=== PATIENT | female | born 1995 | race Caucasian/White ===

== ENCOUNTER 2023-03-22 22:15 | Inpatient (IN) | payer BC, SELFPAY ==
[2023-03-22 22:34] VITALS: BP 115/73; PULSE 104
[2023-03-22 22:35] VITALS: TEMP 35.8
[2023-03-23] VITALS (21 sets, daily range): BP systolic 105–125; BP diastolic 59–79; PULSE 82–107; RESP 16–18; TEMP 35.7–36.6
--- NOTE | 2023-03-23 07:15 | W.PC.ACHO ---
Registration Status: REG OUT Primary Language: Preferred Language:
--- NOTE | 2023-03-23 08:34 | PM.EN ---
Event Note Event Note: patient is and arrived last evening with c/o painful contractions. She was seen in my office last evening and SVE 2-/-3 posterior. She then texted me from home and stated her contractions were getting closer together and more painful and she was going to come to the hospital. I arrived last evening and assessed her and her exam was the same as it was in my office. This morning patient states that the contractions are spacing out some but when she has them they are more painful than what she has experienced since yesterday morning. SVE 3-/-3 . Patient has made cervical change and states the contractions are more painful. I will admit for labor if she continues to change her cervix. I want her to increase her activity and have her shower, ambulate, use the birthing ball. RN to assess at noon, if cervical change patient can be admitted for labor. If cervix has not changed may consider sending her home. PVU and agrees with the plan of care.
[2023-03-23] MEDS: LACTATED RINGER'S SOLUTION 1,000 ML 125 ML IV (12:47)
[2023-03-23 12:49] LABS: Hematocrit 32.5 % (36.0-48.0); Hemoglobin 10.6 g/dL (12.0-16.0); Mean Corpuscular HGB Conc 32.6 g/dL (29.9-35.2); Mean Corpuscular Hemoglobin 27.3 pg (26.7-34.0); Mean Corpuscular Volume 83.8 fL (81.0-99.0); Mean Platelet Volume 10.1 fL (9.5-13.5); Platelet Count 331 10^3/uL (150-450); Red Blood Count 3.88 10^6/uL (4.20-5.40); Red Cell Distribution Width 14.6 % (11.0-15.0); White Blood Count 8.2 10^3/uL (4.0-11.0)
[2023-03-23] MEDS: OXYTOCIN/0.9 % SODIUM CHLORIDE 10 UNITS/500 ML PLAST..BAG 6 UNIT IV (12:49)
--- NOTE | 2023-03-23 13:29 | PM.EN ---
Event Note Event Note: 1320 to room to assess pt SVE AROM with sterile amnihook performed this provider with return of large amount of clear, odorless fluid. heart tones stable before during and after rupture of membranes. SVE after rupture 7--
[2023-03-23 13:47] LABS: Bilirubin Urine NEGATIVE (NEGATIVE); Blood Urine LARGE (NEGATIVE); Clarity Urine CLEAR (CLEAR); Color Urine LT. YELLOW (YELLOW); Glucose Urine UA NEGATIVE (NEGATIVE); Ketones Urine 40 mg/dL (NEGATIVE); Leukocyte Esterase Urine LARGE (NEGATIVE); Nitrite Urine NEGATIVE (NEGATIVE); Protein Urine NEGATIVE (NEG/TRACE); Specific Gravity Urine 1.015 (1.005-1.025); Urobilinogen Urine 0.2 EU/dL (0.2-1.0)
[2023-03-23 14:04] LABS: Urine Microscopic Indicated YES
[2023-03-23 14:07] LABS: Bacteria Urine MODERATE #/HPF (NONE SEEN); Mucus Urine SMALL (NONE SEEN); Squamous Epithelial Cell Urine MANY #/LPF (NONE/RARE); Urine Culture Indicated YES
[2023-03-23 14:10] LABS: Amphetamine Screen Urine NEGATIVE (NEGATIVE); Barbiturates Screen Urine NEGATIVE (NEGATIVE); Benzodiazepines Screen Urine NEGATIVE (NEGATIVE); Buprenorphine Screen Urine NEGATIVE (NEGATIVE); Cannabinoid Screen Urine NEGATIVE (NEGATIVE); Cocaine Screen Urine NEGATIVE (NEGATIVE); Methadone Screen Urine NEGATIVE (NEGATIVE); Methamphetamines Screen Urine NEGATIVE (NEGATIVE); Opiate Screen Urine NEGATIVE (NEGATIVE); Oxycodone Screen Urine NEGATIVE (NEGATIVE); Phencyclidine Screen Urine NEGATIVE (NEGATIVE); Tricyclic Antidepressant Urine NEGATIVE (NEGATIVE)
--- NOTE | 2023-03-23 15:08 | PM.OBPRCVD ---
Procedure Procedure: of viable baby boy over intact perineum events: Labor Augmentation Delivery augmentation: rupture of membranes and pitocin Delivery monitor: external FHT and external uterine Route of delivery: Episiotomy Description: none Laceration description: none Estimated blood loss (mL): 250 Anesthesia type: None Infant Gender: male presentation: vertex Placental delivery description: Spontaneous cord description: 3 Vessels heart rate - 1 minute: 100 bpm or Greater respiratory effort - 1 minute: Spontaneous/Strong Cry muscle tone - 1 minute: Active Movement reflex response - 1 minute: Prompt Response color - 1 minute: Bluish Hands or Feet total score - 1 minute: 9 heart rate - 5 minute: 100 bpm or Greater respiratory effort - 5 minute: Spontaneous/Strong Cry muscle tone - 5 minute: Active Movement reflex response - 5 minute: Prompt Response color - 5 minute: Bluish Hands or Feet total score - 5 minute: 9
[2023-03-23] MEDS: OXYTOCIN/0.9 % SODIUM CHLORIDE 20 UNITS/1,000 ML PLAST..BAG 125 UNIT IV (15:10)
[2023-03-23] MEDS: IBUPROFEN 400 MG TABLET 800 MG PO (16:52)
[2023-03-23] MEDS: BENZOCAINE/MENTHOL 85 GRAM SPRAY BOTTLE 1 APPLIC TOPICAL (19:15)
--- NOTE | 2023-03-23 19:18 | W.PC.ACHO ---
Registration Status: ADM LAURIE Primary Language: Ivorian Preferred Language: Ivorian Active Medications Generic Name Dose Route Start Last Admin Trade Name Freq PRN Reason Stop Dose Admin Acetaminophen 650 mg 03/23/23 15:14 Acetaminophen 325 Mg Tablet PO Q6H PRN Mild Pain Al Hydroxide/Mg Hydroxide 2,400 mg 03/23/23 15:19 Magnesium Hydroxide 2,400 Mg/10 Ml Oral.Susp PO Q6H PRN Dyspepsia Benzocaine/Menthol 1 applic 03/23/23 15:14 03/23/23 19:15 Benzocaine/Menthol 85 Gram [place] Bottle TOPICAL 1 applic Q2H PRN Administration Pain Carboprost Tromethamine 250 mcg 03/23/23 11:57 Carboprost Tromethamine 250 Mcg/Ml 1 Ml Vial IM 03/25/23 11:57 Q15M PRN Bleeding Diphtheria/Pertussis/Tetanus Vacc 0.5 ml 03/25/23 09:00 Adacel Diph,Pertuss(Acell),Tet Vac/Pf 0.5 Ml Adult Syringe IM 03/25/23 09:01 .ONCE ONE Docusate Sodium 100 mg 03/24/23 09:00 Docusate Sodium 100 Mg Capsule PO BID CUATE Ferrous Sulfate 325 mg 03/23/23 21:00 Ferrous Sulfate 325 Mg Tablet PO BID CUATE Oxytocin/Sodium Chloride 10 units in 500 mls @ 6 mls/hr 03/23/23 12:00 03/23/23 15:10 Pitocin 10 Unit/500 Ml-Ns IV Infused CONT CUATE Infusion Protocol 2 MILLIUNIT/MIN Lactated Ringer's 1,000 mls @ 125 mls/hr 03/23/23 12:15 03/23/23 15:11 Lactated Ringers IV Infused .Q8H CUATE Infusion Oxytocin 20 unit/ Sodium 1,002 mls @ 125 mls/hr 03/23/23 15:30 Chloride IV 03/23/23 23:29 Q8H CUATE Ibuprofen 800 mg 03/23/23 15:15 03/23/23 16:52 Ibuprofen 400 Mg Tablet PO 800 mg Q8H CUATE Administration Lidocaine 5 ml 03/23/23 11:57 Lidocaine Viscous 2% 15 Ml Solution TOPICAL ONCE PRN Pain Lidocaine 1 ml 03/23/23 11:57 Lidocaine Hcl 1% 200 Mg/20 Ml Mdv INJ ONCE PRN Pain Measles/Mumps/Rubella Vaccine Live 0.5 ml 03/25/23 09:00 Measles,Mumps,Rubella Vacc/Pf 0.5 Ml Vial SQ 03/25/23 09:01 .ONCE ONE Methylergonovine Maleate 0.2 mg 03/23/23 11:57 Methylergonovine Maleate 0.2 Mg/Ml Ampule IM 03/25/23 11:57 ONCE PRN Uterine Contractility/Contract Methylergonovine Maleate 0.2 mg 03/23/23 11:57 Methylergonovine Maleate 0.2 Mg Tablet PO 03/25/23 11:57 Q4H PRN Uterine Contractility/Contract Misoprostol 600 mcg 03/23/23 11:57 Misoprostol 100 Mcg Tablet PO 03/25/23 11:57 ONCE PRN Uterine Bleeding Misoprostol 800 mcg 03/23/23 11:57 Misoprostol 100 Mcg Tablet SL 03/25/23 11:57 ONCE PRN Uterine Bleeding Misoprostol 1,000 mcg 03/23/23 11:57 Misoprostol 100 Mcg Tablet IL 03/25/23 11:57 ONCE PRN Uterine Bleeding Oxytocin 10 unit 03/23/23 11:57 Oxytocin 10 Unit/Ml Vial IM 03/25/23 11:57 ONCE PRN Bleeding Simethicone 80 mg 03/23/23 15:19 Simethicone 80 Mg Tab.Chew PO QID PRN Abdominal Distention Temazepam 15 mg 03/23/23 20:00 Temazepam 15 Mg Capsule PO QHS PRN Sleep Witch Ling/Glycerin 1 pad 03/23/23 15:14 Glycerin/Witch Ling Pads TOPICAL Q2H PRN Pain Diet Category Date Time Status Regular Consistency Diet Diet 03/23/23 15:14 Active IV Insertion/Site Date of IV Line Insertion [20g 03/23/23 left Forearm] IV Insertion Time [20g left 12:25 Forearm] Neurology Patient orientation (short person,place,time,situation list)
[2023-03-23] MEDS: FERROUS SULFATE 325 MG TABLET PO (23:03)
[2023-03-24] MEDS: IBUPROFEN 400 MG TABLET 800 MG PO ×3 (01:29→21:37)
[2023-03-24 06:11] LABS: Basophils Percent Auto 0.4 % (0.2-2.0); Eosinophils Absolute Auto 0.1 10^3/uL (0.0-0.7); Eosinophils Percent Auto 1.2 % (0.9-7.0); Hematocrit 30.4 % (36.0-48.0); Hemoglobin 9.6 g/dL (12.0-16.0); Immature Granulocytes Abs Auto 0.02 10^3/uL (0.00-0.03); Immature Granulocytes Pct Auto 0.2 % (0.0-0.5); Lymphocytes Absolute Auto 2.2 10^3/uL (1.2-3.8); Lymphocytes Percent Auto 23.2 % (20.5-60.0); Mean Corpuscular HGB Conc 31.6 g/dL (29.9-35.2); Mean Corpuscular Hemoglobin 26.7 pg (26.7-34.0); Mean Corpuscular Volume 84.7 fL (81.0-99.0); Mean Platelet Volume 10.3 fL (9.5-13.5); Monocytes Absolute Auto 0.9 10^3/uL (0.3-0.8); Monocytes Percent Auto 9.9 % (1.7-12.0); Neutrophils Absolute Auto 6.1 10^3/uL (1.4-6.5); Neutrophils Percent Auto 65.1 % (43.0-75.0); Platelet Count 297 10^3/uL (150-450); Red Blood Count 3.59 10^6/uL (4.20-5.40); Red Cell Distribution Width 14.3 % (11.0-15.0); White Blood Count 9.4 10^3/uL (4.0-11.0)
[2023-03-24 08:42] VITALS: BP 106/64; PULSE 71
[2023-03-24] MEDS: DOCUSATE SODIUM 100 MG CAPSULE PO ×2 (08:49→21:37)
[2023-03-24] MEDS: FERROUS SULFATE 325 MG TABLET PO ×2 (08:49→21:37)
--- NOTE | 2023-03-24 13:34 | PM.OBPN ---
OB - PN: Subj Subjective Patient comments: no complaints and pain well controlled status: doing well Exam Constitutional Vital Signs, click to edit/add: Last Vital Signs Temp 96.3 F L 03/23/23 23:05 Pulse 71 03/24/23 08:42 Resp 16 03/23/23 08:54 BP 106/64 03/24/23 08:42 O2 Del Method Room Air 03/23/23 08:52 Documenting provider has reviewed patient's vital signs: yes Common normals: no apparent distress Respiratory Common normals: normal respiratory effort and clear to auscultation bilaterally Cardio Common normals: regular rate and regular rhythm GI Common normals: Normal to inspection, nondistended, normoactive bowel sounds present Extremity Common normals: no clubbing, cyanosis or edema and no calf tenderness Results Labs Labs: Short CBC 03/24/23 Range/Units 05:59 WBC 9.4 (4.0-11.0) 10^3/uL Hgb 9.6 L (12.0-16.0) g/dL Hct 30.4 L (36.0-48.0) % Plt Count 297 (150-450) 10^3/uL Urine 03/23/23 Range/Units 13:12 Urine Color Lt. yellow (YELLOW) Urine Clarity Clear (CLEAR) Urine pH 7.0 (5.0-9.0) Ur Specific Serafina 1.015 (1.005-1.025) Urine Protein Negative (NEG/TRACE) mg/dL Urine Glucose (UA) Negative (NEGATIVE) mg/dL OB - PN: A/P Plan - Vaginal Delivery day: 1 Plan: routine care, discharge home and follow up 6 weeks Time Spent with Patient Time: Total time spent is greater than 50% in coordination of care (as documented) at patient's floor/unit and/or counseling patient: Total time spent with greater than 50% in coordination of care (as documented) at patient's floor/unit and/or counseling patient: less than 15 minutes
[2023-03-25] VITALS (7 sets, daily range): BP systolic 103–118; BP diastolic 59–79; PULSE 72–90; RESP 16; TEMP 35.6–36.3
--- NOTE | 2023-04-03 13:01 | PM.OBDS ---
DS: Providers Provider Date of admission: 03/23/23 11:57 Primary care physician: Non-Staff Physician, Attending physician on admission: Anish Driver Discharging clinician: Anish Driver Anticipated date of discharge: 03/25/23 DS: Diagnosis Discharge Diagnosis (1) Normal vaginal delivery: Assessment and plan: CONDITION GOOD, AFEBRILE, VSS, REQUESTING DISCHARGE, CLINICAL EXAM NON FOCAL Plan DISCHARGE HOME OB - DS: Summary Hospital Course Hospital Course: UNCOMPLICATED Time spent discussing smoking cessation with patient: 3 to 10 minutes Infant Gender: male Discharge plan: home Time Spent with Patient Time attestation: Total time spent providing and/or coordinating discharge services: Time spent: less than 30 minutes Exam Constitutional Vital Signs, click to edit/add: Last Vital Signs Temp 97.1 F L 03/25/23 14:00 Pulse 90 03/25/23 13:38 Resp 16 03/25/23 14:00 BP 103/64 03/25/23 13:38 O2 Del Method Room Air 03/25/23 14:00 Discharge Plan Discharge Disposition: Home, Self-Care Condition: Good Assessment: CLINICAL EXAM NONFOCAL Plan of Treatment: DISCHARGE HOME Discharge Medications: Continued PNV [id number] fumarate-FA [] 28 mg iron- 800 mcg tablet 1 tab PO DAILY famotidine [Acid Controller] 20 mg tablet 20 mg PO DAILY Activity: resume usual activities as tolerated Diet: regular diet Patient Instructions: Vaginal Delivery (DC) Activity Restrictions/Additional Instructions: FBC vaginal delivery d/c instructions given. Forms: Portal Instructions Follow Up Appointments: f/u with Doctor Driver in 6 weeks Discharge Date/Time: 03/25/23 14:28 Discharge location: HOME
--- NOTE | 2023-04-03 13:04 | PM.OBDS ---
DS: Providers Provider Date of admission: 03/23/23 11:57 Primary care physician: Non-Staff Physician, Attending physician on admission: Anish Driver Discharging clinician: Anish Driver Anticipated date of discharge: 03/25/23 DS: Diagnosis Discharge Diagnosis (1) Normal vaginal delivery: Assessment and plan: PPD 2, REQUESTING DISCHARGE, AFEBRILE, VSS, BREAST FEEDING, NO NEED FOR PAIN MEDICATION Plan DISCHARGE HOME, FOLLOW UP IN 6 WEEKS WITH OB PROVIDER, CALL IN INTERIM FOR PROBLEM OR CONCERN OB - DS: Summary Hospital Course Hospital Course: UNCOMPLICATED Time spent discussing smoking cessation with patient: 3 to 10 minutes Peripartum Data - Vaginal Delivery Laceration description: none Complications complications: none Gender: male Discharge plan: home Status at Discharge Cognitive/behavioral status at discharge: NORMAL Time Spent with Patient Time attestation: Total time spent providing and/or coordinating discharge services: Time spent: less than 30 minutes Exam Constitutional Vital Signs, click to edit/add: Last Vital Signs Temp 97.1 F L 03/25/23 14:00 Pulse 90 03/25/23 13:38 Resp 16 03/25/23 14:00 BP 103/64 03/25/23 13:38 O2 Del Method Room Air 03/25/23 14:00 Documenting provider has reviewed patient's vital signs: yes Common normals: no apparent distress, average body habitus, oriented x3 and no limitations HENMT Common normals: normocephalic and head/scalp atraumatic Eye Common normals: PERRL Pupil: accommodation reflex normal Neck & C-Spine Common normals: full ROM and supple Respiratory Common normals: normal respiratory effort and no retractions Cardio Common normals: regular rate and regular rhythm GI Common normals: Normal to inspection, nondistended, normoactive bowel sounds present, soft to palpation and non-tender Common normals: no CVA tenderness Back & Pelvis Common normals: thoracic and lumbar spine normal to inspection and no thoracic nor lumbar tenderness Extremity Common normals: normal to inspection, full ROM and no calf tenderness Neuro Common normals: CN's II-XII intact bilaterally, moves all extremities, no focal motor deficits and no sensory deficits noted Psych Common normals: mental status grossly normal, thought process normal, cooperative, affect normal and speech normal Discharge Plan Discharge Disposition: Home, Self-Care Condition: Good Discharge Medications: Continued PNV cmb#95-ferrous fumarate-FA [] 28 mg iron- 800 mcg tablet 1 tab PO DAILY famotidine [Acid Controller] 20 mg tablet 20 mg PO DAILY Activity Restrictions/Additional Instructions: FBC vaginal delivery d/c instructions given. Forms: Portal Instructions Follow Up Appointments: f/u with Doctor Driver in 6 weeks Discharge Date/Time: 03/25/23 14:28
--- NOTE | 2023-04-10 09:29 | PM.OBDS ---
DS: Providers Provider Date of admission: 03/23/23 11:57 Primary care physician: Non-Staff Physician, DS: Diagnosis Discharge Diagnosis (1) Normal vaginal delivery: OB - DS: Summary Hospital Course Hospital Course: UNCOMPLICATED Time spent discussing smoking cessation with patient: 3 to 10 minutes Complications complications: none Delivery method: spontaneous vaginal delivery Gender: male Discharge plan: home Status at Discharge Cognitive/behavioral status at discharge: WNL Functional status at discharge: independent ambulation Time Spent with Patient Time attestation: Total time spent providing and/or coordinating discharge services: Time spent: less than 30 minutes Exam Constitutional Vital Signs, click to edit/add: Last Vital Signs Temp 97.1 F L 03/25/23 14:00 Pulse 90 03/25/23 13:38 Resp 16 03/25/23 14:00 BP 103/64 03/25/23 13:38 O2 Del Method Room Air 03/25/23 14:00 Common normals: no apparent distress HENMT Common normals: normocephalic and head/scalp atraumatic Eye Pupil: PERRL and accommodation reflex normal Neck & C-Spine Common normals: full ROM and supple Respiratory Common normals: normal respiratory effort Cardio Common normals: regular rate and regular rhythm GI Common normals: Normal to inspection, nondistended, normoactive bowel sounds present Common normals: no CVA tenderness Back & Pelvis Common normals: thoracic and lumbar spine normal to inspection and no thoracic nor lumbar tenderness Extremity Common normals: normal to inspection, full ROM and no calf tenderness Neuro Common normals: CN's II-XII intact bilaterally, moves all extremities, no focal motor deficits and no sensory deficits noted Psych Common normals: mental status grossly normal, thought process normal, cooperative, affect normal and speech normal Discharge Plan Discharge Disposition: Home, Self-Care Condition: Good Assessment: CLINICAL EXAM NONFOCAL Plan of Treatment: DISCHARGE HOME Discharge Medications: Continued PNV cmb#95-ferrous fumarate-FA [] 28 mg iron- 800 mcg tablet 1 tab PO DAILY famotidine [Acid Controller] 20 mg tablet 20 mg PO DAILY Activity: resume usual activities as tolerated Diet: regular diet Patient Instructions: Vaginal Delivery (DC) Activity Restrictions/Additional Instructions: FBC vaginal delivery d/c instructions given. Forms: Portal Instructions Follow Up Appointments: f/u with Doctor Neisha in 6 weeks Discharge Date/Time: 03/25/23 14:28 Discharge location: HOME
== END 2023-03-25 14:28 | disposition home or self-care (01) | DRG 807 ==
LOC: FBC 22:15 → FBCO 03-23 16:20 → FBC 03-23 16:20
PROVIDERS: Admitting Provider Midwife; Visit Provider Midwife
DX: O80 Encounter for full-term uncomplicated delivery (principal); Z37.0 Single live birth; Z3A.38 38 weeks gestation of pregnancy; Z86.16 Personal history of COVID-19
CPT/HCPCS: 36415; 59025; 59410; 80307; 81001; 85025; 85027; 86850; 86900; 86901; 87086; 96365; 96366; G0378

== ENCOUNTER 2023-03-30 08:14 | Outpatient (OUT) | payer BC, SELFPAY ==
--- OUTSIDE RECORDS SUMMARY | 2023-03-30 08:18 | XMS_ITS | CCD ---
Author Name Unknown Address [address] [place] [address] Organization [facility] Care Team Providers Care Social Services Coordinator Name Role Phone JUDY CORNELL Referring Unavailable MARBELLA, DR RINCON Admitting Unavailable MARBELLA, DR RINCON Attending Unavailable MARBELLA, DR RINCON Consulting Unavailable MARBELLA, DR RINCON Primary Care Unavailable FLORO, GAUTAM L Attending Unavailable FLORO, GAUTAM L Attending Unavailable FLORO, GAUTAM L Attending Unavailable FLORO, GAUTAM L Attending Unavailable FLORO, GAUTAM L Attending Unavailable FLORO, GAUTAM L Referring Unavailable FLORO, GAUTAM L Attending Unavailable FLORO, GAUTAM L Attending Unavailable Problems Active Problems Problem Classification Problem Date Documented Da te Episodic/Chronic Administrative/social admission (2 sources) Encounter for pre-employment examination; Translations: [Encounter for pre-employment examination] Onset: 12-26-2021 Episodic Past or Other Problems Problem Classification Problem Date Documented Da te Episodic/Chronic Immunizations and screening for infectious disease (4 sources) Contact with and (suspected) exposure to other viral communicable diseases; Translations: [CONTCT EXPS OTH VIRL COMMUNICABL DZ] Onset: 02-28-2020 Episodic Results Test Name Value Interpretation Reference Range Facility US OB FOLLOW UP TRANSABDOMIN AL APPROACHon 01-18-2023 US OB FOLLOW UP TRANSABDOMINAL APPROACH EXAM: US OB FOLLOW UP TRANSABDOMINAL APPROACH DATE: 01/18/2023 9:29 AM COMPARISON: 11/26/2022 Transabdominal ultrasound of the gravid uterus was performed. FINDINGS: A single live intrauterine is noted in breech position. cardiac activity is measured at 156 bpm. The cervix appears closed measuring approximately 4.6 cm in longitudinal length. A grade 0-appearing placenta is posterior/fundal without evidence of placenta previa. The amniotic fluid index measures approximately 14.2 cm measured in 4 quadrants, which is within normal limits for gestation. 46th percentile MEASUREMENTS: BPD 7.3 cm, HC 26.9 cm, FL 5.6 cm, AC 25.1 cm, which corresponds to 29 weeks 2 days, +/-2.5 weeks. ESTIMATED WEIGHT: 1369 g (3 lbs. 0 oz.), which is 28th percentile for gestation by LMP. No gross anatomic abnormalities are identified, within limits of the advanced gestational age. IMPRESSION: SINGLE LIVE INTRAUTERINE CORRESPONDING TO APPROXIMATELY 29 weeks 2 days, +/-2.5 weeks. NO GROSS ABNORMALITY IDENTIFIED, WITHIN THE LIMITS OF THE STUDY. ELECTRONICALLY SIGNED BY: Anish Fisher MD Normal Not Available US OB Growthon 02-12-2022 US OB Growth FINDINGS: Comparison made with prior examination of December 22, 2021 delivery was February 19, 2022, October 13, 2021 delivery at that time was February 25, 2022. Prior percentile weight was 68.8%. A single, live intrauterine is present with normal cardiac rate of 132 beats per minute. Normal activity and amniotic fluid volume. Amniotic fluid index is 10.0 cm. Morphology is grossly normal. The cervix is long and closed, 4.4 cm. The placenta is anterior, Grade 2 not associated with the cervical os. The current sonographic age is 37 weeks and 2 days, based on the following measurements: BPD 9.2 cm (37 weeks, 2 days) Head Circumference 33.7 cm ( 38 weeks, 5 days) Abdominal Circumference 32.7 cm (36 weeks, 4 days) Femur Length 7.1 cm (36 weeks, 3 days) Presentation Cephalic Placenta Anterior, Grade 2 Weight by Percentile 33.0% These measurements result in an estimated date of delivery of March 03, 2022. The current estimated weight is 3048 grams +/- grams (6 pound, 11ounces). IMPRESSION: 1.Single, live intrauterine , current sonographic age of 37 weeks and 2 days, with an estimated date of delivery of March 03, 2022. 2 Prior weight by percentile was 68.8% and now is 33.0% Report reported and signed by Marvin Hamilton on 02/12/2022 0957 Normal [facility] T-Spoton 12-29-2021 T-Spot. TB Test Normal [facility] Comment on above: Result Comment: [employer] [address] [place] [phone] (NOTE) T-SPOT TB Negative Normal Value: Negative A negative test result does not exclude the possibility of exposure to or infection with Mycobacterium tuberculosis (M tuberculosis). Patients with recent exposure to TB infected individuals exhibiting a negative T-SPOT.TB result should be considered for retesting within 6 weeks or if other relevant clinical symptoms indicate. Results from T-SPOT.TB testing must be used in conjunction with each individual's epidemiological history, current medical status, and results of other diagnostic evaluations. The T-SPOT.TB test is qualitative and results are reported as positive, borderline or negative, given that the test controls perform as expected. In line with the Centers for Disease Control and Prevention's 2010 recommendation to report quantitative measurements alongside the qualitative result, the laboratory provides spot counts for information purposes only. The T-SPOT.TB test should be interpreted as a quantitative test. Panel A Spot Count (Corrected for Negative Control) 0 Panel B Spot Count (Corrected for Negative Control) 1 Negative Control Passed Positive Control Passed Performed By: #### T SPOT #### [facility] [address] [place] [address] Vice President Quality Improvement: Sameer May MD US OB Growthon 12-22-2021 US OB Growth FINDINGS: Comparison made with prior examination of October 13, 2021 delivery at that time was February 25, 2022. weight at that time was 55.2% A single, live intrauterine is present with normal cardiac rate of 136 beats per minute. Normal activity and amniotic fluid volume. Amniotic fluid index is 18.0 cm. Morphology is grossly normal. The cervix is long and closed, 4.7 cm. The placenta is anterior, not associated with the cervical os. The current sonographic age is 31 weeks and 4 days, based on the following measurements: BPD 7.9 cm (31 weeks, 4 days) Head Circumference 29.2 cm (32 weeks, 2 days) Abdominal Circumference 27.5 cm (31 weeks, 4 days) Femur Length 6.0 cm ( 31 weeks, 0 days) Presentation Cephalic Placenta Anterior Grade 1 Weight by percentile 68.8% These measurements result in an estimated date of delivery of February 19, 2022. The current estimated weight is 1778 grams +/- grams ( 3 pound, 15 ounces). IMPRESSION: 1. Single, live intrauterine , current sonographic age of 31 weeks and 4 days, with an estimated date of delivery of February 19, 2022. (October 13, 2021 examination delivery date was February 25, 2022). 3. 68.8% weight by percentile (October 13, 2021 examination weight was 55.2%) Report reported and signed by Marvin Hamilton on 12/23/2021 0940 Normal [facility] US OB 2nd/3rd Trimesteron US OB 2nd/3rd Trimester FINDINGS: A single, live intrauterine is present with normal cardiac rate of 139 beats per minute. Normal activity and amniotic fluid volume. Amniotic fluid index is 11.0 cm. Morphology is grossly normal. The cervix is long and closed, 4.8 cm. The placenta is anterior, Grade 1 not associated with the cervical os. The current sonographic age is 20 weeks and 5 days, based on the following measurements: BPD 4.9 cm ( 20 weeks, 5 days) Head Circumference 18.4 cm (20 weeks, 5 days) Abdominal Circumference 15.6 cm ( 20 weeks, 5 days) Femur Length 3.4 cm ( 20 weeks, 6 days) Presentation Cephalic Placenta Anterior Grade 1 Weight by percentile 55.2% These measurements result in an estimated date of delivery of February 25, 2022. The current estimated weight is 376 grams +/- grams ( pound, 13 ounces). IMPRESSION: Single, live intrauterine , current sonographic age of 20 weeks and 5 days, with an estimated date of delivery of February 25, 2022. Report reported and signed by Marvin Hamilton on 10/14/2021 0931 Normal [facility] Encounters Encounter Date Encounter Type Care Provider Facility Start: 03-22-2023 End: 03-23-2023 ambulatory GAUTAM L FLORO Not Available Start: 03-15-2023 End: 03-16-2023 ambulatory GAUTAM L FLORO Not Available Start: 03-08-2023 End: 03-09-2023 ambulatory GAUTAM L FLORO Not Available Start: 03-02-2023 End: 03-03-2023 ambulatory GAUTAM L FLORO Not Available Start: 02-15-2023 End: 02-16-2023 ambulatory GAUTAM PATEL Not Available Start: 02-03-2023 End: 02-04-2023 ambulatory GAUTAM PATEL Not Available Start: 01-18-2023 End: 01-19-2023 ambulatory GAUTAM PATEL Not Available Start: 12-26-2021 End: 12-27-2021 [facility] Start: 02-28-2020 End: 02-28-[address] SERGEY TYSON Facility: Payers Date Payer Category Payer Unknown [id number] [id number] 1993 Unknown [id number] [id number] [id number] 1993 Unknown [id number] 2.16.84 [id number] 1993 Unknown [id number] 2.16.84 [id number] 1993 Unknown [id number] 1993 Unknown [id number] 1993 Unknown [id number] 1993 Unknown [id number] 1993 Unknown [id number] 1959 Unknown [id number] Clinical Note 02-24-2022 Note Date & Type Note Facility 02-24-2022 Note FINDINGS: Comparison made with prior two ultrasound evaluations February 12, 2022, December 22, 2021. A single, live intrauterine is present with normal cardiac rate of 128 beats per minute. Normal activity and amniotic fluid volume. Amniotic fluid index is 15 cm. Morphology is grossly normal. The cervix is long and closed, 3.6 cm. The placenta is anterior, not associated with the cervical os. The current sonographic age is 37 weeks and 4 days, based on the following measurements: BPD 9.3 cm (37 weeks,4 days) Head Circumference 33.4 cm (38 weeks, 2 days) Abdominal Circumference 32.7 cm (36 weeks,4 days) Femur Length 7.4 cm (37 weeks, 5 days) Presentation Cephalic Placenta Anterior Grade II Weight (g) by [id number] % * These measurements result in an estimated date of delivery of March 13, 2022. The current estimated weight is 3140 grams (6 pounds, 15 ounces). IMPRESSION: 1. Single, live intrauterine , current sonographic age of 37 weeks and 4 days, with an estimated date of delivery of March 13, 2022 (prior CHITO March 03, 2022) 2. Prior weight percentile was 68.8% (December 22, 2021), 33.0% (February 12, 2022), and currently 18.4% 3. Anterior placenta, Grade II, closed cervix * Estimated Weight (g) by Percentile is based upon an accurate estimated age based on last menstrual period. Report reported and signed by Marvin Hamilton on 02/24/2022 0956 [facility] Summary Purpose Family History No Family History Records FoundNo Family History Records FoundNo Family History Records FoundNo Family History Records Found Advance Directives No Advanced Directives Records FoundNo Advanced Directives Records FoundNo Advanced Directives Records FoundNo Advanced Directives Records Found Additional Source Comments INFORMATION SOURCE (unrecogn ized section and content) DATE CREATED AUTHOR 12/29/2021 [facility] DATE CREATED AUTHOR AUTHOR'S ORGANIZ ATION 02/24/2022 [facility] DATE CREATED AUTHOR AUTHOR'S ORGANIZ ATION 03/03/2022 [facility] DATE CREATED AUTHOR AUTHOR'S ORGANIZ ATION 03/27/2023 [facility] FOR RECORDS PERTAINING TO PATIENTS WHO ARE OR HAVE BEEN ENROLLED IN A CHEMICAL DEPENDENCY/SUBSTANCEABUSE PROGRAM, SOME INFORMATION MAY BE OMITTED. This clinical summary was aggregated from multiple sources. Caution should be exercised in using it in the provision of clinical care. This summary normalizes information from multiple sources, and as a consequence, information in this document may materially change the coding, format and clinical context of patient data. In addition, data may be omitted in some cases. CLINICAL DECISIONS SHOULD BE BASED ON THE PRIMARY CLINICAL RECORDS. [facility] [employer] [facility]. provides no warranty or guarantee of the accuracy or completeness of information in this document.
--- NOTE | 2023-03-30 13:31 | PC.NURSE ---
BrionnaDudleyon, and 7 day old son Aurelio arrive for follow up visit. Parents states are doing well and family adjusting well to new baby. Mom states I feel great, just tired sometimes Milk in, nipples intact, no redness, or open area on nipples. Brionna's VVS and assessment WNL. Denies concerns or questions about care for herself. Walker alert and tracks voices. VVS and assessment WNL. Feeds every 2 hours and has 1 longer stretch during the late evening . Usually nurses 1 breast. Encouraged to have baby nurse from both breasts each feed. Verbalized understanding. Baby to breast, quick reminder to bring baby to breast, not breast to baby. Deep latch noted and mom reports increased comfort, states doesn't feel like he is clamping down Reviewed benefits of deep asymmetrical latching and positioning close to mom's body. Verbalized understanding. Given information on plugged ducts, and mastitis. Has with second baby and does not want to experience again. Leaves ambulatory with all questions answered. Aware to call for concerns and of MOMS group.
[2023-03-30 13:35] VITALS: BP 110/73; PULSE 89; RESP 16; TEMP 36.6; O2SAT 97
== END 2023-03-30 11:25 | disposition home or self-care (01) ==
LOC: FBCO 08:15
PROVIDERS: Visit Provider Midwife
DX: Z39.2 Encounter for routine postpartum follow-up (principal)

== ENCOUNTER 2024-02-11 14:57 | Emergency (ER) | payer SELFPAY ==
[2024-02-11 15:04] VITALS: BP 138/90; PULSE 123; TEMP 36.7; O2SAT 98; BMI 23.4
--- NOTE | 2024-02-11 15:15 | US_ITS ---
[address] [address] Patient Name: KRISTEN PRIEST MRN: [id number] date: 1995 Sex: F Assigned Patient Location: ER Current Patient Location: ER Accession/Order Number: [id number] Exam Date: 02/11/2024 15:58 Report Date: 02/11/2024 17:08 At the request of: ESTHER AYALA Procedure: US OB transvaginal Obstetrical ultrasound, 1st trimester CLINICAL: Vaginal bleeding TECHNIQUE: Transabdominal and transvaginal obstetrical ultrasound was performed. FINDINGS: Comparison: None. UTERUS: Uterus is retroverted. A single intrauterine gestation sac is visualized. Mean sac diameter is 4.60 cm. Yolk sac and pole identified. [place] rump length is 48.4 mm. heart rate of 164 beats per minute. The cervix is closed. Cervical length of 3.6 cm. OVARIES/ADNEXA: Neither ovary is visualized. OTHER FINDINGS: There is a small hypoechoic area adjacent to the gestational sac measuring 1.9 x 0.6 x 0.6 cm compatible with a small subchorionic hemorrhage. ULTRASOUND GESTATIONAL AGE AND ESTIMATED DATE OF CONFINEMENT: The estimated gestational age by ultrasound is 11 weeks 4 days with an estimated date of confinement by the ultrasound of 08/28/2024. US/US OB transvaginal IMPRESSION: 1. Single viable intrauterine gestation with yolk sac and pole identified. heart rate of 164 beats per minute. Estimated gestational age by ultrasound is 11 weeks 4 days with an estimated date of confinement by ultrasound of 08/28/2024. Follow-up ultrasound at 18-22 weeks' gestation for anatomy evaluation. 2. 1.9 x 0.6 x 0.6 cm subchorionic hemorrhage. Attention on follow-up studies. 3. Closed cervix with cervical length of 3.6 cm. Electronically authenticated by: SNEHA FREITAS Date: 02/11/2024 17:08
--- NOTE | 2024-02-11 15:16 | ED_ITS ---
HPI - General Chief complaint: Vaginal Bleeding Stated complaint: vaginal bleed - 11 weeks preg Time Seen by Provider: 02/11/24 15:09 Source: patient Mode of arrival: walk-in History of Present Illness HPI Narrative: Patient is a 28-year-old female who presents to the emergency department for vaginal bleeding that began about 30 minutes ago. This is a surrogacy for another alliance party, she states she has had 5 previous pregnancies with no issues. She was sick about a month ago with pneumonia and upper respiratory symptoms, she completed medications and antibiotics and followed up with her specialist [employer]ESS [employer] in [place], she had an ultrasound this week that showed the cervix was long and closed. She was found to have a subchorionic hemorrhage about 1 month ago, she states that she was told that it was gone on this most recent ultrasound. Previous documentation shows she has a positive blood type. She denies any significant abdominal pain, vomiting or diarrhea. No urinary symptoms. Related Data Home Medications ?Medication ?Instructions ?Recorded ?Confirmed vit no.95-ferrous 1 tab PO DAILY 03/23/23 02/11/24 fumarate 28 mg-folic acid 800 mcg tablet () Allergies Allergy/AdvReac Type Severity Reaction Status Date / Time No Known Drug Allergies Allergy Verified 03/22/23 22:59 Review of Systems ROS Constitutional Denies: fever or chills Cardiovascular Denies: chest pain Respiratory Denies: shortness of breath or cough Gastrointestinal Denies: abdominal pain, nausea, vomiting or diarrhea Musculoskeletal Denies: back pain Integumentary/Breast Denies: rash Neurological Denies: numbness in extremities or weakness in extremities Hematologic/Lymphatic Denies: easy bruising or easy bleeding [facility] Medical History (Updated 02/11/24 @ 17:23 by ADELSO Garcia) Normal vaginal delivery ?O80 - Encounter for full-term uncomplicated delivery (ICD-10) Social History Little interest or pleasure in doing things: not at all Feeling down, depressed, or hopeless: not at all Exam Narrative Exam Narrative: Gen.: Awake, alert, in no distress Head: Normocephalic, atraumatic ENT: Moist mucous membranes Respiratory: No respiratory distress Gastrointestinal: Abdomen is soft, nondistended and nontender to palpation Extremities: Moves extremities equally Psych: Normal mood and affect Neuro: No focal neuro deficit Skin: Warm, dry, intact Constitutional Vital Signs, click to edit/add: Last Vital Signs Temp 98.0 F 02/11/24 15:04 Pulse 123 H 02/11/24 15:04 Resp 18 02/11/24 15:04 BP 138/90 02/11/24 15:04 Pulse Ox 98 02/11/24 15:04 Course Vital Signs Vital signs: Vital Signs Temperature 98.0 F 02/11/24 15:04 Pulse Rate 123 H 02/11/24 15:04 Respiratory Rate 18 02/11/24 15:04 Blood Pressure 138/90 02/11/24 15:04 Pulse Oximetry 98 02/11/24 15:04 Temperature 98.0 F 02/11/24 15:04 Pulse Rate 123 H 02/11/24 15:04 Respiratory Rate 18 02/11/24 15:04 Blood Pressure 138/90 02/11/24 15:04 Pulse Oximetry 98 02/11/24 15:04 MDM - OB/Uterine Contractions MDM Narrative Medical decision making narrative: Patient was noted to have elevated white blood cell count, Neupogen is listed in her pharmacy records and she and her state that she used the Neupogen yesterday. She has no other fevers, significant upper respiratory symptoms, vomiting or urinary symptoms. Abdomen is soft and benign. Hemoglobin is stable. Patient with A+ blood type. Ultrasound shows the patient has a viable intrauterine gestation at 11 weeks and 4 days with a heart rate 164, cervix is closed and there is a 2 cm subchorionic hemorrhage. Patient was encouraged to follow pelvic rest, take it easy over the weekend and she has an appointment for recheck on Wednesday with the fertility clinic in [place] that is managing her surrogacy. Patient was given education and reassurance, she is very relieved on reevaluation, ultrasound results were given at bedside. Return to the ER if symptoms change or worsen SUPERVISED APC VISIT, PHYSICIAN ATTESTATION: Based on the medical record the care appears appropriate. ? Medical Records Attestation: I reviewed the patient's medical records. Lab Data Attestation: I reviewed the patient's lab results. Labs: Lab Results 02/11/24 02/11/24 Range/Units 15:23 16:30 WBC 22.6 H (4.0-11.0) 10^3/uL RBC 4.34 (4.20-5.40) 10^6/uL Hgb 13.2 (12.0-16.0) g/dL Hct 38.8 (36.0-48.0) % MCV 89.4 (81.0-99.0) fL MCH 30.4 (26.7-34.0) pg MCHC 34.0 (29.9-35.2) g/dL RDW 13.0 (11.0-15.0) % Plt Count 423 (150-450) 10^3/uL MPV 9.0 L (9.5-13.5) fL Neut % (Auto) 85.6 H (43.0-75.0) % Lymph % (Auto) 10.2 L (20.5-60.0) % Norton % (Auto) 2.9 (1.7-12.0) % Eos % (Auto) 0.4 L (0.9-7.0) % Baso % (Auto) 0.4 (0.2-2.0) % Neut # (Auto) 19.4 H (1.4-6.5) 10^3/uL Lymph # (Auto) 2.3 (1.2-3.8) 10^3/uL Norton # (Auto) 0.7 (0.3-0.8) 10^3/uL Eos # (Auto) 0.1 (0.0-0.7) 10^3/uL Baso # (Auto) 0.1 (0.0-0.1) 10^3/uL Abs Immat Gran (auto) 0.11 H (0.00-0.03) 10^3/uL Imm/Tot Granulo (auto) 0.5 (0.0-0.5) % HCG, Quant 73126 mIU/mL Urine Color Red A (YELLOW) Urine Clarity Sl cloudy (CLEAR) Urine pH 6.0 (5.0-9.0) Ur Specific [place] 1.025 (1.005-1.025) Urine Protein >=300 A (NEG/TRACE) mg/dL Urine Glucose (UA) Negative (NEGATIVE) mg/dL Urine Ketones Negative (NEGATIVE) mg/dL Urine Occult Blood Large A (NEGATIVE) Urine Nitrite Negative (NEGATIVE) Urine Bilirubin Negative (NEGATIVE) Urine Urobilinogen 0.2 (0.2-1.0) EU/dL Ur Leukocyte Esterase Negative (NEGATIVE) Imaging Data US - abdomen: Attestation: I have reviewed the pertinent imaging results. Radiologist's impression: ITS Impressions Transvaginal US 02/11/24 15:15 IMPRESSION: 1. Single viable intrauterine gestation with yolk sac and pole identified. heart rate of 164 beats per minute. Estimated gestational age by ultrasound is 11 weeks 4 days with an estimated date of confinement by ultrasound of 08/28/2024. Follow-up ultrasound at 18-22 weeks' gestation for anatomy evaluation. 2. 1.9 x 0.6 x 0.6 cm subchorionic hemorrhage. Attention on follow-up studies. 3. Closed cervix with cervical length of 3.6 cm. Electronically authenticated by: SNEHA FREITAS Date: 02/11/2024 17:08 Discharge Plan Discharge Chief Complaint: Vaginal Bleeding Clinical Impression: Vaginal bleeding during , Subchorionic hemorrhage in first trimester Patient Disposition: Home, Self-Care Time of Disposition Decision: 17:23 Condition: Good Prescriptions / Home Meds: No Action PNV cmb#95-ferrous fumarate-FA [] 28 mg iron- 800 mcg tablet 1 tab PO DAILY Print Language: Greenlandic Instructions: Subchorionic Hemorrhage (ED) Additional Instructions: Follow up with your OB as scheduled Referrals: Physician,Non-Staff, [Physician] - 1 week
--- OUTSIDE RECORDS SUMMARY | 2024-02-11 15:16 | XMS_ITS | CCD ---
Author Organization [facility] Care Team Providers Care Host/Hostess Restaurant Name Role Phone MARBELLA, DR RINCON Admitting Unavailable MARBELLA, DR RINCON Attending Unavailable MARBELLA, DR RINCON Consulting Unavailable MARBELLA, DR RINCON Primary Care Unavailable Laverne Aguilera MD Primary Care Provider LAVERNE NOONAN Primary Care Un available SHAMMA, KEMAR DE SANTIAGO Referring Unavailab le SHAMPAVITHRA, KEMAR DE SANTIAGO Referring Unavailab le LAVERNE NOONAN Primary Care Un available FLOROGAUTAM Attending Unavailable FLOROGAUTAM Attending Unavailable FLORO, GAUTAM Harrison Attending Unavailable FLORO, GAUTAM Hunter Attending Unavailable FLORO, GAUTAM Hunter Attending Unavailable FLORO, GAUTAM Hunter Attending Unavailable FLORO, GAUTAM Harrison Attending Unavailable HEIDI BRUCE Attending Unavailable HEIDI BRUCE Attending Unavailable Medications Current Medications Medication Drug Class(es) Dates Sig (Normalized) Sig (Original) 84 hr estradiol 0.86177 mg/hr transdermal system (4 sources) Estrogen Start: 02-02-2024 estradiol (Vivelle-DOT) 0.1 MG/24HR APPLY 1 PATCH TOPICALLY TO THE SKIN EVERY 3 DAYS 02/02/2024 Active Start: 01-10-2024 estradiol (Est race) 2 MG tablet Take 2 mg by mouth in the morning and 2 mg at noon and 2 mg in the evening and 2 mg before bedtime. 01/10/2024 Active 0.5 ml filgrastim 0.6 mg/ml prefilled syringe (2 sources) Leukocyte Growth Factor Start: 01-26-2024 Neupogen 300 MCG/0.5ML ADMINISTER ONE SYRINGE UNDER THE SKIN A SINGLE DOSE DIRECTED. 01/26/2024 Active MV-Min-Fe Fum-FA-DHA ( 1 PO) (2 sources) MV-Min- Fe Fum-FA-DHA ( 1 PO) Take by mouth Active progesterone 50 mg/ml injectable solution (2 sources) Progesterone Start: 12-27-2023 progesterone 5 0 MG/ML injection ADMINISTER 2 ML IN THE MUSCLE DAILY 12/27/2023 Active Completed/Discontinued Medications Medication Drug Class(es) Dates Sig (Normalized) Sig (Original) azithromycin 250 mg oral tablet (4 sources) Macrolide Antimicrobial Start: 01-18-2024 End: 02-07-2024 take 1 tablet by mouth once, then take 1 tablet by mouth every twenty-four hours azithromycin (Zithromax) 250 MG tablet Indications: Rhonchi 500 mg po x1 on day 1 and then 250 mg PO q 24 hours x4 days 6 tablet 01/18/2024 02/07/2024 Discontinued desogestrel 0.15 mg / ethinyl estradiol 0.03 mg oral tablet (5 sources) Progestin, Estrogen Start: 08-23-2023 End: 02-07-2024 Isibloom 0.15-30 MG-MCG tablet 08/23/2023 02/07/2024 Discontinued nitrofurantoin, macrocrystals 25 mg / nitrofurantoin, monohydrate 75 mg oral capsule (5 sources) Nitrofuran Antibacterial Start: 08-29-2023 End: 02-07-2024 nitrofurantoin, macrocrystal-monoh ydrate, (Macrobid) 100 MG capsule 08/29/2023 02/07/2024 Discontinued Problems Active Problems Problem Classification Problem Date Documented Da te Episodic/Chronic Anxiety disorders (15 sources) Anxiety; Translations: [Anxiety disorder, unspecified] Onset: 12-23-2022 12-23-2022 Chronic Asthma (5 sources) Exercise-induced asthma; Translations: [Exercise induced bronchospasm] Onset: 12-23-2022 12-23-2022 Chronic Headache; including migraine (5 sources) Chronic post-traumatic headache; Translations: [Chronic post-traumatic headache, not intractable] Onset: 12-23-2022 12-23-2022 Chronic Joint disorders and dislocations; trauma-related (5 sources) Derangement of left knee; Translations: [Unspecified internal derangement of left knee] Onset: 12-23-2022 12-23-2022 Chronic Other circulatory disease (1 source) Wheeze - rhonchi; Translations: [Other specified symptoms and signs involving the circulatory and respiratory systems] 01-18-2024 Episodic Other endocrine disorders (2 sources) Endocrine disorder, unspecified; Translations: [Endocrine disorder, unspecified] Onset: 12-16-2023 Episodic Other upper respiratory infections (2 sources) Viral upper respiratory tract infection; Translations: [Acute upper respiratory infection, unspecified] 02-07-2024 Episodic Past or Other Problems Problem Classification Problem Date Documented Da te Episodic/Chronic Conditions associated with dizziness or vertigo (5 sources) Dizziness; Translations: [Dizziness and giddiness] Onset: 12-23-2022 12-23-2022 Episodic Fracture of lower limb (5 sources) Stress fracture of tibia; Translations: [Stress fracture, left tibia, subsequent encounter for fracture with routine healing] Onset: 12-23-2022 12-23-2022 Episodic Headache; including migraine (5 sources) Chronic daily headache; Translations: [Chronic daily headache] Onset: 12-23-2022 12-23-2022 Episodic Immunizations and screening for infectious disease (4 sources) Contact with and (suspected) exposure to other viral communicable diseases; Translations: [CONTCT EXPS OTH VIRL COMMUNICABL DZ] Onset: 02-28-2020 Episodic Intracranial injury (5 sources) Concussion injury of body structure; Translations: [Concussion] Onset: 12-23-2022 12-23-2022 Episodic Other complications of ; puerperium affecting management of mother (5 sources) hemorrhage; Translations: [Other immediate hemorrhage] Onset: 03-06-2022 12-23-2022 Episodic Other complications of (5 sources) Placenta circumvallata; Translations: [Circumvallate placenta, unspecified trimester] Onset: 05-28-2019 12-23-2022 Episodic Other ear and sense organ disorders (5 sources) Tinnitus of right ear; Translations: [Tinnitus, right ear] Onset: 12-23-2022 12-23-2022 Episodic Other non-traumatic joint disorders (5 sources) Pain in left knee; Translations: [Pain in joint, lower leg] Onset: 12-23-2022 12-23-2022 Episodic Other and delivery including normal (10 sources) Patient encounter status; Translations: [Encounter for supervision of normal , unspecified, unspecified trimester] Onset: 04-03-2019 12-23-2022 Episodic Urinary tract infections (5 sources) Lower urinary tract infectious disease; Translations: [Urinary tract infection, site not specified] Onset: 12-23-2022 12-23-2022 Episodic Results Test Name Value Interpretation Reference Range Facil ity ALL PROGESTERONEon MHPT PROGESTERONE 47.9 ng/mL [facility] Comment on above: Female: Follicular phase <0.19 ng/mL Ovulation phase 0.06-4.14 ng/mL Luteal phase 4.11-14.5 ng/mL Postmenopausal <0.13 ng/mL Estradiolon 12-16-2023 Estradiol 459.0 pg/mL Normal [facility] Comment on above: Result Comment: FEMALES: Normally menstruating Luteal phase 60-232 Follicular phase 31-90 Midcycle phase 60-533 Postmenopausal (untreated) <138 Fulvestrant treatment will show an increased estradiol concentration with this methodology. Alternate methodologies are available upon request. Performed By: #### E 2, PROG #### [employer] [address] [place] [address] Transformation Analyst: Sameer May MD MHPT ESTRADIOLon 12-16-2023 MHPT ESTRADIOL 459 pg/mL [facility] Comment on above: FEMALES: Normally menstruating Luteal phase 60-232 Follicular phase 31-90 Midcycle phase 60-533 Postmenopausal (untreated) <138 Fulvestrant treatment will show an increased estradiol concentration with this methodology. Alternate methodologies are available upon request. No Panel Informationon 12-15 Original Ordering Provider: KEMAR DE SANTIAGO MD [facility] e Progesteroneon 12-16-2023 Progesterone 47.90 ng/mL Normal [facility] Comment on above: Result Comment: Female: Follicular phase <0.19 ng/mL Ovulation phase 0.06-4.14 ng/mL Luteal phase 4.11-14.5 ng/mL Postmenopausal <0.13 ng/mL Performed By: #### E 2, PROG #### [employer] [address] [place], [place] [id number] Transformation Analyst: Sameer May MD HCG, Quanton 11-02-2023 HCG, Quant <0.2 Normal 0-7 [facility] Comment on above: Result Comment: Non-preg premeno <=5 Postmeno <=8 Male <=3 If HCG results do not concur with clinical observations, additional testing to confirm results is recommended. Performed By: #### B HCG #### [employer] [address] [place] [address] Transformation Analyst: Sameer May MD US OB Growthon 02-12-2022 US OB Growth [...] by Marvin Hamilton on 02/12/2022 0957 Normal [facility] US OB Growthon 12-22-2021 US OB Growth [...] by Marvin Hamilton on 12/23/2021 0940 Normal [facility] Oven Operator Automatic US OB 2nd/3rd Trimesteron US OB 2nd/3rd [...] by Marvin Hamilton on 10/14/2021 0931 Normal [facility] Oven Operator Automatic Vital Signs Date Time Vital Sign Value Performing Clinician Garrick watters 02-07-2024 13:31-0500 Body height 170.2 cm Heidi Bruce DINING SERVICE INSPECTOR Work Phone: [facility] 02-07-2024 13:31-0500 Body mass index (BMI) [Ratio] 22.71 kg/m2 Heidi Bruce DINING SERVICE INSPECTOR Work Phone: [facility] 02-07-2024 13:31-0500 Body temperature 97.81 [degF] Heidi Bruce DINING SERVICE INSPECTOR Work Phone: [facility] 02-07-2024 13:31-0500 Body weight 65.77 kg Heidi Bruce DINING SERVICE INSPECTOR Work Phone: [facility] 02-07-2024 13:31-0500 Diastolic blood pressure 60 mm[Hg] Heidi Bruce DINING SERVICE INSPECTOR Work Phone: [facility] 02-07-2024 13:31-0500 Heart rate 110 /min Heidi Bruce DINING SERVICE INSPECTOR Work Phone: [facility] 02-07-2024 13:31-0500 SaO2% (BldA) [Mass fraction] 99 % Heidi Bruce DINING SERVICE INSPECTOR Work Phone: [facility] 02-07-2024 13:31-0500 Systolic blood pressure 118 mm[Hg] Heidi Bruce DINING SERVICE INSPECTOR Work Phone: [facility] Healthcare Encounters Encounter Date Encounter Type Care Provider Facility Start: 02-07-2024 End: 02-07-2024 Bamboo flowsheet Heidi Bruce DINING SERVICE INSPECTOR Work Phone: [facility] Start: 02-07-2024 End: 02-07-2024 Bamboo flowsheet Heidi Bruce DINING SERVICE INSPECTOR Work Phone: [facility] Start: 02-07-2024 End: 02-07-2024 Office outpatient visit 15 minutes Heidi Bruce DINING SERVICE INSPECTOR Work Phone: [facility] Comment on above: Viral URI with cough (Primary Dx) Start: 02-07-2024 End: 02-07-2024 ambulatory HEIDI BRUCE Not Available Start: 01-18-2024 End: 01-18-2024 Orders Only Gautam L Floro CNM Work Phone: [facility] Comment on above: Rhonchi (Primary Dx) Start: 12-16-2023 End: 12-16-2023 [facility] Result Encounter Generic External Data Provider [facility] External Department Unsolicited Start: 12-16-2023 End: 12-16-2023 [facility] Result Encounter Generic External Data Provider [facility] External [facility] Unsolicited Start: 12-16-2023 End: 12-16-2023 [facility] Start: 11-02-2023 End: 11-02-2023 ambulatory [facility] Start: 11-02-2023 End: 11-02-2023 Encounter for preprocedural laboratory examination [facility] Start: 08-30-2023 End: 08-30-2023 ambulatory HEIDI BRUCE Not Available Start: 06-23-2023 End: 06-23-2023 ambulatory GAUTAM L FLORO Not Available Start: 05-12-2023 End: 05-12-2023 ambulatory GAUTAM L FLORO Not Available Start: 03-22-2023 End: 03-22-2023 ambulatory GAUTAM L FLORO Not Available Start: 03-15-2023 End: 03-15-2023 ambulatory GAUTAM L FLORO Not Available Start: 03-08-2023 End: 03-08-2023 ambulatory GAUTAM L FLORO Not Available Start: 03-02-2023 End: 03-02-2023 ambulatory GAUTAM L FLORO Not Available Start: 02-15-2023 End: 02-15-2023 ambulatory GAUTAM NOLASCO Not Available Start: 02-28-2020 End: 02-28-[address] SERGEY TYSON Facility:[facility]1 Procedures Date Procedure Procedure Detail Performing Clinician Start: 12-16-2023 ALL PROGESTERONE Generi c External Data Provider Start: 12-16-2023 MHPT ESTRADIOL Generic External Data Provider Plan of Treatment Date Care Activity Detail Author Start: 07-09-2027 Screening for malign ant neoplasm of cervix [facility] Start: 06-19-2024 End: 06-19-2024 Patient encounter procedure 06/19/2024 6:00 PM EDT Office Visit [facility] [address] [place] [id number] Gautam Nolasco, CNM [address] [place] [address] [facility] Start: 02-07-2024 End: 02-07-2024 Patient encounter procedure 02/07/2024 1:30 PM EST Office Visit [facility] [address] [place] [id number] Heidi Bruce NP [address] [place] [address] Arrived [facility] Comment on above: Arrived Start: 10-31-2023 Influenza vaccination Influenza Vacc ine (#1) [facility] Start: 2014 Screening for malign ant neoplasm of cervix Pap Smear [facility] Immunizations Immunization Date Immunization Notes Care Provider Fa cility 11-19-2022 influenza, seasonal, injectable Generic Provider [facility] 11-19-2022 influenza virus vacc ine, unspecified formulation Generic Provider [facility] 04-06-2022 hepatitis B vaccine, adult dosage Generic Provider [facility] 04-06-2022 measles, mumps and r ubella virus vaccine Generic Provider [facility] 03-06-2022 measles, mumps and r ubella virus vaccine Generic Provider [facility] 12-05-2021 hepatitis B vaccine, adult dosage Generic Provider [facility] 12-05-2021 influenza, injectabl e, quadrivalent, preservative free Generic Provider [facility] 10-03-2021 hepatitis B vaccine, adult dosage Generic [facility] 10-03-2021 hepatitis B vaccine, pediatric or pediatric/adolescent dosage Generic Provider [facility] 09-24-2021 tuberculin skin test ; purified protein derivative solution, intradermal Generic Provider [facility] 09-17-2021 tuberculin skin test ; purified protein derivative solution, intradermal Generic [facility] 11-14-2020 influenza, injectabl e, quadrivalent, contains preservative Generic [facility] 08-06-2020 tuberculin skin test ; purified protein derivative solution, intradermal Generic Provider [facility] 07-30-2020 tuberculin skin test ; purified protein derivative solution, intradermal Generic [facility] 11-23-2019 influenza, injectabl e, quadrivalent, contains preservative Generic [facility] 06-15-2019 tetanus toxoid, redu don diphtheria toxoid, and acellular pertussis vaccine, adsorbed Generic [facility] 11-24-2018 seasonal influenza, intradermal, preservative free Generic [facility] 12-18-2017 seasonal influenza, intradermal, preservative free Generic [facility] 12-08-2017 Influenza, injectabl e, Madin Eunice Canine Kidney, preservative free, quadrivalent Generic [facility] 06-30-2016 influenza, injectabl e, quadrivalent, contains preservative [facility] 05-25-2016 hepatitis A vaccine, pediatric/adolescent dosage, 2 dose schedule [facility] 03-04-2015 influenza, injectabl e, quadrivalent, preservative free Generic [facility] 02-15-2015 influenza, injectabl e, quadrivalent, preservative free Generic [facility] 11-25-2012 hepatitis A vaccine, pediatric/adolescent dosage, 2 dose schedule [facility] 05-25-2012 hepatitis A vaccine, pediatric/adolescent dosage, 2 dose schedule [facility] 05-25-2012 meningococcal polysa ccharide (groups A, C, Y and W-135) diphtheria toxoid conjugate vaccine (MCV4P) Generic [facility] 05-25-2012 tetanus toxoid, redu don diphtheria toxoid, and acellular pertussis vaccine, adsorbed Generic [facility] 05-25-2012 varicella virus vaccine Generic [facility] 04-04-2012 HPV, unspecified formulation Generic Provider [facility] 02-02-2012 human papilloma viru s vaccine, quadrivalent Generic Provider [facility] 03-01-2010 human papilloma viru s vaccine, quadrivalent Generic Provider [facility] 09-05-2001 varicella virus vaccine Generic Prov ider [facility] 07-14-1999 Diphtheria, tetanus toxoids and acellular pertussis vaccine, and poliovirus vaccine, inactivated Generic Provider [facility] 07-14-1999 diphtheria, tetanus toxoids and acellular pertussis vaccine, unspecified formulation Generic Provider [facility] 07-14-1999 measles, mumps and r ubella virus vaccine Generic Provider [facility] 07-14-1999 trivalent poliovirus vaccine, live, oral Generic Provider [facility] 04-05-1995 DTaP-Haemophilus inf luenzae type b conjugate vaccine Generic Provider [facility] 04-05-1995 measles, mumps and r ubella virus vaccine Generic Provider [facility] 06-22-1994 diphtheria, tetanus toxoids and acellular pertussis vaccine, Haemophilus influenzae type b conjugate, and poliovirus vaccine, inactivated ([id number]) Generic Provider [facility] 06-22-1994 hepatitis B vaccine, adult dosage Generic Provider [facility] 04-06-1994 diphtheria, tetanus toxoids and acellular pertussis vaccine, Haemophilus influenzae type b conjugate, and poliovirus vaccine, inactivated ([id number]) Generic Provider [facility] 04-06-1994 hepatitis B vaccine, adult dosage Generic Provider [facility] 02-02-1994 diphtheria, tetanus toxoids and acellular pertussis vaccine, Haemophilus influenzae type b conjugate, and poliovirus vaccine, inactivated ([id number]) Generic Provider [facility] 02-02-1994 hepatitis B vaccine, adult dosage Generic Provider [facility] Payers Date Payer Category Payer Private Health Insurance [facility] [id number] 2023 Unknown [id number] 1993 Unknown [id number]. 2.593 1993 Unknown [id number] [id number]. 2.175 1993 Unknown [id number] [id number]. 2.175 1993 Unknown [id number] [id number]. 2.1259 1993 Unknown [id number] [id number]. 2.1259 1993 Unknown [id number] [id number]. 2.1259 1993 Unknown [id number] 2.16.840.1.345736.3.579. 2.1259 1993 Unknown [id number] 2.16.840.1.083004.3.579. 2.1259 1993 Unknown [id number] 2.16.840.1.110033.3.579. 2.1259 1993 Unknown [id number] 2.16.840.1.381209.3.579. 2.1259 1993 Unknown [id number] [id number]. 2.1259 1993 Unknown [id number] [id number]. 2.1259 1959 Unknown [id number] Unknown [id number] Social History Date Type Detail Facility Start: 08-24-2022 Tobacco smoking stat [facility] Never smoked tobacco [facility] Start: 08-24-2022 Tobacco use and exposure Smokeless t obacco non-user [facility] Start: 08-30-2023 End: 02-07-2024 Alcoholic beverage intake Ex-drinker (finding) [facility] Start: 05-12-2023 End: 08-30-2023 History of Social function [facility] Start: 05-12-2023 End: 08-30-2023 Tobacco use panel [facility] The thought of janet head myself has occurred to me Never [facility] Start: 08-27-2022 Alcohol Comment caffeine: 1-2 cups/d ay [facility] Start: 1995 Sex assigned at Female [facility] Start: 08-17-2022 Gender identity Identifies as female gender (finding) [facility] Start: 08-17-2022 Sexual orientation Heterosexual (fin ding) [facility] History of Present illness Narrative 02-07-2024 Heidi Bruce NP - 02/07/2024 1:30 PM EST Note Date & Type Note Facility 02-07-2024 History of Presen t illness Narrative Images from the original note were not included. Brionna Garcia is a 28 y.o. female presents with chief complaint of URI HPI: HPI Presents to the office with complaints of URI which started about 5 weeks. She had a nurse practitioner listen to her, thought she had walking pneumonia, called [facility] who sent her azithromycin which helped some. Continues to have linger coughing. Using robitussin OTC. SUBJECTIVE: MEDICATIONS: Current Outpatient Medications Medication Instructions estradiol (ESTRACE) 2 mg, 4 times daily estradiol (Vivelle-DOT) 0.1 MG/24HR APPLY 1 PATCH TOPICALLY TO THE SKIN EVERY 3 DAYS Neupogen 300 MCG/0.5ML ADMINISTER ONE SYRINGE UNDER THE SKIN A SINGLE DOSE DIRECTED. MV-Min-Fe Fum-FA-DHA ( 1 PO) Take by mouth progesterone 50 MG/ML injection ADMINISTER 2 ML IN THE MUSCLE DAILY REVIEW OF SYMPTOMS: Review of Systems OBJECTIVE: Visit Vitals BP 118/60 (BP Location: Left arm, Patient Position: Sitting, BP Cuff Size: Adult) Pulse 110 Temp 97.8 F (Tympanic) Ht 5' 7 Wt 145 lb SpO2 99% BMI 22.71 kg/m OB Status Unknown Smoking Status Never BSA 1.76 m Physical Exam Vitals reviewed. Constitutional: Appearance: Normal appearance. HENT: Head: Normocephalic and atraumatic. Right Ear: Tympanic membrane normal. Left Ear: Tympanic membrane normal. Nose: Mucosal edema, congestion and rhinorrhea present. Rhinorrhea is clear. Mouth/Throat: Mouth: Mucous membranes are moist. Pharynx: Postnasal drip present. Eyes: Pupils: Pupils are equal, round, and reactive to light. Cardiovascular: Rate and Rhythm: Normal rate and regular rhythm. Pulses: Normal pulses. Heart sounds: Normal heart sounds. Pulmonary: Effort: Pulmonary effort is normal. Breath sounds: Normal breath sounds. Musculoskeletal: Cervical back: Normal range of motion and neck supple. Skin: General: Skin is warm and dry. Capillary Refill: Capillary refill takes less than 2 seconds. Findings: No rash. Neurological: General: No focal deficit present. Mental Status: She is alert and oriented to person, place, and time. ASSESSMENT AND PLAN: Assessment/Plan Diagnoses and all orders for this visit: Viral URI with cough -Seems to be at the tail end of a viral illness, exam pretty benign, has some PND which could be contributing to cough. Can continue robitussin OTC prn. Discussed cough can linger for a few weeks after a viral illness. documented in this encounter [facility] History of Present illness Narrative 01-18-2024 Gautam Nolasco CNM - 01/18/2024 12:33 PM EST Note Date & Type Note Facility 01-18-2024 History of Presen t illness Narrative Patient surrogate, positive and not released from clinic yet. She is not feeling well and [employer] where she works heard crackles on left side. She wanted me to prescribe the med as she is and recommended zpak RX sent to pharmacy. documented in this encounter [facility] Clinical Note 02-24-2022 Note Date & Type [...] Placenta Anterior Grade II Weight (g) by Zbekklnanj60.4 % * These measurements result in an [...] signed by Marvin Hamilton on 02/24/2022 0956 [facility] Oven Operator Automatic Evaluation note Note Date & Type Note Facility Evaluation note Diagnosis Rhonchi- Primary Abnormal chest sounds documented in this encounter [facility] Evaluation note Note Date & Type Note Facility Evaluation note Diagnosis Viral URI with cough- Primary documented in this encounter [facility] Summary Purpose Family History No Family History Records FoundNo Family History Records FoundNo Family History Records FoundNo Family History Records Found Advance Directives No Advanced Directives Records FoundNo Advanced Directives Records FoundNo Advanced Directives Records FoundNo Advanced Directives Records Found Additional Source Comments INFORMATION SOURCE (unrecogn ized section and content) DATE CREATED AUTHOR 02/24/2022 [facility] dical Specialist DATE CREATED AUTHOR AUTHOR'S ORGANIZ ATION 03/03/2022 [facility] DATE CREATED AUTHOR AUTHOR'S ORGANIZ ATION 12/18/2023 [facility] DATE CREATED AUTHOR AUTHOR'S ORGANIZ ATION 02/10/2024 [facility] d[facility] Specialists [facility] Care Teams (unrecognized sec tion and content) Host/Hostess Restaurant Relationship Specialty Start Date End Date Laverne Aguilera MD [address] [place] [address] PCP - General Family Medicine 08/30/23 Host/Hostess Restaurant Relationship Specialty Start Date End Date Laverne Aguilera MD [address] [place] [address] PCP - General [facility] Medicine 08/30/23 [employer] Relationship Specialty Start Date End Date Laverne Aguilera MD [address] [place] [address] PCP - General [facility] 08/30/23 [employer] Relationship Specialty Start Date End Date Laverne Aguilera MD [address] [place] [address] PCP - General Family Medicine 08/30/23 Reason for Visit (unrecogniz ed section and content) Reason Comments URI FOR RECORDS PERTAINING TO PATIENTS WHO ARE [...] BE BASED ON THE PRIMARY CLINICAL RECORDS. [facility]. provides no warranty or guarantee of the accuracy or completeness of information in this document.
[2024-02-11 15:31] LABS: Basophils Absolute Auto 0.1 10^3/uL (0.0-0.1); Basophils Percent Auto 0.4 % (0.2-2.0); Eosinophils Absolute Auto 0.1 10^3/uL (0.0-0.7); Eosinophils Percent Auto 0.4 % (0.9-7.0); Hematocrit 38.8 % (36.0-48.0); Hemoglobin 13.2 g/dL (12.0-16.0); Immature Granulocytes Abs Auto 0.11 10^3/uL (0.00-0.03); Immature Granulocytes Pct Auto 0.5 % (0.0-0.5); Lymphocytes Absolute Auto 2.3 10^3/uL (1.2-3.8); Lymphocytes Percent Auto 10.2 % (20.5-60.0); Mean Corpuscular Hemoglobin 30.4 pg (26.7-34.0); Mean Corpuscular Volume 89.4 fL (81.0-99.0); Monocytes Absolute Auto 0.7 10^3/uL (0.3-0.8); Monocytes Percent Auto 2.9 % (1.7-12.0); Neutrophils Absolute Auto 19.4 10^3/uL (1.4-6.5); Neutrophils Percent Auto 85.6 % (43.0-75.0); Platelet Count 423 10^3/uL (150-450); Red Blood Count 4.34 10^6/uL (4.20-5.40); White Blood Count 22.6 10^3/uL (4.0-11.0)
[2024-02-11 16:08] LABS: HCG Quantitative 94664 mIU/mL
[2024-02-11 17:15] LABS: Bilirubin Urine NEGATIVE (NEGATIVE); Blood Urine LARGE (NEGATIVE); Clarity Urine SL CLOUDY (CLEAR); Glucose Urine UA NEGATIVE (NEGATIVE); Ketones Urine NEGATIVE (NEGATIVE); Leukocyte Esterase Urine NEGATIVE (NEGATIVE); Nitrite Urine NEGATIVE (NEGATIVE); Protein Urine >=300 mg/dL (NEG/TRACE); Specific Gravity Urine 1.025 (1.005-1.025); Urobilinogen Urine 0.2 EU/dL (0.2-1.0)
[2024-02-11 17:18] LABS: Color Urine RED (YELLOW); Urine Microscopic Indicated YES
[2024-02-11 17:27] LABS: Bacteria Urine SMALL #/HPF (NONE SEEN); Cast Seen? NONE SEEN #/LPF (NONE SEEN); Crystals Seen? None Seen #/HPF (None Seen); Mucus Urine TRACE (NONE SEEN); RBC Urine >100 #/HPF (0-2); Squamous Epithelial Cell Urine FEW #/LPF (NONE/RARE); Urine Culture Indicated YES
== END 2024-02-11 17:46 | disposition home or self-care (01) ==
PROVIDERS: Physician Assistant; Emergency Provider Emergency Medicine; PCP Family Medicine
DX: O20.8 Other hemorrhage in early pregnancy (principal); Z3A.11 11 weeks gestation of pregnancy; Z87.01 Personal history of pneumonia (recurrent); Z33.3 Pregnant state, gestational carrier
CPT/HCPCS: 36415; 76817; 81001; 84702; 85025; 87086; 99284

== ENCOUNTER 2024-03-02 07:58 | Outpatient (OUT) | payer OTHER, SELFPAY ==
--- NOTE | 2024-03-02 08:01 | US_ITS ---
[address] [address] Patient Name: KRISTEN GARCIA MRN: [id number] date: 1995 Sex: F Assigned Patient Location: US Current Patient Location: Accession/Order Number: [id number] Exam Date: 03/02/2024 08:02 Report Date: 03/02/2024 08:34 At the request of: GAUTAM PATEL Procedure: US OB placenta EXAM: US OB placenta HISTORY: Subchronic Hematoma In Second Trimester COMPARISON: All. TECHNIQUE: Transabdominal FINDINGS: A large complex area of hypoechogenicity identified adjacent to the placenta measuring 7.6 x 6.5 x 1.9 cm. Viable monroy intrauterine gestation position: Variable Placenta: Posterior, grade 0 Heart rate: 150 beats minute Clinical age: 40 weeks 0 days Clinical CHITO: 08/31/2024 Findings were discussed with the ordering provider, Kristen Garcia by the technologistOlivia at the time of exam US/US OB placenta IMPRESSION: Large subchorionic versus retroplacental hemorrhage measuring 7.6 cm Electronically authenticated by: ESPERANZA MORALES Date: 03/02/2024 08:34
--- OUTSIDE RECORDS SUMMARY | 2024-03-02 08:15 | XMS_ITS | CCD ---
Author Organization [facility] Care Team Providers Care Senior Scheduler Name Role Phone MARBELLA, DR RINCON Admitting [...] Unavailable FLORO, GAUTAM Harrison Attending Unavailable HEIDI SMITH Attending Unavailable HEIDI SMITH Attending Unavailable Medications Current Medications Medication Drug Class(es) Dates Sig (Normalized) Sig (Original) 84 hr estradiol 0.17126 mg/hr transdermal system (4 sources) Estrogen Start: [...] / ethinyl estradiol 0.03 mg oral tablet (6 sources) Progestin, Estrogen Start: 08-23-2023 End: 02-07-2024 Isibloom 0.15-30 MG-MCG tablet 08/23/2023 02/07/2024 Discontinued nitrofurantoin, macrocrystals 25 mg / nitrofurantoin, monohydrate 75 mg oral capsule (6 sources) Nitrofuran Antibacterial Start: 08-29-2023 End: 02-07-2024 nitrofurantoin, macrocrystal-monoh ydrate, (Macrobid) 100 MG capsule 08/29/2023 02/07/2024 Discontinued Problems Active Problems Problem Classification Problem Date Documented Da te Episodic/Chronic Anxiety disorders (18 sources) Anxiety; Translations: [Anxiety disorder, unspecified] Onset: 12-23-2022 12-23-2022 Chronic Asthma (6 sources) Exercise-induced asthma; Translations: [Exercise induced bronchospasm] Onset: 12-23-2022 12-23-2022 Chronic Headache; including migraine (6 sources) Chronic post-traumatic headache; Translations: [Chronic post-traumatic headache, not intractable] Onset: 12-23-2022 12-23-2022 Chronic Joint disorders and dislocations; trauma-related (6 sources) Derangement of left knee; Translations: [Unspecified [...] Episodic/Chronic Conditions associated with dizziness or vertigo (6 sources) Dizziness; Translations: [Dizziness and giddiness] Onset: 12-23-2022 12-23-2022 Episodic Fracture of lower limb (6 sources) Stress fracture of tibia; Translations: [Stress fracture, left tibia, subsequent encounter for fracture with routine healing] Onset: 12-23-2022 12-23-2022 Episodic Headache; including migraine (6 sources) Chronic daily headache; Translations: [Chronic daily headache] Onset: 12-23-2022 12-23-2022 Episodic Immunizations and screening for infectious disease (4 sources) Contact with and (suspected) exposure to other viral communicable diseases; Translations: [CONTCT EXPS OTH VIRL COMMUNICABL DZ] Onset: 02-28-2020 Episodic Intracranial injury (6 sources) Concussion injury of body structure; Translations: [Concussion] Onset: 12-23-2022 12-23-2022 Episodic Other complications of ; puerperium affecting management of mother (6 sources) hemorrhage; Translations: [Other immediate hemorrhage] Onset: 03-06-2022 12-23-2022 Episodic Other complications of (6 sources) Placenta circumvallata; Translations: [Circumvallate placenta, unspecified trimester] Onset: 05-28-2019 12-23-2022 Episodic Other ear and sense organ disorders (6 sources) Tinnitus of right ear; Translations: [Tinnitus, right ear] Onset: 12-23-2022 12-23-2022 Episodic Other non-traumatic joint disorders (6 sources) Pain in left knee; Translations: [Pain in joint, lower leg] Onset: 12-23-2022 12-23-2022 Episodic Other and delivery including normal (12 sources) Patient encounter status; Translations: [Encounter for supervision of normal , unspecified, unspecified trimester] Onset: 04-03-2019 12-23-2022 Episodic Urinary tract infections (6 sources) Lower urinary tract infectious disease; Translations: [Urinary tract infection, site not specified] Onset: 12-23-2022 12-23-2022 Episodic Results Test Name Value Interpretation Reference Range Facil ity ALL PROGESTERONEon MHPT PROGESTERONE 47.9 ng/mL [facility] Comment on above: Female: Follicular phase <0.19 ng/mL Ovulation phase 0.06-4.14 ng/mL Luteal phase 4.11-14.5 ng/mL Postmenopausal <0.13 ng/mL Estradiolon 12-16-2023 Estradiol 459.0 pg/mL Normal [facility] Comment on above: Result Comment: FEMALES: Normally menstruating Luteal phase 60-232 Follicular phase 31-90 Midcycle phase 60-533 Postmenopausal (untreated) <138 Fulvestrant treatment will show an increased estradiol concentration with this methodology. Alternate methodologies are available upon request. Performed By: #### E 2, PROG #### [employer] [address] [place] [address] Sales Agent Financial Report Service: Sameer May MD MHPT ESTRADIOLon 12-16-2023 MHPT ESTRADIOL 459 pg/mL [facility] Comment on above: FEMALES: Normally menstruating Luteal phase 60-232 Follicular phase 31-90 Midcycle phase 60-533 Postmenopausal (untreated) <138 Fulvestrant treatment will show an increased estradiol concentration with this methodology. Alternate methodologies are available upon request. No Panel Informationon 12-15 Original Ordering Provider: KEMAR DE SANTIAGO MD [facility] Progesteroneon 12-16-2023 Progesterone 47.90 ng/mL Normal [facility] Comment on above: Result Comment: Female: Follicular phase <0.19 ng/mL Ovulation phase 0.06-4.14 ng/mL Luteal phase 4.11-14.5 ng/mL Postmenopausal <0.13 ng/mL Performed By: #### E 2, PROG #### [employer] [address] [place] [address] Sales Agent Financial Report Service: Sameer May MD ALL HCG, QUANTITATIVEon MHPT HCG, QUANT <0.2 [facility] Comment on above: Non-preg premeno <=5 Postmeno <=8 Male <=3 If HCG results do not concur with clinical observations, additional testing to confirm results is recommended. Original Ordering Provider: KEMAR DE SANTIAGO MD [facility] HCG, Quanton 11-02-2023 HCG, Quant <0.2 Normal 0-7 [facility] Comment on above: Result Comment: Non-preg premeno <=5 Postmeno <=8 Male <=3 If HCG results do not concur with clinical observations, additional testing to confirm results is recommended. Performed By: #### B HCG #### [employer] [address] [place] [address] Sales Agent Financial Report Service: Sameer May MD US OB Growthon 02-12-2022 [...] by Marvin Hamilton on 02/12/[address] [facility] OB Growthon 12-22-2021 US OB Growth FINDINGS: [...] by Marvin Hamilton on 12/23/[address] [facility] OB 2nd/3rd Trimesteron OB 2nd/3rd Trimester FINDINGS: A single, live [...] by Marvin Hamilton on 10/14/2021 0931 Normal [facility] Table Tender Sludge Vital Signs Date Time Vital Sign Value Performing Clinician Garrick watters 02-07-2024 13:31-0500 Body height 170.2 cm Heidi Smith [employer] Work Phone: [facility] 02-07-2024 13:31-0500 Body mass index (BMI) [Ratio] 22.71 kg/m2 Heidi Smith [employer] Work Phone: [facility] 02-07-2024 13:31-0500 Body temperature 97.81 [degF] Heidi Smith [employer] Work Phone: [facility] 02-07-2024 13:31-0500 Body weight 65.77 kg Heidi Smith [employer] Work Phone: [facility] 02-07-2024 13:31-0500 Diastolic blood pressure 60 mm[Hg] Heidi Smith [employer] Work Phone: [facility] 02-07-2024 13:31-0500 Heart rate 110 /min Heidi Smith [employer] Work Phone: [facility] 02-07-2024 13:31-0500 SaO2% (BldA) [Mass fraction] 99 % Heidi Smith [employer] Work Phone: [facility] 02-07-2024 13:31-0500 Systolic blood pressure 118 mm[Hg] Heidi Smith [employer] Work Phone: [facility] Encounters Encounter Date Encounter Type Care Provider Facility Start: 02-07-2024 End: 02-07-2024 Bamboo flowsheet Heidi Smith [employer] Work Phone: [facility] Start: 02-07-2024 End: 02-07-2024 Bamboo flowsheet Heidi Smith [employer] Work Phone: [facility] Start: 02-07-2024 End: 02-07-2024 Office outpatient visit 15 minutes Heidi Smith [employer] Work Phone: [facility] Comment on above: Viral URI with cough (Primary Dx) Start: 02-07-2024 End: 02-07-2024 ambulatory HEIDI SMITH Not Available Start: 01-18-2024 End: 01-18-2024 Orders Only Gautam Harrison Sandeerodney CNM Work Phone: [facility] Comment on above: Rhonchi (Primary Dx) Start: 12-16-2023 End: 12-16-2023 [facility] Result Encounter Generic External Data Provider [facility] Unsolicited Start: 12-16-2023 End: 12-16-2023 [facility] Result Encounter Generic External Data Provider [facility] Unsolicited Start: 12-16-2023 End: 12-16-2023 [facility] Start: 11-02-2023 End: 11-02-2023 [facility] Start: 11-02-2023 End: 11-02-2023 Encounter for preprocedural laboratory examination KEMAR DE SANTIAGO [facility] Start: 11-02-2023 End: 11-02-2023 [facility] Result Encounter Generic External Data Provider [facility] Unsolicited Start: 11-02-2023 End: 11-02-2023 [facility] Result Encounter Generic External Data Provider [facility] Unsolicited Start: 08-30-2023 End: 08-30-2023 ambulatory HEIDI DUTTONVaibhavJOSUE Not Available Start: 06-23-2023 End: 06-23-2023 ambulatory [...] Available Start: 02-15-2023 End: 02-15-2023 ambulatory GAUTAM L FLORO Not Available Start: 02-28-2020 End: 02-28-[address] SERGEY TYSON Facility: Procedures Date Procedure Procedure Detail Performing Clinician Start: 12-16-2023 ALL PROGESTERONE Generi c External Data Provider Start: 12-16-2023 MHPT ESTRADIOL Generic External Data Provider Start: 11-02-2023 ALL HCG, QUANTITATIVE G eneric External Data Provider Plan of Treatment Date Care Activity Detail Author Start: 07-09-2027 Screening for malign ant neoplasm of cervix [facility] Start: 06-19-2024 End: 06-19-2024 Patient encounter procedure 06/19/2024 6:00 PM EDT Office Visit [facility] [address] [place] [id number] Gaurav Gautam L, CNM [address] [place] [address] [facility] Start: 02-07-2024 End: 02-07-2024 Patient encounter procedure 02/07/2024 1:30 PM EST Office Visit [facility] [address] [place] [id number] Heidi Smith NP [address] [place] [address] Arrived [facility] Comment on above: Arrived Start: 10-31-2023 Influenza vaccination Influenza Vacc ine (#1) [facility] Start: 2014 Screening for malign ant neoplasm of cervix Pap Smear [facility] Immunizations Immunization Date Immunization Notes Care Provider Katlin mercedes 11-19-2022 influenza, seasonal, injectable Generic Provider [facility] 11-19-2022 influenza virus vacc ine, unspecified formulation Generic Provider [facility] 04-06-2022 hepatitis B vaccine, adult dosage Generic Provider [facility] 04-06-2022 measles, mumps and r ubella virus vaccine Generic Provider [facility] 03-06-2022 measles, mumps and r ubella virus vaccine Generic Provider [facility] 12-05-2021 hepatitis B vaccine, adult dosage Generic Provider [facility] 12-05-2021 influenza, injectabl e, quadrivalent, preservative free Generic Provider [facility] 10-03-2021 hepatitis B vaccine, adult dosage Generic Provider [facility] 10-03-2021 hepatitis B vaccine, pediatric or pediatric/adolescent dosage Generic Provider [facility] 09-24-2021 tuberculin skin test ; purified protein derivative solution, intradermal Generic Provider [facility] 09-17-2021 tuberculin skin test ; purified protein derivative solution, intradermal Generic Provider [facility] 11-14-2020 influenza, injectabl e, quadrivalent, contains preservative Generic Provider [facility] 08-06-2020 tuberculin skin test ; purified protein derivative solution, intradermal Generic Provider [facility] 07-30-2020 tuberculin skin test ; purified protein derivative solution, intradermal Generic Provider [facility] 11-23-2019 influenza, injectabl e, quadrivalent, contains preservative Generic [facility] 06-15-2019 tetanus toxoid, redu don diphtheria toxoid, and acellular pertussis vaccine, adsorbed Generic Provider [facility] 11-24-2018 seasonal influenza, intradermal, preservative free Generic Provider [facility] 12-18-2017 seasonal influenza, intradermal, preservative free Generic Provider [facility] 12-08-2017 Influenza, injectabl e, Madin Eunice Canine Kidney, preservative free, quadrivalent Generic Provider [facility] 06-30-2016 influenza, injectabl e, quadrivalent, contains preservative Generic [facility] 05-25-2016 hepatitis A vaccine, pediatric/adolescent dosage, 2 dose schedule Generic Provider [facility] 03-04-2015 influenza, injectabl e, quadrivalent, preservative free Generic Provider [facility] 02-15-2015 influenza, injectabl e, quadrivalent, preservative free Generic Provider [facility] 11-25-2012 hepatitis A vaccine, pediatric/adolescent dosage, 2 dose schedule Generic Provider [facility] 05-25-2012 hepatitis A vaccine, pediatric/adolescent dosage, 2 dose schedule Generic Provider [facility] 05-25-2012 meningococcal polysa ccharide (groups A, C, Y and W-135) diphtheria toxoid conjugate vaccine (MCV4P) Generic Provider [facility] 05-25-2012 tetanus toxoid, redu don diphtheria toxoid, and acellular pertussis vaccine, adsorbed Generic Provider [facility] 05-25-2012 varicella virus vaccine Generic Prov ider [facility] 04-04-2012 HPV, unspecified formulation Generic Provider [facility] 02-02-2012 human papilloma viru s vaccine, quadrivalent Generic Provider [facility] 03-01-2010 human papilloma viru s vaccine, quadrivalent Generic Provider [facility] 09-05-2001 varicella virus vaccine Generic [facility] ider [facility] 07-14-1999 Diphtheria, tetanus toxoids and acellular pertussis vaccine, and poliovirus vaccine, inactivated Generic Provider [facility] 07-14-1999 diphtheria, tetanus toxoids and acellular pertussis vaccine, unspecified formulation Generic Provider [facility] 07-14-1999 measles, mumps and r ubella virus vaccine Generic Provider [facility] 07-14-1999 trivalent poliovirus vaccine, live, oral Generic Provider [facility] 04-05-1995 DTaP-Haemophilus inf luenzae type b conjugate vaccine Generic Provider [facility] 04-05-1995 measles, mumps and r ubella virus vaccine Generic Provider [facility] 06-22-1994 diphtheria, tetanus toxoids and acellular pertussis vaccine, Haemophilus influenzae type b conjugate, and poliovirus vaccine, inactivated ([id number]) Generic Provider [facility] 06-22-1994 hepatitis B vaccine, adult dosage Generic Provider [facility] 04-06-1994 diphtheria, tetanus toxoids and acellular pertussis vaccine, Haemophilus influenzae type b conjugate, and poliovirus vaccine, inactivated ([id number]) [facility] 04-06-1994 hepatitis B vaccine, adult dosage Generic Provider [facility] 02-02-1994 diphtheria, tetanus toxoids and acellular pertussis vaccine, Haemophilus influenzae type b conjugate, and poliovirus vaccine, inactivated ([id number]) Generic Provider [facility] 02-02-1994 hepatitis B vaccine, adult dosage Generic Provider [facility] Payers Date Payer Category Payer Private Health Insurance [id number] 2023 Unknown [id number] 1993 Unknown [id number] 2.16.84 [id number] 1993 Unknown [id number] 2.16. [id number] 1993 Unknown [id number] 2.16. [id number] 1993 Unknown [id number] 2.16.84 [id number] 1993 Unknown [id number] 2.16.84 [id number] 1993 Unknown [id number] 2.16.84 [id number] 1993 Unknown [id number] 2.16.84 [id number] 1993 Unknown [id number] 2.16.84 [id number] 1993 Unknown [id number] 2.16.84 [id number] 1993 Unknown [id number] 2.16.84 0.1.334240.3.579.2.1259 1993 Unknown [id number] 2.16.840 .[id number] 1993 Unknown [id number] 2.16.840 .[id number] 1959 Unknown [id number] Unknown [id number] Social History Date Type Detail Facility Start: 08-24-2022 Tobacco smoking stat NHIS Never smoked tobacco [facility] Start: 08-24-2022 Tobacco use and exposure Smokeless t obacco non-user [facility] Start: 08-30-2023 End: 02-07-2024 Alcoholic beverage intake Ex-drinker (finding) [facility] Start: 05-12-2023 End: 08-30-2023 History of Social function [facility] Start: 05-12-2023 End: 08-30-2023 Tobacco use panel [facility] The thought of harmi ng myself has occurred to me Never [facility] Start: 08-27-2022 Alcohol Comment caffeine: 1-2 cups/d ay [facility] Start: 1995 Sex assigned at Female [facility] Start: 08-17-2022 Gender identity Identifies as female gender (finding) [facility] Start: 08-17-2022 Sexual orientation Heterosexual (fin ding) [facility] History of Present illness Narrative 02-07-2024 Heidi Smith NP - 02/07/2024 1:30 PM EST Note [...] a viral illness. documented in this encounter [facility] History of Present illness Narrative 01-18-2024 Gautam Nolasco CNM - 01/18/2024 12:33 PM EST Note Date & Type Note Facility 01-18-2024 History of Presen t illness Narrative Patient surrogate, positive and not released from clinic yet. She is not feeling well and [employer] where she works heard crackles on left side. She wanted me to prescribe the med as she is and recommended zpak RX sent to pharmacy. documented in this encounter [facility] Clinical Note 02-24-2022 Note Date & Type [...] Placenta Anterior Grade II Weight (g) by Gdazbgsscu42.4 % * These measurements result in an [...] signed by Marvin Hamilton on 02/24/2022 0956 [facility] Table Tender Sludge Evaluation note Note Date & Type Note [...] section and content) DATE CREATED AUTHOR 02/24/2022 [facility] dical Specialist DATE CREATED AUTHOR AUTHOR'S ORGANIZ ATION 03/03/2022 [facility] DATE CREATED AUTHOR AUTHOR'S ORGANIZ ATION 12/18/2023 [facility] DATE CREATED AUTHOR AUTHOR'S ORGANIZ ATION 02/10/2024 [facility] dical Specialists [facility] Care Teams (unrecognized sec tion and content) Senior Scheduler Relationship Specialty Start Date End Date Laverne Aguilera MD [address] [place] [address] PCP - General Family Medicine 08/30/23 Senior Scheduler Relationship Specialty Start Date End Date Laverne Aguilera MD [address] [facility] [place] [address] PCP - General Family Medicine 08/30/23 Senior Scheduler Relationship Specialty Start Date End Date Laverne Aguilera MD [address] [facility] [place] [address] PCP - General Family Medicine 08/30/23 Senior Scheduler Relationship Specialty Start Date End Date Laverne Aguilera MD [address] [facility] [place] [address] PCP - General Family Medicine 08/30/23 Senior Scheduler Relationship Specialty Start Date End Date Laverne Aguilera MD [address] [facility] [place] [address] PCP - General Family Medicine 08/30/23 Reason [...] BE BASED ON THE PRIMARY CLINICAL RECORDS. [facility] [employer] [facility]. provides no warranty or guarantee of the accuracy or completeness of information in this document.
== END 2024-03-02 07:59 | disposition home or self-care (01) ==
LOC: US 07:58
PROVIDERS: PCP Family Medicine; Visit Provider Midwife
DX: O41.8X31 Other specified disorders of amniotic fluid and membranes, third trimester, fetus 1 (principal); O46.8X3 Other antepartum hemorrhage, third trimester; Z3A.40 40 weeks gestation of pregnancy
CPT/HCPCS: 76815

== ENCOUNTER 2024-03-14 15:40 | Outpatient (OUT) | payer OTHER, SELFPAY ==
--- NOTE | 2024-03-14 15:43 | US_ITS ---
[place] [id number] Patient Name: KRISTEN PRIEST MRN: [id number] date: 1995 Sex: F Assigned Patient Location: US Current Patient Location: US Accession/Order Number: [id number] Exam Date: 03/14/2024 16:06 Report Date: 03/14/2024 17:13 At the request of: GAUTAM PATEL Procedure: US OB placenta EXAMINATION: US OB cervical length, US OB placenta HISTORY: SUBCHORIONIC HEMATOM O41.8X21 COMPARISON: Ultrasound OB placenta 03/02/2024 FINDINGS: PLACENTA: Grade 1, fundal in location, with lower margin 3.8 cm from os. Hypoechoic 3.3 x 1.7 x 1.2 cm area within the placenta; possible venous castillo. Heterogeneous hypoechoic fluid collection within posterior uterus adjacent the placenta, 8.1 x 3.6 x 6.2 cm; no internal blood flow. CERVIX LENGTH: 4.4 cm in length; closed. HEART RATE: 154 bpm OTHER: None. US/US OB placenta IMPRESSION: 1. Single live intrauterine . 2. Grossly stable large heterogeneous fluid collections suspected represent a subchorionic hematoma. No evidence of active bleeding or significant change. Electronically authenticated by: GWENDOLYN LUNA Date: 03/14/2024 17:13
--- OUTSIDE RECORDS SUMMARY | 2024-03-14 15:43 | XMS_ITS | CCD ---
Author Organization [facility] Care Team Providers Care 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 Name Role Phone MARBELLA, DR RINCON Admitting Unavailable MARBELLA, DR RINCON Attending Unavailable MARBELLA, DR RINCON Consulting Unavailable MARBELLA, DR RINCON Primary Care Unavailable Laverne Aguilera MD Primary Care Provider LAVERNE NOONAN Primary Care Un available KEMAR CONTRERAS Referring Unavailab KEMAR Lockwood Referring Unavailab LAVERNE Love Primary Care Un available Leslie Bahena DO Primary Care Provider GAUTAM NOLASCO Attending Unavailable GAUTAM NOLASCO Attending Unavailable GAUTAM NOLASCO Attending Unavailable GAUTAM NOLASCO Attending Unavailable HEIDI SMITH Attending Unavailable HEIDI SMITH Attending Unavailable GAUTAM NOLASCO Attending Unavailable Medications Current Medications Medication Drug Class(es) Dates Sig (Normalized) Sig (Original) 84 hr estradiol 0.77477 mg/hr transdermal system (4 sources) Estrogen Start: 02-02-2024 estradiol (Vivelle-DOT) 0.1 MG/24HR APPLY 1 PATCH TOPICALLY TO THE SKIN EVERY 3 DAYS 02/02/2024 Active Start: 01-10-2024 estradiol (Est race) 2 MG tablet Take 2 mg by mouth in the morning and 2 mg at noon and 2 mg in the evening and 2 mg before bedtime. 01/10/2024 Active ferrous sulfate 325 mg oral tablet (3 sources) Start: 02-26-2022 take 1 tablet by mouth in the morning, then take 1 tablet by mouth at mealtime ferrous sulfate 325 (65 FE) mg tablet Take 1 tablet (325 mg total) by mouth in the morning and 1 tablet (325 mg total) in the evening. Take with meals. 60 tablet 4 02/26/2022 Active 0.5 ml filgrastim 0.6 mg/ml prefilled syringe (2 sources) Leukocyte Growth Factor Start: 01-26-2024 Neupogen 300 MCG/0.5ML ADMINISTER ONE SYRINGE UNDER THE SKIN A SINGLE DOSE DIRECTED. 01/26/2024 Active ibuprofen 800 mg oral tablet (3 sources) Nonsteroidal Anti-inflammatory Drug Start: 09-05-2019 take 1 tablet by mouth every eight hours as needed ibuprofen (ADVIL,MOTRIN) 800 mg tablet Indications: pain Take 1 tablet (800 mg total) by mouth every 8 (eight) hours as needed (cramping). 30 tablet 09/05/2019 Active prenat.vits,reema,min -iron-folic ( VITAMIN) tablet (3 sources) take 1 tablet by mouth once daily prenat.vits,reema,mi t-thwh-cptzx ( VITAMIN) tablet Take 1 tablet by mouth daily. Active MV-Min-Fe Fum-FA-DHA ( 1 PO) (3 sources) MV-Min- Fe Fum-FA-DHA ( 1 PO) Take by mouth Active progesterone 50 mg/ml injectable solution (2 sources) Progesterone Start: 12-27-2023 progesterone 50 MG/ML injection ADMINISTER 2 ML [...] Date Documented Da te Episodic/Chronic Anxiety disorders (20 sources) Anxiety; Translations: [Anxiety disorder, unspecified] Onset: 12-23-2022 12-23-2022 Chronic Asthma (7 sources) Exercise-induced asthma; Translations: [Exercise induced bronchospasm] Onset: 12-23-2022 12-23-2022 Chronic Headache; including migraine (7 sources) Chronic post-traumatic headache; Translations: [Chronic post-traumatic headache, not intractable] Onset: 12-23-2022 12-23-2022 Chronic Joint disorders and dislocations; trauma-related (7 sources) Derangement of left knee; Translations: [Unspecified [...] Episodic/Chronic Conditions associated with dizziness or vertigo (7 sources) Dizziness; Translations: [Dizziness and giddiness] Onset: 12-23-2022 12-23-2022 Episodic Fracture of lower limb (7 sources) Stress fracture of tibia; Translations: [Stress fracture, left tibia, subsequent encounter for fracture with routine healing] Onset: 12-23-2022 12-23-2022 Episodic Headache; including migraine (7 sources) Chronic daily headache; Translations: [Chronic daily headache] Onset: 12-23-2022 12-23-2022 Episodic Immunizations and screening for infectious disease (4 sources) Contact with and (suspected) exposure to other viral communicable diseases; Translations: [CONTCT EXPS OTH VIRL COMMUNICABL DZ] Onset: 02-28-2020 Episodic Intracranial injury (7 sources) Concussion injury of body structure; Translations: [Concussion] Onset: 12-23-2022 12-23-2022 Episodic Other complications of ; puerperium affecting management of mother (10 sources) hemorrhage; Translations: [Other immediate hemorrhage] Onset: 03-06-2022 12-23-2022 Episodic Other complications of (10 sources) Placenta circumvallata; Translations: [Circumvallate placenta, unspecified trimester] Onset: 05-28-2019 12-23-2022 Episodic Other complications of (3 sources) Missed miscarriage; Translations: [Missed ] Onset: 10-07-2018 Resolved: 04-03-2019 04-03-2019 Episodic Other ear and sense organ disorders (7 sources) Tinnitus of right ear; Translations: [Tinnitus, right ear] Onset: 12-23-2022 12-23-2022 Episodic Other non-traumatic joint disorders (7 sources) Pain in left knee; Translations: [Pain in joint, lower leg] Onset: 12-23-2022 12-23-2022 Episodic Other and delivery including normal (20 sources) Patient encounter status; Translations: [Encounter for supervision of normal , unspecified, unspecified trimester] Onset: 04-03-2019 12-23-2022 Episodic Residual codes; unclassified (3 sources) Gestation period, 39 weeks; Translations: [39 weeks gestation of ] Onset: 09-04-2019 09-04-2019 Episodic Urinary tract infections (7 sources) Lower urinary tract infectious disease; Translations: [Urinary tract infection, site not specified] Onset: 12-23-2022 12-23-2022 Episodic Results Test Name Value Interpretation Reference Range Facil ity ALL PROGESTERONEon MHPT PROGESTERONE 47.9 ng/mL [facility] Comment on above: Female: Follicular phase <0.19 ng/mL Ovulation phase 0.06-4.14 ng/mL Luteal phase 4.11-14.5 ng/mL Postmenopausal <0.13 ng/mL Estradiolon 12-16-2023 Estradiol 459.0 pg/mL Normal [facility] Comment on above: Result Comment: FEMALES: Normally menstruating Luteal phase 60-232 Follicular phase 31-90 Midcycle phase 60-533 Postmenopausal (untreated) <138 Fulvestrant treatment will show an increased estradiol concentration with this methodology. Alternate methodologies are available upon request. Performed By: #### E 2, PROG #### [facility] [address] [place] [address] [id number] Internet Technology Manager: Sameer May MD MHPT ESTRADIOLon 12-16-2023 MHPT ESTRADIOL 459 pg/mL [facility] Comment on above: FEMALES: Normally menstruating Luteal phase 60-232 Follicular phase 31-90 Midcycle phase 60-533 Postmenopausal (untreated) <138 Fulvestrant treatment will show an increased estradiol concentration with this methodology. Alternate methodologies are available upon request. No Panel Informationon 12-15 Original Ordering Provider: KEMAR CONTRERAS [facility] Progesteroneon 12-16-2023 Progesterone 47.90 ng/mL Normal [facility] Comment on above: Result Comment: Female: Follicular phase <0.19 ng/mL Ovulation phase 0.06-4.14 ng/mL Luteal phase 4.11-14.5 ng/mL Postmenopausal <0.13 ng/mL Performed By: #### E 2, PROG #### [facility] [address] [place] [address] [id number] Internet Technology Manager: Sameer May MD ALL HCG, QUANTITATIVEon MHPT HCG, QUANT <0.2 [facility] Comment on above: Non-preg premeno <=5 Postmeno <=8 Male <=3 If HCG results do not concur with clinical observations, additional testing to confirm results is recommended. Original Ordering Provider: KEMAR CONTRERAS CLINISYNC [facility] HCG, Quanton 11-02-2023 HCG, Quant <0.2 Normal 0-7 [facility] Comment on above: Result Comment: Non-preg premeno <=5 Postmeno <=8 Male <=3 If HCG results do not concur with clinical observations, additional testing to confirm results is recommended. Performed By: #### B HCG #### [facility] [address] [place] [address] Internet Technology Manager: Sameer May MD Type and screenOrdered By: Andrews Eduardo on 09-03-2022 Abo/Rh(D) Positive [facility] US OB [facility] 02-12-2022 US OB Growth [...] by Marvin Hamilton on 02/12/2022 0957 Normal [facility] OB [facility] 12-22-2021 US OB Growth FINDINGS: [...] by Marvin Hamilton on 12/23/2021 0940 Normal [facility] US OB 2nd/3rd Trimesteron OB 2nd/3rd Trimester FINDINGS: [...] by Marvin Hamilton on 10/14/2021 0931 Normal [facility] [employer] [employer] [facility] [employer] Supervisor Vital Signs Date Time Vital Sign Value Performing Clinician Garrick watters 02-07-2024 13:31-0500 Body height 170.2 cm Heidi Smith LENDING MANAGER Work Phone: [facility] 02-07-2024 13:31-0500 Body mass index (BMI) [Ratio] 22.71 kg/m2 Heidi Smith LENDING MANAGER Work Phone: [facility] 02-07-2024 13:31-0500 Body temperature 97.81 [degF] Heidi Smith LENDING MANAGER Work Phone: [facility] 02-07-2024 13:31-0500 Body weight 65.77 kg Heidi Smith LENDING MANAGER Work Phone: [facility] 02-07-2024 13:31-0500 Diastolic blood pressure 60 mm[Hg] Heidi Smith LENDING MANAGER Work Phone: [facility] 02-07-2024 13:31-0500 Heart rate 110 /min Heidi Smith LENDING MANAGER Work Phone: [facility] 02-07-2024 13:31-0500 SaO2% (BldA) [Mass fraction] 99 % Heidi Smith LENDING MANAGER Work Phone: [facility] 02-07-2024 13:31-0500 Systolic blood pressure 118 mm[Hg] Heidi Smith LENDING MANAGER Work Phone: [facility] Encounters Encounter Date Encounter Type Care Provider Facility Start: 03-07-2024 End: 03-07-2024 ambulatory GAUTAM L FLORO Not Available Start: 03-07-2024 End: 03-07-2024 Bamboo flowsheet Gatuam L Floro CNM Work Phone: [facility] Start: 03-07-2024 End: 03-07-2024 Bamboo flowsheet Gautam L Floro CNM Work Phone: [facility] Start: 03-06-2024 End: 03-06-2024 Chart abstracting Lara Hinojosa MD Work Phone: [facility] Start: 03-06-2024 End: 03-06-2024 Telephone encounter Alondra Eduadro RN [facility] Start: 03-03-2024 End: 03-03-2024 Telephone encounter Yun Hathaway RN [facility] at [facility] Start: 02-07-2024 End: 02-07-2024 Bamboo flowsheet Heidi Smith LENDING MANAGER Work Phone: [facility] Start: 02-07-2024 End: 02-07-2024 Bamboo flowsheet Heidi Smith LENDING MANAGER Work Phone: [facility] Start: 02-07-2024 End: 02-07-2024 Office outpatient visit 15 minutes Heidi Smith LENDING MANAGER Work Phone: [facility] Comment on above: Viral URI with cough (Primary Dx) Start: 02-07-2024 End: 02-07-2024 ambulatory HEIDI TEO Not Available Start: 01-18-2024 End: 01-18-2024 Orders Only Gautam Hunter Nolasco CNM Work Phone: [facility] Comment on above: Rhonchi (Primary Dx) Start: 12-16-2023 End: 12-16-2023 [facility] Result Encounter Generic External Data Provider [facility] Unsolicited Start: 12-16-2023 End: 12-16-2023 [facility] Result Encounter Generic External Data Provider [facility] External [facility] Unsolicited Start: 12-16-2023 End: 12-16-2023 ambulatory LAVERNE ONONAN [facility] Start: 11-02-2023 End: 11-02-2023 ambulatory [facility] Start: 11-02-2023 End: 11-02-2023 Encounter for preprocedural laboratory examination [facility] Start: 11-02-2023 End: 11-02-2023 [facility] Result Encounter Generic External Data Provider [facility] External [facility] Unsolicited Start: 11-02-2023 End: 11-02-2023 [facility] Result Encounter Generic External Data Provider [facility] External [facility] Unsolicited Start: 08-30-2023 End: 08-30-2023 ambulatory HEIDI SMITH Not Available Start: 06-23-2023 End: 06-23-2023 ambulatory GAUTAM Harrison FLORO Not Available Start: 05-12-2023 End: 05-12-2023 [...] HCG, QUANTITATIVE G eneric External Data Provider Start: 09-03-2022 TYPE AND SCREEN Not In System Ref Prov Plan of Treatment Date Care Activity Detail Author Start: 06-14-2029 DTaP,Tdap and Td Vaccines (8 - Td or Tdap) DTaP,Tdap and Td Vaccines (8 - Td or Tdap) [facility] Start: 07-09-2027 Screening for malign ant neoplasm of cervix [facility] Start: 06-19-2024 End: 06-19-2024 Patient encounter procedure 06/19/2024 6:00 PM EDT Office Visit [facility] [address] [place] [address] Gautam Nolasco, CNM [address] [place] [address] [facility] Start: 04-14-2024 End: 04-14-2024 Patient encounter procedure [facility] Start: 03-07-2024 End: 03-07-2024 ambulatory 03/07/2024 4:15 PM EST Initial [facility] [address] [place] [phone] Gautam Nolasco, KIMANIM [address] [place] [address] Arrived [facility] Comment on above: Arrived Start: 02-07-2024 End: 02-07-2024 Patient encounter procedure 02/07/2024 1:30 PM EST Office Visit [facility] [address] [place] [phone] Heidi Smith NP [address] [place], [place] [id number] Arrived [facility] Comment on above: Arrived Start: 10-31-2023 COVID-19 Vaccine ( season) COVID-19 Vaccine ( season) [facility] Start: 10-31-2023 Influenza vaccination [facility] Start: 02-24-2023 Adult BMI Screening Adult BMI Screen ing [facility] Start: 2014 Screening for malign ant neoplasm of cervix Pap Smear [facility] Start: 2005 Depression Screening Depression Scre ening [facility] Start: 2005 Tobacco Screening Tobacco Screening [facility] Immunizations Immunization Date Immunization Notes Care Provider Fa [facility] 11-19-2022 influenza, seasonal, injectable Generic Provider [facility] 11-19-2022 influenza virus vacc ine, unspecified formulation Generic Provider [facility] 04-06-2022 hepatitis B vaccine, adult dosage Generic Provider [facility] 04-06-2022 measles, mumps and r ubella virus vaccine Generic Provider [facility] 03-06-2022 measles, mumps and r ubella virus vaccine Generic Provider [facility] 12-05-2021 hepatitis B vaccine, adult dosage Generic Provider [facility] 12-05-2021 influenza, injectabl e, quadrivalent, preservative free Generic Provider [facility] 10-03-2021 hepatitis B vaccine, adult dosage Generic Provider [facility] 10-03-2021 hepatitis B vaccine, pediatric or pediatric/adolescent dosage Generic Provider [facility] 09-24-2021 tuberculin skin test ; purified protein derivative solution, intradermal Generic [facility] 09-17-2021 tuberculin skin test ; purified protein derivative solution, intradermal Generic [facility] 11-14-2020 influenza, injectabl e, quadrivalent, contains preservative Generic [facility] 08-06-2020 tuberculin skin test ; purified protein derivative solution, intradermal Generic [facility] 07-30-2020 tuberculin skin test ; purified protein derivative solution, intradermal Generic [facility] 11-23-2019 influenza, injectabl e, quadrivalent, contains preservative Generic [facility] 06-15-2019 tetanus toxoid, redu don diphtheria toxoid, and acellular pertussis vaccine, adsorbed Generic [facility] 11-24-2018 seasonal influenza, intradermal, preservative free Generic [facility] 12-18-2017 seasonal influenza, intradermal, preservative free Generic [facility] 12-08-2017 Influenza, injectabl e, [facility]in [facility] Canine Kidney, preservative free, quadrivalent Generic [facility] 06-30-2016 influenza, injectabl e, quadrivalent, contains preservative [facility] 05-25-2016 hepatitis A vaccine, pediatric/adolescent dosage, 2 dose schedule [facility] 03-04-2015 influenza, injectabl e, quadrivalent, preservative free Generic [facility] 02-15-2015 influenza, injectabl e, quadrivalent, preservative free Generic [facility] 11-25-2012 hepatitis A vaccine, pediatric/adolescent dosage, 2 dose schedule [facility] 05-25-2012 hepatitis A vaccine, pediatric/adolescent dosage, 2 dose schedule [facility] 05-25-2012 meningococcal polysa ccharide (groups A, C, Y and W-135) diphtheria toxoid conjugate vaccine (MCV4P) Generic [facility] 05-25-2012 tetanus toxoid, redu don diphtheria toxoid, and acellular pertussis vaccine, adsorbed Generic [facility] 05-25-2012 varicella virus vaccine Generic [facility] 04-04-2012 HPV, unspecified formulation Generic [facility] 02-02-2012 human papilloma viru s vaccine, quadrivalent Generic [facility] 03-01-2010 human papilloma viru s vaccine, quadrivalent Generic Provider [facility] 09-05-2001 varicella virus vaccine Generic Prov ider [facility] 07-14-1999 Diphtheria, tetanus toxoids and acellular pertussis vaccine, and poliovirus vaccine, inactivated Generic Provider [facility] 07-14-1999 diphtheria, tetanus toxoids and acellular pertussis vaccine, unspecified formulation Generic Provider [facility] 07-14-1999 measles, mumps and r ubella virus vaccine Generic Provider [facility] 07-14-1999 trivalent poliovirus vaccine, live, oral Generic Provider [facility] 04-05-1995 DTaP-Haemophilus inf luenzae type b conjugate vaccine Generic Provider [facility] 04-05-1995 measles, mumps and r ubella virus vaccine Generic Provider [facility] 06-22-1994 diphtheria, tetanus toxoids and acellular pertussis vaccine, Haemophilus influenzae type b conjugate, and poliovirus vaccine, inactivated ([id number]) Generic Provider [facility] 06-22-1994 hepatitis B vaccine, adult dosage Generic Provider [facility] 04-06-1994 diphtheria, tetanus toxoids and acellular pertussis vaccine, Haemophilus influenzae type b conjugate, and poliovirus vaccine, inactivated ([id number]) Generic Provider [facility] 04-06-1994 hepatitis B vaccine, adult dosage Generic Provider [facility] 02-02-1994 diphtheria, tetanus toxoids and acellular pertussis vaccine, Haemophilus influenzae type b conjugate, and poliovirus vaccine, inactivated ([id number]) Generic Provider [facility] 02-02-1994 hepatitis B vaccine, adult dosage Generic [facility] Payers Date Payer Category Payer Unknown [id number] 2024 Medicare [employer] [id number] 2023 Private Health Insurance [id number] 2023 Unknown [id number] 1993 Unknown [id number] 1993 Unknown [id number] 1993 Unknown [id number] 1993 Unknown [id number] .[id number] 1993 Unknown [id number] .[id number] 1993 Unknown [id number] .1259 1993 Unknown [id number] .[id number] 1993 Unknown [id number] .[id number] 1993 Unknown [id number] .[id number] 1993 Unknown [id number] .[id number] 1959 Unknown [id number] Unknown [id number] Social History Date Type Detail Facility Start: 10-07-2018 End: 08-24-2022 Tobacco smoking status PRIS Never smoked tobacco [facility] Start: 10-07-2018 End: 08-24-2022 Tobacco use and exposure Smokeless tobacco non-user [facility] Start: 08-30-2023 End: 03-02-2024 Alcoholic beverage intake Ex-drinker (finding) [facility] Start: 05-12-2023 End: 08-30-2023 History of Social function [facility] Start: 05-12-2023 End: 08-30-2023 Tobacco use panel [facility] The thought of janet head myself has occurred to me Never [facility] Start: 08-27-2022 Alcohol Comment caffeine: 1-2 cups/day [facility] Start: 1995 Sex assigned at Female [facility] Start: 08-17-2022 Gender identity Identifies as female gender (finding) [facility] Start: 02-24-2022 Sexual orientation Heterosexual (finding) [facility] Childcare Unknown [facility] Start: 10-07-2018 Alcohol Comment Occassional [facility] Start: 1995 Sex assigned at Not on file [facility] Start: 10-02-2014 Sex Female (finding) [facility] Start: 12-09-2023 [facility] Clinical Notes 02-24-2022 to 03-06-2024 Telephone Encounter - Alondra Eduardo RN - 03/06/2024 3:07 PM ESTTelephone Encounter - Alondra Eduardo RN - 03/06/2024 3:07 PM ESTTelephone Encounter - Yun Hathaway RN - 03/03/2024 3:38 PM EST Note Date & Type Note Facility 03-06-2024 Miscellaneous Notes Formattin g of this note might be different from the original. Phone call to OB office to inquire if any genetic testing done yet or not. OB office has no results as of now. A note will be placed in records to fax genetic results to [facility] as available. documented in this encounter [facility] 03-06-2024 Telephone encount er Note Phone call to OB office to inquire if any genetic testing done yet or not. OB office has no results as of now. A note will be placed in records to fax genetic results to [facility] as available. [facility] 03-03-2024 Miscellaneous Notes Formattin g of this note might be different from the original. Received patient call transferred from scheduling department. Patient has not yet been seen by MFM. Patient with questions/concerns regarding time of scheduled appointment. Patient scheduled for survey/echo on 04/14/24 but is concerned appointment should be scheduled sooner. Patient also requesting clarification on bed rest restrictions mentioned by OB. Reviewed information with Dr. Lutz. Per Dr. Lutz based on information received from OB, appointment date is appropriate. Attempted to contact [facility]. Office currently closed. Returned call to patient and explained Dr. Lutz's recommendations. Encouraged patient to follow up with referring OB regarding questions for plan of care and restrictions. Patient agreeable and verbalizes understanding. [email or web address] Telephone encount er Note Received patient call transferred from scheduling department. Patient has not yet been seen by MFM. Patient with questions/concerns regarding time of scheduled appointment. Patient scheduled for survey/echo on 04/14/24 but is concerned appointment should be scheduled sooner. Patient also requesting clarification on bed rest restrictions mentioned by OB. Reviewed information with Dr. Lutz. Per Dr. Lutz based on information received from OB, appointment date is appropriate. Attempted to contact [facility]. Office currently closed. Returned call to patient and explained Dr. Lutz's recommendations. Encouraged patient to follow up with referring OB regarding questions for plan of care and restrictions. Patient agreeable and verbalizes understanding. [facility] 02-07-2024 History of Presen t illness Narrative Images from the original note were not included. Kristen Garcia is a 28 y.o. female presents [...] a viral illness. documented in this encounter [facility] 01-18-2024 History of Presen t illness Narrative Patient surrogate, positive and not released from clinic yet. 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 She wanted me to prescribe the med as she is and recommended zpak RX sent to pharmacy. documented in this encounter [facility] 02-24-2022 Note FINDINGS: Comparison made with prior [...] Placenta Anterior Grade II Weight (g) by Afowmebrkt51.4 % * These measurements result in an [...] signed by Marvin Hamilton on 02/24/2022 [id number] [facility] [employer] Supervisor Evaluation note Diagnosis Rhonchi- Primary Abnormal chest sounds documented in this encounter [facility] HealthcareEvaluation note* Diagnosis Viral URI with cough- Primary documented in this encounter [facility] HealthcareInstructionsNot on filedocumented in this encounterProMemorial [facility] SystemInstructionsNot on filedocumented in this encounterProMedica Health System Summary Purpose Family History No Family History Records FoundNo Family History Records FoundNo Family History Records FoundNo Family History Records Found Advance Directives No Advanced Directives Records Found Date Activated Date Inactivated Comments 02/24/2022 1:25 PM 02/26/2022 2:51 PM Date Activated Date Inactivated Comments 09/04/2019 6:17 AM 09/05/2019 11:44 PM Additional Source Comments INFORMATION SOURCE (unrecogn ized section and content) DATE CREATED AUTHOR 02/24/2022 [facility] dical Specialist DATE CREATED AUTHOR AUTHOR'S ORGANIZ ATION 03/03/2022 [facility] DATE CREATED AUTHOR AUTHOR'S ORGANIZ ATION 12/18/2023 [facility] DATE CREATED AUTHOR AUTHOR'S ORGANIZ ATION 03/13/2024 [facility] dical Specialists [employer] Care Teams (unrecognized sec tion and content) 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 Relationship Specialty Start Date End Date Laverne Aguilera MD [address] [place] [address] PCP - General Family Medicine 08/30/23 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 Relationship Specialty Start Date End Date Laverne Aguilera MD [address] [place] [address] PCP - General Family Medicine 08/30/23 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 Relationship Specialty Start Date End Date Laverne Aguilera MD [address] [place] [address] PCP - General Family Medicine 08/30/23 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 Relationship Specialty Start Date End Date Laverne Aguilera MD [address] [place] [address] PCP - General Family Medicine 08/30/23 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 Relationship Specialty Start Date End Date Laverne Aguilera MD [address] [facility] [place] [address] PCP - General Family Medicine 08/30/23 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 Relationship Specialty Start Date End Date Leslie Bahena DO [address] [place] [address] PCP - General Family Medicine 01/28/21 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 Relationship Specialty Start Date End Date Leslie Bahena DO [address] [place], [place] [id number] PCP - General Family Medicine 01/28/21 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 Relationship Specialty Start Date End Date Laverne Aguilera MD [address] [place] [place], [place] [id number] PCP - General Family Medicine 08/30/23 Reason [...] BE BASED ON THE PRIMARY CLINICAL RECORDS. [facility] [employer] provides no warranty or guarantee of the accuracy or completeness of information in this document.
--- NOTE | 2024-03-14 16:51 | US_ITS ---
[place] [id number] Patient Name: KRISTEN PRIEST MRN: [id number] date: 1995 Sex: F Assigned Patient Location: US Current Patient Location: US Accession/Order Number: [id number] Exam Date: 03/14/2024 16:51 Report Date: 03/14/2024 17:13 At the request of: GAUTAM PATEL Procedure: US OB cervical length EXAMINATION: US OB cervical length, US OB placenta HISTORY: SUBCHORIONIC HEMATOM O41.8X21 COMPARISON: Ultrasound OB placenta 03/02/2024 FINDINGS: PLACENTA: Grade 1, fundal in location, with lower margin 3.8 cm from os. Hypoechoic 3.3 x 1.7 x 1.2 cm area within the placenta; possible venous castillo. Heterogeneous hypoechoic fluid collection within posterior uterus adjacent the placenta, 8.1 x 3.6 x 6.2 cm; no internal blood flow. CERVIX LENGTH: 4.4 cm in length; closed. HEART RATE: 154 bpm OTHER: None. US/US OB cervical length IMPRESSION: 1. Single live intrauterine . 2. Grossly stable large heterogeneous fluid collections suspected represent a subchorionic hematoma. No evidence of active bleeding or significant change. Electronically authenticated by: GWENDOLYN LUNA Date: 03/14/2024 17:13
== END 2024-03-14 15:41 | disposition home or self-care (01) ==
LOC: US 15:40
PROVIDERS: PCP Family Medicine; Visit Provider Midwife
DX: O41.8X2 Other specified disorders of amniotic fluid and membranes, second trimester (principal); O46.8X2 Other antepartum hemorrhage, second trimester
CPT/HCPCS: 76815; 76817

== ENCOUNTER 2024-03-30 09:20 | Outpatient (OUT) | payer OTHER, SELFPAY ==
--- NOTE | 2024-03-30 09:26 | US_ITS ---
[place] [id number] Patient Name: KRISTEN PRIEST MRN: [id number] date: 1995 Sex: F Assigned Patient Location: US Current Patient Location: US Accession/Order Number: [id number] Exam Date: 03/30/2024 09:30 Report Date: 03/30/2024 10:56 At the request of: GAUTAM PATEL Procedure: US OB follow up EXAMINATION: US OB follow up HISTORY: Subchronic Hematoma in Second Trimester COMPARISON: Ultrasound OB placenta 03/14/2024 FINDINGS: PLACENTA: Persistent subchorionic hematoma, 5.8 x 5.6 x 1.9 cm. CERVIX LENGTH: (Not evaluated) HEART RATE: 150 bpm OTHER: None. US/US OB follow up IMPRESSION: 1. Persistence prominent subchorionic hematoma. No other significant change. 2. Single live intrauterine . Electronically authenticated by: GWENDOLYN LUNA Date: 03/30/2024 10:56
== END 2024-03-30 09:21 | disposition home or self-care (01) ==
LOC: US 09:20
PROVIDERS: PCP Family Medicine; Visit Provider Midwife
DX: O41.8X20 Other specified disorders of amniotic fluid and membranes, second trimester, not applicable or unspecified (principal); O46.8X2 Other antepartum hemorrhage, second trimester
CPT/HCPCS: 76816

== ENCOUNTER 2024-06-10 05:38 | Observation (INO) | payer OTHER, SELFPAY ==
--- OUTSIDE RECORDS SUMMARY | 2024-06-10 05:42 | XMS_ITS | CCD ---
Author Organization [facility] Informat ion Partnership [facility] Care Team Providers Care Luncheonette Manager Name Role Phone MARBELLA, DR RINCON Admitting Unavailable MARBELLA, DR RINCON Attending Unavailable MARBELLA, DR RINCON Consulting Unavailable MARBELLA, DR RINCON Primary Care Unavailable Laverne Dubon MD Primary Care Provider LAVERNE NOONAN Primary Care Un available SHAMKEMAR ARSHAD Referring Unavailab KEMAR Lockwood Referring Unavailab LAVERNE Love Primary Care Un available Josef DOLeslie Primary Care Provider GAUTAM NOLASCO Referring Unavailable JOSEF, LESLIE G Primary Care Unavailable BETO ALBERT Attending Unavailable MERON NOLASCOERIE Referring Unavailable JOSEF, LESLIE G Primary Care Unavailable MERON NOLASCOERIE Referring Unavailable JOSEF, LESLIE G Primary Care Unavailable GAUTAM NOLASCO Attending Unavailable HEIDI SMITH Attending Unavailable HEIDI SMITH Attending Unavailable LISAOCOOPERE Hunter Attending Unavailable FLORO, GAUTAM L Attending Unavailable FLORO, GAUTAM L Attending Unavailable LISAOEMRONGAUTAM L Attending Unavailable LISAO, GAUTAM L Attending Unavailable Medications Current Medications Medication Drug Class(es) Dates Sig (Normalized) Sig (Original) 84 hr estradiol 0.21405 mg/hr transdermal system (4 sources) Estrogen Start: [...] Active ferrous sulfate 325 mg oral tablet (7 sources) Start: 02-26-2022 take 1 tablet by [...] 01/26/2024 Active ibuprofen 800 mg oral tablet (7 sources) Nonsteroidal Anti-inflammatory Drug Start: 09-05-2019 take 1 tablet by mouth every eight hours as needed ibuprofen (ADVIL,MOTRIN) 800 mg tablet Indications: pain Take 1 tablet (800 mg total) by mouth every 8 (eight) hours as needed (cramping). 30 tablet 09/05/2019 Active prenat.vits,reema,min -iron-folic ( VITAMIN) tablet (7 sources) take 1 tablet by mouth once daily prenat.vits,reema,mi i-ikya-ikkcy ( VITAMIN) tablet Take 1 tablet by mouth daily. Active MV-Min-Fe Fum-FA-DHA ( 1 PO) (16 sources) MV-Min- Fe Fum-FA-DHA ( 1 PO) [...] disorder, unspecified] Onset: 12-23-2022 12-23-2022 Chronic Asthma (20 sources) Exercise-induced asthma; Translations: [Exercise induced bronchospasm] Onset: 12-23-2022 12-23-2022 Chronic Headache; including migraine (20 sources) Chronic post-traumatic headache; Translations: [Chronic post-traumatic headache, not intractable] Onset: 12-23-2022 12-23-2022 Chronic Hemorrhage during ; abruptio placenta; placenta previa (1 source) Other antepartum hemorrhage, second trimester; Translations: [Other antepartum hemorrhage, second trimester] Onset: 04-14-2024 Episodic Joint disorders and dislocations; trauma-related (20 sources) Derangement of left knee; Translations: [Unspecified internal derangement of left knee] Onset: 12-23-2022 12-23-2022 Chronic Other circulatory disease (1 source) Wheeze - rhonchi; Translations: [Other specified symptoms and signs involving the circulatory and respiratory systems] 01-18-2024 Episodic Other complications of (5 sources) Central nervous system malformation in fetus affecting obstetrical care; Translations: [Choroid plexus cyst of fetus affecting care of mother, antepartum, single or unspecified fetus] Onset: 04-14-2024 04-14-2024 Episodic Other endocrine disorders (2 sources) Endocrine disorder, unspecified; Translations: [Endocrine disorder, unspecified] Onset: 12-16-2023 Episodic Other screening for suspected conditions (not mental disorders or infectious disease) (1 source) Encounter for other specified screening; Translations: [Encounter for other specified screening] Onset: 04-14-2024 Episodic Other upper respiratory infections (2 sources) Viral upper respiratory tract infection; Translations: [Acute upper respiratory infection, unspecified] 02-07-2024 Episodic Polyhydramnios and other problems of amniotic cavity (10 sources) Subchorionic hematoma; Translations: [Other specified disorders of amniotic fluid and membranes, second trimester, not applicable or unspecified] Onset: 04-14-2024 03-21-2024 Episodic Unclassified (1 source) Maternal care for (suspected) central nervous system malformation or damage in fetus, choroid plexus cysts, fetus 1; Translations: [Maternal care for (suspected) central nervous system malformation or damage in fetus, choroid plexus cysts, fetus 1] Onset: 04-14-2024 Unclassified (1 source) Surrogate Onset: 04-14-2024 Unclassified (1 source) Maternal care for (suspected) central nervous system malformation or damage in fetus, choroid plexus cysts, not applicable or unspecified; Translations: [Maternal care for (suspected) central nervous system malformation or damage in fetus, choroid plexus cysts, not applicable or unspecified] Onset: 05-12-2024 Past or Other Problems Problem Classification Problem Date Documented Da te Episodic/Chronic Conditions associated with dizziness or vertigo (20 sources) Dizziness; Translations: [Dizziness and giddiness] Onset: 12-23-2022 12-23-2022 Episodic Fracture of lower limb (20 sources) Stress fracture of tibia; Translations: [Stress fracture, left tibia, subsequent encounter for fracture with routine healing] Onset: 12-23-2022 12-23-2022 Episodic Headache; including migraine (20 sources) Chronic daily headache; Translations: [Chronic daily headache] Onset: 12-23-2022 12-23-2022 Episodic Immunizations and screening for infectious disease (4 sources) Contact with and (suspected) exposure to other viral communicable diseases; Translations: [CONTCT EXPS OTH VIRL COMMUNICABL DZ] Onset: 02-28-2020 Episodic Intracranial injury (20 sources) Concussion injury of body structure; Translations: [Concussion] Onset: 12-23-2022 12-23-2022 Episodic Other complications of ; puerperium affecting management of mother (20 sources) hemorrhage; Translations: [Other immediate hemorrhage] Onset: 03-06-2022 12-23-2022 Episodic Other complications of (20 sources) Placenta circumvallata; Translations: [Circumvallate placenta, unspecified trimester] Onset: 05-28-2019 12-23-2022 Episodic Other complications of (7 sources) Missed miscarriage; Translations: [Missed ] Onset: 10-07-2018 Resolved: 04-03-2019 04-03-2019 Episodic Other ear and sense organ disorders (20 sources) Tinnitus of right ear; Translations: [Tinnitus, right ear] Onset: 12-23-2022 12-23-2022 Episodic Other non-traumatic joint disorders (20 sources) Pain in left knee; Translations: [Pain in joint, lower leg] Onset: 12-23-2022 12-23-2022 Episodic Other and delivery including normal (20 sources) Patient encounter status; Translations: [Encounter for supervision of normal , unspecified, unspecified trimester] Onset: 04-03-2019 12-23-2022 Episodic Residual codes; unclassified (7 sources) Gestation period, 39 weeks; Translations: [39 weeks gestation of ] Onset: 09-04-2019 09-04-2019 Episodic Urinary tract infections (20 sources) Lower urinary tract infectious disease; Translations: [Urinary tract infection, site not specified] Onset: 12-23-2022 12-23-2022 Episodic Results Test Name Value Interpretation Reference Range Facility US for multiple gestation pr egnancy limitedon 03-30-2024 [place] [address] Ultrasound Report Signed Patient: KRISTEN GARCIA MR#: [id number] : 1995 Acct:[id number] Age/Sex: 28 / F ADM Date: 03/30/24 Loc: US Attending Dr: GAUTAM NOLASCO APRN, CNM Ordering Physician: GAUTAM NOLASCO APRN, CNM Date of Service: 03/30/24 Procedure(s): US OB follow up Accession Number(s): [id number] cc: GAUTAM NOLASCO APRN, CNM; LAVERNE DUBON [address] [address] Patient Name: KRISTEN GARCIA MRN: [facility]:[id number] date: 1995 Sex: F Assigned Patient Location: US Current Patient Location: US Accession/Order Number: [id number] Exam Date: 03/30/2024 09:30 Report Date: 03/30/2024 10:56 At the request of: GAUTAM NOLASCO Procedure: US OB follow up EXAMINATION: US OB follow up HISTORY: Subchronic Hematoma in Second Trimester COMPARISON: Ultrasound OB placenta 03/14/2024 FINDINGS: PLACENTA: Persistent subchorionic hematoma, 5.8 x 5.6 x 1.9 cm. CERVIX LENGTH: (Not evaluated) HEART RATE: 150 bpm OTHER: None. US/US OB follow up IMPRESSION: 1. Persistence prominent subchorionic hematoma. No other significant change. 2. Single live intrauterine . Electronically authenticated by: ANISH JO Date: 03/30/2024 10:56 Dictated By: Anish Jo M.D. Signed By: 03/30/24 1058 DD/ 1056 TD/TT: Visual Specialist: [facility] Radiology, Radiologist, MD - 03/30/2024 [place] [address] Ultrasound Report Signed Patient: KRISTEN GARCIA MR#: [id number] : 1995 Acct:[id number] Age/Sex: 28 / F ADM Date: 03/30/24 Loc: US Attending Dr: GAUTAM NOLASCO APRN, CNM Ordering Physician: GAUTAM NOLASCO APRN, CNM Date of Service: 03/30/24 Procedure(s): US OB follow up Accession Number(s): [id number] cc: GAUTAM NOLASCO APRN, CNM; LAVERNE DUBON The [address] [address] Patient Name: KRISTEN GARCIA MRN: [facility]:[id number] date: 1995 Sex: F Assigned Patient Location: US Current Patient Location: US Accession/Order Number: [id number] Exam Date: 03/30/2024 09:30 Report Date: 03/30/2024 10:56 At the request of: GAUTAM ONLASCO Procedure: US OB follow up EXAMINATION: US OB follow up HISTORY: Subchronic Hematoma in Second Trimester COMPARISON: Ultrasound OB placenta 03/14/2024 FINDINGS: PLACENTA: Persistent subchorionic hematoma, 5.8 x 5.6 x 1.9 cm. CERVIX LENGTH: (Not evaluated) HEART RATE: 150 bpm OTHER: None. US/US OB follow up IMPRESSION: 1. Persistence prominent subchorionic hematoma. No other significant change. 2. Single live intrauterine . Electronically authenticated by: ANISH JO Date: 03/30/2024 10:56 Dictated By: Anish Jo M.D. Signed By: 03/30/24 1058 DD/ 1056 TD/TT: Visual Specialist: [facility] Radiology Study observation (narrative) [facility] US for multiple gestation pr egnancy limitedOrdered By: Radiologist Radiology on 03-30-2024 [facility] Work Phone: Bacteria identified Cx Nom ( U)on 03-10-2024 Appearance (U) Adequate [facility] Internal identifier for Provider [id number] [facility] Specimen source Nom (Unsp spec) URINE [facility] STATUS FINAL [facility] Laboratory - Drug toxicology on 03-10-2024 9-Ggelhvgafk-0,5-Dimethy l-3,3-Diphenylpyrrolidin e (EDDP) Ql (U) Negative NINF - 100 ng/mL [facility] Amphetamines Ql (U) Negative NINF - 5 00 ng/mL [facility] Barbiturates Ql (U) Negative NINF - 3 00 ng/mL [facility] Benzodiazepines Ql (U) Negative NINF - 100 ng/mL [facility] Benzoylecgonine Ql (U) Negative NINF - 150 ng/mL [facility] Opiates Ql (U) Negative NINF - 100 ng/mL [facility] oxyCODONE Ql (U) Negative NINF - 100 ng/mL [facility] Phencyclidine Ql (U) Negative NINF - 25 ng/mL [facility] Tetrahydrocannabinol Screen method >20 ng/mL Ql (U) Negative NINF - 20 ng/mL [facility] Laboratory - Microbiology an d Antimicrobial susceptibilityon 03-10-2024 Bacteria identified Cx Nom (U) SEE NOTE [facility] Comment on above: No Growth Laboratory - Miscellaneous t estson 03-10-2024 Service comment (Unsp spec) [Interp] [facility] Comment on above: This urine was bon zed for the presence of WBC, RBC, bacteria, casts, and other formed elements. Only those elements seen were reported. Laboratory - Urinalysison Bacteria LM.HPF (Urine sed) [#/Area] FEW Abnormal NONE SEEN /HPF [facility] Calcium oxalate crystals LM.HPF (Urine sed) [#/Area] FEW NONE OR FEW /HPF [facility] Epithelial cells.squamous LM.HPF (Urine sed) [#/Area] 6-10 Abnormal < OR = 5 /HPF [facility] WBC LM.HPF (Urine sed) [#/Area] 0-5 < OR = 5 /HPF [facility] N. gonorrhoeae DNA WAN+probe Ql (Cervical mucus)on 03-10-2024 C. trachomatis rRNA WAN+probe Ql (Unsp spec) Not detected NOT DETECTED [facility] N. gonorrhoeae rRNA WAN+probe Ql (Unsp spec) Not detected NOT DETECTED [facility] No Panel Informationon 03-10 (ALWAYS MESSAGE) [facility] Comment on above: See Note 1 Note 1 This drug testing is for medical treatment only. Analysis was performed as non-forensic testing and these results should be used only by healthcare providers to render diagnosis or treatment, or to monitor progress of medical conditions. For assistance with interpreting these drug results, please contact a [facility] Toxicology Specialist: [phone] ( ), M-F, 8am-6pm EST. The analytical perfo rmance characteristics of this assay, when used to test SurePath(TM) specimens have been determined by [facility]. The modifications have not been cleared or approved by the FDA. This assay has been validated pursuant to the CLIA regulations and is used for clinical purposes. For additional information, please refer to https://education.[employer]/faq/SNQ303 (This link is being provided for information/ educational purposes only.) Interpretation and review of laboratory results Abnormal [facility] Information Site ID: QPT Name: [facility] Address: [address] [place] [phone] Director: Ramírez Zacarias MD [facility] Organization Information Site ID: QTW Name: [facility] Address: [address] [place] [phone] Director: Aurelia Gloria [facility] CBC panel Auto (Bld)on 03-08 Erythrocyte distribution width (RBC) [Ratio] 12.9 % 11.0 - 15.0 % [facility] Hematocrit (Bld) [Volume fraction] 39.6 % 35.0 - 45.0 % [facility] Hemoglobin (Bld) [Mass/Vol] 13 g/dL 11.7 - 15.5 g/dL [facility] Interpretation and review of laboratory results Abnormal [facility] MCH (RBC) [Entitic mass] 29.5 pg 27. 0 - 33.0 pg [facility] MCHC (RBC) [Mass/Vol] 32.8 g/dL 32.0 - 36.0 g/dL [facility] Comment on above: For adults, a slight decrease in the calculated MCHC value (in the range of 30 to 32 g/dL) is most likely not clinically significant; however, it should be interpreted with caution in correlation with other red cell parameters and the patient's clinical condition. MCV (RBC) [Entitic vol] 90 fL 80.0 - 100.0 fL [facility] Platelet mean volume (Bld) [Entitic vol] 9.7 fL 7.5 - 12.5 fL [facility] Platelets (Bld) [#/Vol] 429 10*3/uL High [facility] RBC (Bld) [#/Vol] 4.4 10*6/uL [facility] WBC (Bld) [#/Vol] 8.1 10*3/uL [facility] Laboratory - Blood bankon ABO group Nom (Bld) A [facility] Blood group antibody screen Ql Detected [facility] Comment on above: Reference range No antibodies detected This assay is a screening test for the detection of red blood cell antibodies. The test is not to be used for pretransfusion screening or for the medical management of an alloimmunized . Rh Nom (Bld) Positive [facility] Comment on above: For additional information, please refer to http://[employer]/faq/INX363 (This link is being provided for informational/ educational purposes only.) Laboratory - Chemistry and C hemistry - challengeon 03-08-2024 TSH Qn 0.64 m[IU]/L mIU/L [facility] Comment on above: Reference Range > or = 20 Years 0.40-4.50 Ranges First trimester 0.26-2.66 Second trimester 0.55-2.73 Third trimester 0.43-2.91 Laboratory - Hematology and Cell countson 03-08-2024 HbA1c (Bld) [Mass fraction] 4.8 % NINF [facility] Comment on above: For the purpose of s creening for the presence of diabetes: <5.7% Consistent with the absence of diabetes 5.7-6.4% Consistent with increased risk for diabetes (prediabetes) > or =6.5% Consistent with diabetes This assay result is consistent with a decreased risk of diabetes. Currently, no consensus exists regarding use of hemoglobin A1c for diagnosis of diabetes in children. According to [place] [employer] Association (ADA) guidelines, hemoglobin A1c <7.0% represents optimal control in non- diabetic patients. Different metrics may apply to specific patient populations. Standards of Medical Care in Diabetes(ADA). Laboratory - Microbiology an d Antimicrobial susceptibilityon 03-08-2024 HBV surface Ag IA Ql Non-Reactive NON-REACTIVE [facility] Comment on above: For additional information, please refer to http://[employer]/faq/INH278 (This link is being provided for informational/ educational purposes only.) HCV Ab IA Ql Non-Reactive NON-REACTIVE [facility] Comment on above: HCV antibody was non-reactive. There is no laboratory evidence of HCV infection. In most cases, no further action is required. However, if recent HCV exposure is suspected, a test for HCV RNA (test code 32510) is suggested. For additional information please refer to http://[employer]/faq/FEA67j0 (This link is being provided for informational/ educational purposes only.) HIV 1+2 Ab+HIV1 p24 Ag IA Ql Non-Reactive NON-REACTIVE [facility] Comment on above: HIV-1 antigen and HI V-1/HIV-2 antibodies were not detected. There is no laboratory evidence of HIV infection. PLEASE NOTE: This information has been disclosed to you from records whose confidentiality may be protected by state law. If your state requires such protection, then the state law prohibits you from making any further disclosure of the information without the specific written consent of the person to whom it pertains, or as otherwise permitted by law. A general authorization for the release of medical or other information is NOT sufficient for this purpose. For additional information please refer to http://education.[employer]/faq/KGC941 (This link is being provided for informational/ educational purposes only.) The performance of this assay has not been clinically validated in patients less than 2 years old. Reagin Ab RPR Ql (S) Non-Reactive NON-REACTIVE [facility] Rubella virus IgG Qn (S) 1.89 [IU]/mL Index [facility] Comment on above: Index Interpretation ----- <0.90 Not consistent with immunity 0.90-0.99 Equivocal > or = 1.00 Consistent with immunity The presence of rubella IgG antibody suggests immunization or past or current infection with rubella virus. No Panel Informationon 03-08 MULTIPLE COLLECTION TIMES FOR SAME TEST TYPE. [facility] Organization Information Site ID: QPT Name: [facility] Address: [address] [place] [phone] Director: Ramírez Zacarias MD [facility] ALL PROGESTERONEon 4 PT PROGESTERONE 47.9 ng/mL [facility] Comment on above: Female: Follicular phase <0.19 ng/mL Ovulation phase 0.06-4.14 ng/mL Luteal phase 4.11-14.5 ng/mL Postmenopausal <0.13 ng/mL Estradiolon 12-16-2023 Estradiol 459.0 pg/mL Normal [facility] Comment on above: Result Comment: FEMALES: Normally menstruating Luteal phase 60-232 Follicular phase 31-90 Midcycle phase 60-533 Postmenopausal (untreated) <138 Fulvestrant treatment will show an increased estradiol concentration with this methodology. Alternate methodologies are available upon request. Performed By: #### E 2, PROG #### [facility] [address] [place], [place] [id number] Correctional Counselor: Sameer May MD MHPT ESTRADIOLon 12-16-2023 PT ESTRADIOL 459 pg/mL [facility] Comment on above: FEMALES: Normally menstruating Luteal phase 60-232 Follicular phase 31-90 Midcycle phase 60-533 Postmenopausal (untreated) <138 Fulvestrant treatment will show an increased estradiol concentration with this methodology. Alternate methodologies are available upon request. No Panel Informationon 12-15 Original Ordering Provider: KEMAR DE SANTIAGO MD [facility] Progesteroneon 12-16-2023 Progesterone 47.90 ng/mL Normal [facility] Comment on above: Result Comment: Female: Follicular phase <0.19 ng/mL Ovulation phase 0.06-4.14 ng/mL Luteal phase 4.11-14.5 ng/mL Postmenopausal <0.13 ng/mL Performed By: #### E 2, PROG #### [facility] [address] [place], [place] [id number] Correctional Counselor: Sameer May MD ALL HCG, QUANTITATIVEon 09 PT HCG, QUANT <0.2 [facility] Comment on above: Non-preg premeno <=5 Postmeno <=8 Male <=3 If HCG results do not concur with clinical observations, additional testing to confirm results is recommended. Original Ordering Provider: KEMAR DE SANTIAGO MD [facility] HCG, Quanton 11-02-2023 HCG, Quant <0.2 Normal 0-7 [facility] Comment on above: Result Comment: Non-preg premeno <=5 Postmeno <=8 Male <=3 If HCG results do not concur with clinical observations, additional testing to confirm results is recommended. Performed By: #### B HCG #### [facility] [address] [place], [place] [id number] Correctional Counselor: Sameer May MD Type and screenOrdered By: Andrews Eduardo on 09-03-2022 Abo/Rh(D) Positive [facility] OB Growthon 02-12-2022 US OB Growth FINDINGS: [...] by Marvin Hamilton on 02/12/2022 0957 Normal [facility] Comptometrist OB Growthon 12-22-2021 US OB Growth FINDINGS: [...] by Marvin Hamilton on 12/23/2021 0940 Normal [facility] Comptometrist US OB 2nd/3rd Trimesteron OB 2nd/3rd Trimester [...] and signed by Marvin Hamilton on 10/14/2021 0912 Normal [facility] Specialist Vital Signs Date Time Vital Sign Value Performing Clinician Facility 05-03-2024 11:03-0500 Body mass index (BMI) [Ratio] 24.59 kg/m2 Gautam Nolasco CNM Work Phone: [facility] 05-03-2024 11:03-0500 Body weight 71.22 kg Gautam Floro CNM Work Phone: [facility] 05-03-2024 11:03-0500 Diastolic blood pressure 70 mm[Hg] Gautam Floro CNM Work Phone: [facility] 05-03-2024 11:03-0500 Systolic blood pressure 110 mm[Hg] Gautam Floro CNM Work Phone: [facility] 04-14-2024 11:41-0500 Body mass index (BMI) [Ratio] 23.76 kg/m2 Beto Albert MD Work Phone: [facility] 04-14-2024 11:41-0500 Body weight 66.77 kg Beto Albert MD Work Phone: [facility] 04-14-2024 11:41-0500 Diastolic blood pressure 68 mm[Hg] Beto Albert MD Work Phone: [facility] 04-14-2024 11:41-0500 Heart rate 86 /min Beto Albert MD Work Phone: [facility] 04-14-2024 11:41-0500 Systolic blood pressure 100 mm[Hg] Beto Albert MD Work Phone: [facility] 04-05-2024 11:24-0500 Body mass index (BMI) [Ratio] 23.49 kg/m2 Gautam Floro CNM Work Phone: [facility] 04-05-2024 11:24-0500 Body weight 68.04 kg Gautam Floro CNM Work Phone: [facility] 04-05-2024 11:24-0500 Diastolic blood pressure 80 mm[Hg] Gautam Floro CNM Work Phone: [facility] 04-05-2024 11:24-0500 Systolic blood pressure 118 mm[Hg] Gautam Floro CNM Work Phone: [facility] 03-21-2024 13:20-0500 Body mass index (BMI) [Ratio] 22.55 kg/m2 Gautam Lisao CNM Work Phone: [facility] 03-21-2024 13:20-0500 Body weight 65.32 kg Gautam Lisao CNM Work Phone: [facility] 03-21-2024 13:20-0500 Diastolic blood pressure 80 mm[Hg] Gautam Lisao CNM Work Phone: [facility] 03-21-2024 13:20-0500 Systolic blood pressure 118 mm[Hg] Gautam Lisao CNM Work Phone: [facility] 03-07-2024 16:02-0500 Body mass index (BMI) [Ratio] 22.24 kg/m2 Gautam Gonzalezo CNM Work Phone: [facility] 03-07-2024 16:02-0500 Body weight 64.41 kg Gautam Gonzalezo CNM Work Phone: [facility] 02-07-2024 13:31-0500 Body height 170.2 cm Heidi Sarah PROGRAM MANAGER TRANSPORTATION Work Phone: [facility] 02-07-2024 13:31-0500 Body mass index (BMI) [Ratio] 22.71 kg/m2 Heidi Sarah PROGRAM MANAGER TRANSPORTATION Work Phone: [facility] 02-07-2024 13:31-0500 Body temperature 97.81 [degF] Heidi Sarah PROGRAM MANAGER TRANSPORTATION Work Phone: [facility] 02-07-2024 13:31-0500 Body weight 65.77 kg Heidi Hesteravel PROGRAM MANAGER TRANSPORTATION Work Phone: [facility] 02-07-2024 13:31-0500 Diastolic blood pressure 60 mm[Hg] Heidi Smith PROGRAM MANAGER TRANSPORTATION Work Phone: [facility] 02-07-2024 13:31-0500 Heart rate 110 /min Heidi Smith PROGRAM MANAGER TRANSPORTATION Work Phone: [facility] 02-07-2024 13:31-0500 SaO2% (BldA) [Mass fraction] 99 % Heidi Smith PROGRAM MANAGER TRANSPORTATION Work Phone: [facility] 02-07-2024 13:31-0500 Systolic blood pressure 118 mm[Hg] Heidi Smith PROGRAM MANAGER TRANSPORTATION Work Phone: [facility] Healthcare Encounters Encounter Date Encounter Type Care Provider Facility Start: 05-31-2024 End: 05-31-2024 Bamboo flowsheet Gautam L Floro CNM Work Phone: [facility] Start: 05-31-2024 End: 05-31-2024 Bamboo flowsheet Gautam L Floro CNM Work Phone: [facility] Start: 05-31-2024 End: 05-31-2024 ambulatory GAUTAM L FLORO Not Available Start: 05-12-2024 End: 05-12-2024 ambulatory [facility] Start: 05-03-2024 End: 05-03-2024 Bamboo flowsheet Gautam L Floro CNM Work Phone: [facility] Start: 05-03-2024 End: 05-03-2024 Bamboo flowsheet Gautam L Floro CNM Work Phone: [facility] Start: 05-03-2024 End: 05-03-2024 Subsequent care visit Gautam L Floro CNM Work Phone: [facility] Comment on above: Encounter for superv ision of other normal in second trimester (Primary Dx); Surrogate ; Subchorionic hematoma in second trimester, single or unspecified fetus; Anxiety, generalized (CMS/HCC) Start: 05-03-2024 End: 05-03-2024 ambulatory GAUTAM L FLORO Not Available Start: 04-14-2024 End: 04-14-2024 Office consultation new/estab patient 60 min Lara Hinojosa MD Work Phone: [facility] Comment on above: Choroid plexus cyst of fetus affecting care of mother, antepartum, fetus 1 (Primary Dx); Subchorionic hematoma in second trimester, single or unspecified fetus Start: 04-14-2024 End: 04-14-2024 Orders Only Yun Hathaway RN [facility] Comment on above: Choroid plexus cyst of fetus affecting care of mother, antepartum, single or unspecified fetus (Primary Dx); Surrogate Start: 04-10-2024 End: 04-10-2024 Documentation procedure Davina Sosa RESET MERCHANDISER-CNM Work Phone: [facility] Start: 04-07-2024 End: 04-07-2024 Documentation procedure Davina Sosa RESET MERCHANDISER-CNM Work Phone: [facility] Start: 04-05-2024 End: 04-05-2024 Bamboo flowsheet Gautam Gonzalezo CNM Work Phone: [facility] Start: 04-05-2024 End: 04-05-2024 Bamboo flowsheet Gautam Hunter Gonzalezo CNM Work Phone: [facility] Start: 04-05-2024 End: 04-05-2024 Subsequent care visit Gautam Gonzalezo CNM Work Phone: [facility] Comment on above: Encounter for superv ision of other normal in second trimester (Primary Dx); Subchorionic hematoma in second trimester, single or unspecified fetus; Anxiety, generalized (CMS/HCC); Surrogate Start: 04-05-2024 End: 04-05-2024 ambulatory GAUTAM NOLASCO Not Available Start: 03-30-2024 End: 03-30-2024 Clinisync Result Encounter Gautam Gonzalezo CNM Work Phone: [facility] Unsolicited Start: 03-30-2024 End: 03-30-2024 Clinisync Result Encounter Gautamlasha Gonzalezo CNM Work Phone: [facility] Unsolicited Start: 03-21-2024 End: 03-21-2024 Bamboo flowsheet Gautam L Floro CNM Work Phone: [facility] Start: 03-21-2024 End: 03-21-2024 Bamboo flowsheet Gautam L Floro CNM Work Phone: [facility] Start: 03-21-2024 End: 03-21-2024 Subsequent care visit Gautam Hunter Gonzalezo CNM Work Phone: [facility] Comment on above: Encounter for superv ision of other normal in second trimester (Primary Dx); Subchorionic hematoma in second trimester, single or unspecified fetus Start: 03-21-2024 End: 03-21-2024 ambulatory GAUTAM L FLORO Not Available Start: 03-07-2024 End: 03-07-2024 Subsequent care visit Gautam Hunter Gonzalezo CNM Work Phone: [facility] Comment on above: GA: 14w5d Start: 03-07-2024 End: 03-07-2024 ambulatory GAUTAM L FLORO Not Available Start: 03-07-2024 End: 03-07-2024 Bamboo flowsheet Gautam L Floro CNM Work Phone: [facility] Start: 03-07-2024 End: 03-07-2024 Bamboo flowsheet Gautam L Floro CNM Work Phone: [facility] Start: 03-06-2024 End: 03-06-2024 Chart abstracting Lara Hinojosa MD Work Phone: [facility] Start: 03-06-2024 End: 03-06-2024 Telephone encounter Alondra Eduardo RN [facility] Start: 03-03-2024 End: 03-03-2024 Telephone encounter Yun Hathaway RN [facility] Start: 02-07-2024 End: 02-07-2024 Bamboo flowsheet Heidi Smith PROGRAM MANAGER TRANSPORTATION Work Phone: [facility] Start: 02-07-2024 End: 02-07-2024 Bamboo flowsheet Heidi Smith PROGRAM MANAGER TRANSPORTATION Work Phone: [facility] Start: 02-07-2024 End: 02-07-2024 Office outpatient visit 15 minutes Heidi Smith PROGRAM MANAGER TRANSPORTATION Work Phone: [facility] Comment on above: Viral URI with cough (Primary Dx) Start: 02-07-2024 End: 02-07-2024 ambulatory HEIDI HESTERPFER Not Available Start: 01-18-2024 End: 01-18-2024 Orders Only Gautam Nolasco CNM Work Phone: [facility] Comment on above: Rhonchi (Primary Dx) Start: 12-16-2023 End: 12-16-2023 Clinisync Result Encounter Generic External Data Provider [facility] Unsolicited Start: 12-16-2023 End: 12-16-2023 Clinisync Result Encounter Generic External Data Provider [facility] Unsolicited Start: 12-16-2023 End: 12-16-2023 [facility] Start: 11-02-2023 End: 11-02-2023 ambulatory [facility] Start: 11-02-2023 End: 11-02-2023 Encounter for preprocedural laboratory examination [facility] Start: 11-02-2023 End: 11-02-2023 Clinisync Result Encounter Generic External Data Provider [facility] Unsolicited Start: 11-02-2023 End: 11-02-2023 Clinisync Result Encounter Generic External Data Provider [facility] Unsolicited Start: 08-30-2023 End: 08-30-2023 ambulatory HEIDI HESTERPFER Not Available Start: 06-23-2023 End: 06-23-2023 ambulatory GAUTAM GONZALEZO Not Available Start: 02-28-2020 End: 02-28-[address] SERGEY TYSON Facility: Procedures Date Procedure Procedure Detail Performing Clinician Start: 03-30-2024 US for multiple gest ation limited Gautam Nolasco CNM Work Phone: Start: 03-07-2024 End: 03-07-2024 Culture bacterial quanttative colony count urine Gautam Gonzalezo CNM Work Phone: Start: 03-07-2024 DRUG TOX MONITORIGN 6 W/ CONF,URINE Gautam Hunter Gonzalezo CNM Work Phone: Start: 03-07-2024 URINALYSIS MICROSCOPIC Gautam Hunter Gonzalezo CNM Work Phone: Start: 03-07-2024 Antibody screen rbc each serum technique Gautam Hunter Gonzalezo CNM Work Phone: Start: 03-07-2024 Hemoglobin glycosyla luaks a1c Gautam Gonzalezo CNM Work Phone: Start: 03-07-2024 TSH W/REFLEX TO FT4 Meron lashawali Gonzalezo CNM Work Phone: Start: 12-16-2023 ALL PROGESTERONE Generi c External [...] Td Vaccines (8 - Td or Tdap) [facility] Start: 07-09-2027 Screening for malign ant neoplasm of cervix [facility] Start: 04-14-2025 Adult BMI Screening Adult BMI Screen ing [facility] Start: 04-14-2025 Tobacco Screening Tobacco Screening [facility] Start: 04-14-2025 End: 04-14-2025 US MFM with or without consult US MFM with or without consult Imaging Routine Choroid plexus cyst of fetus affecting care of mother, antepartum, single or unspecified fetus Surrogate Expected: 04/14/2025 (Approximate), Expires: 04/14/2025 [facility] Work Phone: Comment on above: Expected: 04/14/2025 (Approximate), Expires: 04/14/2025 Start: 10-30-2024 Influenza vaccination Influenz a Vaccine (Season Ended) [facility] Start: 06-19-2024 End: 06-19-2024 Patient encounter procedure 06/19/2024 6:00 PM EDT Office Visit [facility] [address] [place] [id number] Gautam Nolasco, [facility] [address] [place], [place] [id number] [facility] Start: 05-31-2024 End: 05-31-2024 Patient encounter procedure [facility] Comment on above: Arrived Start: 05-12-2024 End: 05-12-2024 Patient encounter procedure 05/12/2024 11:00 AM EDT Appointment [facility] [address] [facility] [place] [address] [facility] Start: 05-03-2024 End: 05-03-2024 Patient encounter procedure [facility] Comment on above: Arrived Start: 04-14-2024 End: 04-14-2024 Patient encounter procedure [facility] Start: 04-05-2024 End: 04-05-2024 Patient encounter procedure 04/05/2024 1:30 PM EST Routine [facility] [address] [place] [id number] Gautam Nolasco, [facility] [address] [place], [place] [id number] [facility] Start: 04-05-2024 End: 04-05-2024 Patient encounter procedure [facility] Comment on above: Arrived Start: 03-21-2024 End: 03-21-2024 Patient encounter procedure 03/21/2024 1:30 PM EST Routine [facility] [address] [facility] [place] [address] Gautam Nolasco, CN [address] [facility] [place] [address] Arrived [facility] Comment on above: Arrived Start: 03-07-2024 End: 03-07-2024 ambulatory 03/07/2024 4:15 PM EST Initial [facility] [address] [facility] [place] [address] Gautam Nolasco, CN [address] [place] [address] Arrived [facility] Comment on above: Arrived Start: 02-07-2024 End: 02-07-2024 Patient encounter procedure 02/07/2024 1:30 PM EST Office Visit [facility] [address] [place] [id number] Heidi Smith NP [address] [place] [address] Arrived [facility] Comment on above: Arrived Start: 10-31-2023 COVID-19 Vaccine ( season) COVID-19 Vaccine ( season) [facility] Start: 10-31-2023 Influenza vaccination [facility] Start: 02-24-2023 Adult BMI Screening Adult BMI Screen ing [facility] Start: 2014 Screening for malign ant neoplasm of cervix Pap Smear [facility] Start: 2005 Depression Screening Depression Scre ening [facility] Start: 2005 Tobacco Screening Tobacco Screening [facility] Immunizations Immunization Date Immunization Notes Care Provider Fa cility 11-19-2022 influenza, seasonal, injectable Generic Provider [facility] 11-19-2022 influenza virus vacc ine, unspecified formulation Generic Provider [facility] 04-06-2022 hepatitis B vaccine, adult dosage Generic Provider [facility] 04-06-2022 measles, mumps and r ubella virus vaccine Generic Provider [facility] 03-06-2022 measles, mumps and r ubella virus vaccine Generic Provider [facility] 12-05-2021 hepatitis B vaccine, adult dosage Generic Provider [facility] 12-05-2021 influenza, injectabl e, quadrivalent, preservative free Generic Provider [facility] 10-03-2021 hepatitis B vaccine, adult dosage Generic Provider [facility] 10-03-2021 hepatitis B vaccine, pediatric or pediatric/adolescent dosage Generic Provider [facility] 09-24-2021 tuberculin skin test ; purified protein derivative solution, intradermal Generic Provider [facility] 09-17-2021 tuberculin skin test ; purified protein derivative solution, intradermal Generic Provider [facility] 11-14-2020 influenza, injectabl e, quadrivalent, contains preservative Generic [facility] 08-06-2020 tuberculin skin test ; purified protein derivative solution, intradermal Generic [facility] 07-30-2020 tuberculin skin test ; purified protein derivative solution, intradermal Generic Provider [facility] 11-23-2019 influenza, injectabl e, quadrivalent, contains preservative Generic [facility] 06-15-2019 tetanus toxoid, redu don diphtheria toxoid, and acellular pertussis vaccine, adsorbed Generic Provider [facility] 11-24-2018 seasonal influenza, intradermal, preservative free Generic [facility] 12-18-2017 seasonal influenza, intradermal, preservative free Generic Provider [facility] 12-08-2017 Influenza, injectabl e, Madin Eunice Canine Kidney, preservative free, quadrivalent Generic Provider [facility] 06-30-2016 influenza, injectabl e, quadrivalent, contains preservative Generic [facility] 05-25-2016 hepatitis A vaccine, pediatric/adolescent dosage, 2 dose schedule Generic Provider [facility] 03-04-2015 influenza, injectabl e, quadrivalent, preservative free Generic [facility] 02-15-2015 influenza, injectabl e, quadrivalent, preservative free Generic Provider [facility] 11-25-2012 hepatitis A vaccine, pediatric/adolescent dosage, 2 dose schedule Generic [facility] 05-25-2012 hepatitis A vaccine, pediatric/adolescent dosage, 2 dose schedule Generic Provider [facility] 05-25-2012 meningococcal polysa ccharide (groups A, C, Y and W-135) diphtheria toxoid conjugate vaccine (MCV4P) Generic Provider [facility] 05-25-2012 tetanus toxoid, redu don diphtheria toxoid, and acellular pertussis vaccine, adsorbed Generic Provider [facility] 05-25-2012 varicella virus vaccine Generic Prov ider [facility] 04-04-2012 HPV, unspecified formulation Generic Provider [facility] 02-02-2012 human papilloma viru s vaccine, quadrivalent Generic Provider [facility] 03-01-2010 human papilloma viru s vaccine, quadrivalent Generic Provider [facility] 09-05-2001 varicella virus vaccine Generic Prov ider [facility] 07-14-1999 Diphtheria, tetanus toxoids and acellular pertussis vaccine, and poliovirus vaccine, inactivated Generic Provider [facility] 07-14-1999 diphtheria, tetanus toxoids and acellular pertussis vaccine, unspecified formulation Generic Provider [facility] 07-14-1999 measles, mumps and r ubella virus vaccine Generic Provider [facility] 07-14-1999 trivalent poliovirus vaccine, live, oral Generic Provider [facility] 04-05-1995 DTaP-Haemophilus inf luenzae type b conjugate vaccine Generic Provider [facility] 04-05-1995 measles, mumps and r ubella virus vaccine Generic Provider [facility] 06-22-1994 diphtheria, tetanus toxoids and acellular pertussis vaccine, Haemophilus influenzae type b conjugate, and poliovirus vaccine, inactivated ([id number]) [facility] 06-22-1994 hepatitis B vaccine, adult dosage Generic Provider [facility] 04-06-1994 diphtheria, tetanus toxoids and acellular pertussis vaccine, Haemophilus influenzae type b conjugate, and poliovirus vaccine, inactivated (FEcR-Mee-HIR) Generic Provider [facility] 04-06-1994 hepatitis B vaccine, adult dosage Generic Provider [facility] 02-02-1994 diphtheria, tetanus toxoids and acellular pertussis vaccine, Haemophilus influenzae type b conjugate, and poliovirus vaccine, inactivated (GUoX-Abp-AVK) Generic Provider [facility] 02-02-1994 hepatitis B vaccine, adult dosage Generic Provider [facility] Payers Date Payer Category Payer [facility] (unspecified) [facility] [id number] 2024 Unknown [id number] 2024 Unknown [id number] 2024 Medicare [facility] [id number] 2023 Private Health Insurance [id number] 2023 Unknown [id number] 1993 Unknown [id number] .593 1993 Unknown [id number] [id number] .175 1993 Unknown [id number] [id number] .175 1993 Unknown [id number] 2.16.840.1.283210.3.579.2 .1286 1993 Unknown [id number] 2.16.840.1.760629.3.579.2 .1286 1993 Unknown [id number] 2.16.840.1.874740.3.579.2 .1286 1993 Unknown [id number] [id number] .1259 1993 Unknown [id number] 2.16.840.1.954905.3.579.2 .1259 1993 Unknown [id number] 2.16.840.1.525275.3.579.2 .1259 1993 Unknown [id number] 2.16.840.1.177925.3.579.2 .1259 1993 Unknown [id number] 2.16.840.1.251528.3.579.2 .1259 1993 Unknown [id number] 2.16.840.1.034685.3.579.2 .1259 1993 Unknown [id number] 2.16.840.1.769623.3.579.2 .1259 1993 Unknown [id number] [id number] .1259 1959 Unknown [id number] Unknown [id number] Social History Date Type Detail Facility Start: 08-24-2022 End: 04-14-2024 Tobacco smoking status [facility] Never smoked tobacco [facility] Start: 08-24-2022 End: 04-14-2024 Tobacco use and exposure Smokeless tobacco non-user [facility] Start: 08-30-2023 End: 03-07-2024 Alcoholic beverage intake Ex-drinker (finding) [facility] Start: 05-12-2023 End: 08-30-2023 History of Social function [facility] Start: 05-12-2023 End: 08-30-2023 Tobacco use panel [facility] The thought of harmi ng myself has occurred to me Never [facility] Start: 08-27-2022 Alcohol Comment caffeine: 1-2 cups/day [facility] Start: 1995 Sex assigned at Female [facility] Start: 08-17-2022 Gender identity Identifies as female gender (finding) [facility] Start: 02-24-2022 Sexual orientation Heterosexual (finding) [facility] Childcare Unknown [facility] Start: 10-07-2018 Alcohol Comment Occassional [facility] Start: 1993 Sex assigned at Not on file [facility] Start: 10-02-2014 Sex Female (finding) [facility] Start: 12-09-2023 [facility] Clinical Notes 02-24-2022 to 05-03-2024 Gautam Nolasco CNM - 05/03/2024 11:00 AM Louie Hathaway RN - 04/14/2024 12:30 PM Gael Albert MD - 04/14/2024 12:30 PM Ramandeep Sosa APRN-[facility] - 04/10/2024 1:57 PM EST Note Date & Type Note Facility 05-03-2024 History of Presen t illness Narrative Subjective No chief complaint on file. Kristen Garcia is a 28 y.o. at 22w6d with a working estimated date of delivery of 08/31/2024, by Ultrasound who presents for a routine visit. She denies vaginal bleeding, leakage of fluid, decreased movements, or contractions. OB History Para Term AB Living 6 4 4 1 3 SAB IAB Ectopic Multiple Live Births 1 3 # Outcome Date GA Lbr Van/2nd Weight Sex Type Anes PTL Lv 6 Current 5 Term 03/23/23 38w5d 8 lb 7 oz M Vag-Spont N BUBBA 4 Term 02/24/22 39w0d Vag-Spont 3 Term 09/04/19 39w0d Vag-Spont BUBBA 2 SAB 10/17/18 10w0d 1 Term 04/06/17 39w0d 8 lb 15 oz Vag-Spont BUBBA Her is complicated by: surrogate , subchor bleed , sees MFM The following portions of the chart were reviewed this encounter and updated as appropriate: Objective Physical Exam weight: 157 lb Expected Total Weight Gain: 25 lb-35 lb Pregravid BMI: 22.24 BP: 110/70 Urine protein-negative Urine glucose-negative Labs: reviewed Imaging Assessment/Plan Diagnoses and all orders for this visit: Encounter for supervision of other normal in second trimester Surrogate Subchorionic hematoma in second trimester, single or unspecified fetus Anxiety, generalized (CMS/HCC) Continue vitamin. Labs reviewed. Rhogam not needed, A+ positive GTT at 28 weeks Follow up in 2 weeks for a routine visit. documented in this encounter [facility] 04-14-2024 History of Presen t illness Narrative Headache/epigastric pain/blurry vision/swelling? No Cramping/contractions? No Abnormal vaginal discharge? Patient reports vaginal bleeding earlier in , has since resolved Spotting/vaginal bleeding? No Loss or gush of fluid like your water may have broken? No Do you have cats at home? No Do you change the litter box (reason: risk of toxoplasmosis)? N/A Genetic testing done this here or other office? Patient reports she believes PGT was done. NIPT done, patient has copy of results on phone Have you been seen here at [facility] in a previous ? No Recent ER visits or hospitalizations? No Bring blood sugar log or meter with you today? (Please bring them with you for every visit at [facility]) N/A Flu vaccine (Dec-April)? Yes Any concerns that you would like me to mention to the provider today? No REASON FOR CONSULTATION: Large subchorionic hematoma. HISTORY OF PRESENT ILLNESS: Kristen Garcia is a pleasant 28 y.o. G 6p 4-0 14. at 20w1d due on Estimated Date of Delivery: 08/31/24 . Patient was seen today due to the following 1. Large subchorionic hematoma. Patient denies any bleeding however she was bleeding earlier in the . 2. Choroid plexus cyst with low risk cell free DNA testing this is considered benign finding. 3. Maternal is a surrogate carrier. IVF with single embryo transfer. Patient opted for cell free DNA testing which has come back low risk. Currently the patient has no complaints. The patient denies nausea, vomiting, abdominal pain, vaginal bleeding, SOB or chest pain. Patient's PMH/PSH,SH,PSYCH Hx, MEDs, ALLERGIES, and ROS were all reviewed and updated in the appropriate sections. Patient Active Problem List Diagnosis Supervision of low-risk Circumvallate placenta 39 weeks gestation of Encounter for elective induction of labor Term hemorrhage Choroid plexus cyst of fetus affecting care of mother, antepartum, fetus 1 Subchorionic hematoma in second trimester Past Medical History: Diagnosis Date Anxiety Asthma EXERCISE INDUCED Chronic headache Depression History of depression In vitro fertilization Influenza 02/02/2022 flu A + Knee pain LEFT hemorrhage Tinnitus aurium, right PAST OBSTETRICAL HISTORY: OB History 6 Para 4 Term 4 0 AB 1 Living 4 SAB 1 IAB 0 Ectopic 0 Multiple 0 Live Births 4 SURGICAL HISTORY: Past Surgical History: Procedure Laterality Date D AND C SUCTION N/A 10/07/2018 Performed by Selene Ross MD at [facility]STEROS[facility] 04/29/2021 TRANSFER EMBRYO INTRAUTERINE 12/14/2023 ALLERGIES: No Known Allergies CURRENT MEDICATIONS: Current Outpatient Medications: prenat.vits,reema,jmk-whir-nqlka ( VITAMIN) tablet, Take 1 tablet by mouth daily., Disp: , Rfl: ferrous sulfate 325 (65 FE) mg tablet, Take 1 tablet (325 mg total) by mouth in the morning and 1 tablet (325 mg total) in the evening. Take with meals. (Patient not taking: Reported on 04/14/2024), Disp: 60 tablet, Rfl: 4 ibuprofen (ADVIL,MOTRIN) 800 mg tablet, Take 1 tablet (800 mg total) by mouth every 8 (eight) hours as needed (cramping). (Patient not taking: Reported on 04/14/2024), Disp: 30 tablet, Rfl: 0 FAMILY/GENETIC HISTORY: No family history of VTE, cardiac defects and mental retardation . SOCIAL HISTORY:Patient denies tobacco use, alcohol use, or drug use. RECENT HOSPITALIZATION: none I did review all the labs results available in addition to labs which were ordered by the primary care physician, and the other consultants, we search on [employer] and all the available care everywhere epic I did review all the imaging studies of the patient available on EMR, ordered by the primary care physician and the other sediment remediation consultant HABITS: Patient activity no restrictions, diet no restrictions REVIEW OF SYSTEM: Head and Neck: Negative for any dizziness and headaches. Cardiovascular and Respiratory System: Denies any chest pain, shortness of breath, and coughing. Abdominal and System: Denies any abdominal pain, nausea, vomiting, vaginal bleeding, and vaginal discharge Social Determinants of Health Financial Resource Strain: n Food Insecurity: n Transportation Needs: n Physical Activity: y Social Connections: y Intimate Partner Violence: n Housing Stability: y PHYSICAL EXAMINATION: BP 100/68 Pulse 86 Wt 66.8 kg (147 lb 3.2 oz) LMP 06/25/2022 BMI 23.76 kg/m . Gravid abdomen, Respirations not labored. Well oriented time place person, normal gait MEDICAL DECISION MAKING DISCUSSION: We started our discussion that choroid plexus cysts are well demarcated and echoic fluid filled structures within the choroid plexus of the lateral ventricle of the brain. CPCs are often called soft markers for aneuploidy most commonly for Trisomy 18 because some studies have found an association between them. However, in the presence of normal quadruple screen or cell-free DNA and normal anatomy, CPCs are considered a normal variant. We further discussed large subchorionic hematoma which increases the risk of premature rupture membranes and rest has been advised. Patient is not taking any NSAIDs. Patient informed to come to labor and delivery triage InCase of vaginal bleeding. RECOMMENDATION: 1. Large subchorionic hematoma seen on today's ultrasound. 2. Follow-up in 4 weeks for completion of targeted anatomy echocardiography. 3. Pelvic rest advised due to large subchorionic hematoma. 4. Serial growth ultrasounds every 4 weeks at her OB office. 5. Patient is a candidate for testing starting at 32 weeks gestation based on large subchorionic hematoma. 6. Delivery at term. Vaginal delivery Is to be anticipated with C section reserve for routine obstetrical indications. DISPOSITION: At this point the patient is in complete care of her it security specialist. Patient does have ultrasound scheduled with us. Thank you for allowing me to participate in Kristen Garcia . If there any questions please do not hesitate to contact us. Sincerely, BETO ALBERT MD documented in this encounter [facility] 04-10-2024 History of Presen t illness Narrative Insurance reviewed and re entered since patient emailed copy of her card. Insurance is in network. Patient notified of in-network status and to keep her appointment for 04/14/24. Patient denies any questions. BERKLEY Berkowitz 04/10/24 [id number] documented in this encounter [facility] 04-07-2024 History of Presen t illness Narrative Spoke with patient regarding insurance. She states she has [employer] place, not Medicare. Service Correspondent requests she send a picture of her card to senior grant writer's email. She will do so vani. Service Correspondent informed patient that this is still OON with [facility] and that she could be seen, but may acquire a large bill since this is OON. Service Correspondent will await card and notify patient after further investigation of kind of insurance. BERKLEY Berkowitz 04/07/24 [id number] documented in this encounter [facility] 04-05-2024 History of Presen t illness Narrative Subjective No chief complaint on file. Kristen Garcia is a 28 y.o. at 18w6d with a working estimated date of delivery of 08/31/2024, by Ultrasound who presents for a routine visit. She denies vaginal bleeding, leakage of fluid, decreased movements, or contractions. OB History Para Term AB Living 6 4 4 1 3 SAB IAB Ectopic Multiple Live Births 1 3 # Outcome Date GA Lbr Van/2nd Weight Sex Type Anes PTL Lv 6 Current 5 Term 03/23/23 38w5d 8 lb 7 oz M Vag-Spont N BUBBA 4 Term 02/24/22 39w0d Vag-Spont 3 Term 09/04/19 39w0d Vag-Spont BUBBA 2 SAB 10/17/18 10w0d 1 Term 04/06/17 39w0d 8 lb 15 oz Vag-Spont BUBBA Her is complicated by: The following portions of the chart were reviewed this encounter and updated as appropriate: Objective Physical Exam weight: 150 lb Expected Total Weight Gain: 25 lb-35 lb Pregravid BMI: 22.24 BP: 118/80 Urine protein-negative Urine glucose-negative Labs: reviewed Imaging Assessment/Plan Diagnoses and all orders for this visit: Encounter for supervision of other normal in second trimester Subchorionic hematoma in second trimester, single or unspecified fetus Anxiety, generalized (CMS/HCC) Surrogate Patient continues with modified bedrest. 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 Had US this morning and states the hematoma is shrinking and down to 5 cm now from 9 cm. US report stable Continue vitamin. Labs reviewed. Rhogam GTT at 28 weeks Follow up in 2 weeks for a routine visit. documented in this encounter [facility] 03-21-2024 History of Presen t illness Narrative Subjective No chief complaint on file. Kristen Garcia is a 28 y.o. at 16w5d with a working estimated date of delivery of 08/31/2024, by Ultrasound who presents for a routine visit. She denies vaginal bleeding, leakage of fluid, decreased movements, or contractions. OB History Para Term AB Living 6 4 4 1 3 SAB IAB Ectopic Multiple Live Births 1 3 # Outcome Date GA Lbr Van/2nd Weight Sex Type Anes PTL Lv 6 Current 5 Term 03/23/23 38w5d 8 lb 7 oz M Vag-Spont N BUBBA 4 Term 02/24/22 39w0d Vag-Spont 3 Term 09/04/19 39w0d Vag-Spont BUBBA 2 SAB 10/17/18 10w0d 1 Term 04/06/17 39w0d 8 lb 15 oz Vag-Spont BUBBA Her is complicated by: subchorionic bleed, patient states she is feeling flutters and having normal discharge no bleeding or discharge The following portions of the chart were reviewed this encounter and updated as appropriate: Objective Physical Exam weight: 144 lb Expected Total Weight Gain: 25 lb-35 lb Pregravid BMI: 22.24 BP: 118/80 Urine protein Urine glucose Labs: reviewed Imaging Assessment/Plan Diagnoses and all orders for this visit: Encounter for supervision of other normal in second trimester Subchorionic hematoma in second trimester, single or unspecified fetus Continue vitamin. Labs reviewed. Patient doing well. She states that she is staying home and resting and currently not working due to hematoma. Her is currently at home as well being a stay at home dad. Intended mom on video while we obtain heart tones and all questions answered. She is seeing [facility] on 04/14 for anatomy scan. She will continue w modified bedrest until results and report from [facility] are received. Follow up in 2 weeks for a routine visit. documented in this encounter [facility] 03-07-2024 History of Presen t illness Narrative Subjective Kristen Garcia is a 28 y.o. at 14w5d with a working estimated date of delivery of 08/31/2024, by Ultrasound who presents for an initial visit. This is planned. Patient Care Team: Laverne Dubon MD as PCP - General (Family Medicine) OB History Para Term AB Living 6 4 4 1 3 SAB IAB Ectopic Multiple Live Births 1 3 # Outcome Date GA Lbr Van/2nd Weight Sex Type Anes PTL Lv 6 Current 5 Term 03/23/23 38w5d 8 lb 7 oz M Vag-Spont N BUBBA 4 Term 02/24/22 39w0d Vag-Spont 3 Term 09/04/19 39w0d Vag-Spont BUBBA 2 SAB 10/17/18 10w0d 1 Term 04/06/17 39w0d 8 lb 15 oz Vag-Spont BUBBA Her is complicated by: surrogate History of bleed first trimester- subchorionic bleed Patient referred by Gynecology History Last Pap The following portions of the chart were reviewed this encounter and updated as appropriate: @BRIAN([id number],TOBYESPR OV)@@BRIAN([id number],ALGY ESPROV)@@RULESAdolfo ARTLINK([id number],MEDYESPROV)@@RU ELISA([id number],PROBYESPROV )@@ANA Andrews([id number],MHYESPROV)@@RULESRAÚL LINK([id number],SHYESPROV)@@RULESM ELAINALINK([id number], FHYESPROV)@@RULESMARTLINK([id number],SOHYESPROV)@ Review of Systems Negative except Objective Physical Exam weight: 142 lb Expected Total Weight Gain: 25 lb-35 lb Pregravid BMI: 22.24 Heart Rate: 156 per US Urine protein-negative Urine glucose-negative Labs Assessment/Plan Diagnoses and all orders for this visit: Anxiety, generalized (CMS/HCC) examination or test, positive result - Hepatitis B surface antigen; Future - Rubella antibody, IgG; Future - CBC; Future - Antibody screen; Future - RPR; Future - Hemoglobin A1c; Future - TSH W/REFLEX TO FT4; Future - HIV-1 and HIV-2 antibodies; Future - ABO/Rh; Future - DRUG TOX MONITORIGN 6 W/ CONF,URINE; Future - Hepatitis C antibody - Urine culture; Future - URINALYSIS MICROSCOPIC; Future - C. trachomatis / N. gonorrhoeae, DNA probe; Future - Ambulatory referral to Obstetrics / Gynecology; Future Encounter for supervision of other normal in second trimester Blue education folder given. Patient educated on safe medication list. Genetic testing information given. Discussed the do's and don'ts in the blue folder. We discussed labs and what we draw and what we are testing for. Patient is also informed that we do a urine drug test. Patient also given office phone number and The [facility] number to call in case of an emergency or after hours needs. PVU and all questions answered. 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 Patient should plan to go to [facility] for all services unless an emergency and they need to go to the closest ER. We can make other arrangements possibly if patient would like to deliver at another facility but I did explain I am now at [place] 100% of the time and would like to do all deliveries there. documented in this encounter [facility] 03-06-2024 Miscellaneous Notes Phone call to OB office to inquire if any genetic testing done yet or not. OB office has no results as of now. A note will be placed in records to fax genetic results to [facility] as available. documented in this encounter [facility] 03-06-2024 Telephone encounter Note Phone call to OB office to inquire if any genetic testing done yet or not. OB office has no results as of now. A note will be placed in records to fax genetic results to [facility] as available. [facility] 03-03-2024 Miscellaneous Notes Received patient call transferred from scheduling department. Patient has not yet been seen by MFM. Patient with questions/concerns regarding time of scheduled appointment. Patient scheduled for survey/echo on 04/14/24 but is concerned appointment should be scheduled sooner. Patient also requesting clarification on bed rest restrictions mentioned by OB. Reviewed information with Dr. Albert. Per Dr. Albert based on information received from OB, appointment date is appropriate. Attempted to contact [facility]. Office currently closed. Returned call to patient and explained Dr. Albert's recommendations. Encouraged patient to follow up with referring OB regarding questions for plan of care and restrictions. Patient agreeable and verbalizes understanding. documented in this encounter [facility] 03-03-2024 Telephone encounter Note Received patient call transferred from scheduling department. Patient has not yet been seen by MFM. Patient with questions/concerns regarding time of scheduled appointment. Patient scheduled for survey/echo on 04/14/24 but is concerned appointment should be scheduled sooner. Patient also requesting clarification on bed rest restrictions mentioned by OB. Reviewed information with Dr. Albert. Per Dr. Albert based on information received from OB, appointment date is appropriate. Attempted to contact [facility]. Office currently closed. Returned call to patient and explained Dr. Albert's recommendations. Encouraged patient to follow up with referring OB regarding questions for plan of care and restrictions. Patient agreeable and verbalizes understanding. [facility] [employer] 02-07-2024 History of Presen t illness Narrative [...] a viral illness. documented in this encounter [facility] 01-18-2024 History of Presen t illness Narrative Patient surrogate, positive and not released from clinic yet. She is not feeling well and [employer] where she works heard crackles on left side. She wanted me to prescribe the med as she is and recommended zpak RX sent to pharmacy. documented in this encounter [facility] 02-24-2022 Note FINDINGS: Comparison made with prior [...] Placenta Anterior Grade II Weight (g) by Lpnromevsr93.4 % * These measurements result in an [...] signed by Marvin Hamilton on 02/24/2022 [id number] [facility] Comptometrist Evaluation note Diagnosis Rhonchi- Primary Abnormal chest sounds [facility]* Diagnosis Viral URI with cough- Primary [facility]* Diagnosis Encounter for supervision of other normal in second trimester- Primary Subchorionic hematoma in second trimester, single or unspecified fetus [facility]* Diagnosis Encounter for supervision of other normal in second trimester- Primary Subchorionic hematoma in second trimester, single or unspecified fetus Anxiety, generalized (CMS/HCC) Surrogate [facility]* Diagnosis Choroid plexus cyst of fetus affecting care of mother, antepartum, single or unspecified fetus- Primary Surrogate [facility] Diagnosis Choroid plexus cyst of fetus affecting care of mother, antepartum, fetus 1- Primary Subchorionic hematoma in second trimester, single or unspecified fetus [facility] Diagnosis Anxiety, generalized (CMS/HCC)- Primary examination or test, positive result Encounter for supervision of other normal in second trimester [facility]* Diagnosis Encounter for supervision of other normal in second trimester- Primary Surrogate Subchorionic hematoma in second trimester, single or unspecified fetus Anxiety, generalized (CMS/HCC) documented in this encounter [facility] HealthcareInstructionsNot on filedocumented in this encounterProMedica [facility] SystemInstructionsNot on filedocumented in this encounterProMediPro[facility] SystemInstructionsNot on filedocumented in this encounterProMediin Health SystemInstructionsNot on filedocumented in this encounterProDiley [facility] System Summary Purpose Family History No Family History Records FoundNo Family History Records FoundNo Family History Records FoundNo Family History Records FoundNo Family History Records FoundNo Family History Records Found Advance Directives No Advanced Directives Records Found Date Activated Date Inactivated Comments 02/24/2022 1:25 PM 02/26/2022 2:51 PM Date Activated Date Inactivated Comments 09/04/2019 6:17 AM 09/05/2019 11:44 PM Date Activated Date Inactivated Comments 02/24/2022 1:25 PM 02/26/2022 2:51 PM Date Activated Date Inactivated Comments 09/04/2019 6:17 AM 09/05/2019 11:44 PM Additional Source Comments INFORMATION SOURCE (unrecogn ized section and content) DATE CREATED AUTHOR 02/24/[address] [facility] dical Specialist DATE CREATED AUTHOR AUTHOR'S ORGANIZ ATION 03/03/2022 [facility] DATE CREATED AUTHOR AUTHOR'S ORGANIZ ATION 12/18/2023 [facility] DATE CREATED AUTHOR AUTHOR'S ORGANIZ ATION 04/16/2024 [facility] DATE CREATED AUTHOR AUTHOR'S ORGANIZ ATION 05/15/2024 [facility] DATE CREATED AUTHOR AUTHOR'S ORGANIZ ATION 06/05/[address] [facility] dical Specialists EPIC Care Teams (unrecognized sec tion and content) Luncheonette Manager Relationship Specialty Start Date End Date Laverne Dubon MD [address] [place] [address] PCP - General Family Medicine 08/30/23 Luncheonette Manager Relationship Specialty Start Date End Date Laverne Dubon MD [address] [facility] [place] [address] PCP - General Family Medicine 08/30/23 Luncheonette Manager Relationship Specialty Start Date End Date Laverne Dubon MD [address] [facility] [place] [address] PCP - General Family Medicine 08/30/23 Luncheonette Manager Relationship Specialty Start Date End Date Laverne Dubon MD [address] [place] [address] PCP - General Family Medicine 08/30/23 Luncheonette Manager Relationship Specialty Start Date End Date Laverne Dubon MD [address] [place] [address] PCP - General Family Medicine 08/30/23 Luncheonette Manager Relationship Specialty Start Date End Date Leslie Bahena DO [address] [place] [address] PCP - General Family Medicine 01/28/21 Luncheonette Manager Relationship Specialty Start Date End Date Leslie Bahena DO [address] [place] [address] PCP - General Family Medicine 01/28/21 Luncheonette Manager Relationship Specialty Start Date End Date Laverne Dubon MD [address] [place] [address] PCP - General Family Medicine 08/30/23 Luncheonette Manager Relationship Specialty Start Date End Date Laverne Dubon MD [address] [place] [address] PCP - General Family Medicine 08/30/23 Luncheonette Manager Relationship Specialty Start Date End Date Leslie Bahena DO [address] [place] [address] PCP - General Family Medicine 01/28/21 Luncheonette Manager Relationship Specialty Start Date End Date Leslie Bahena DO [address] [place] [address] PCP - General Family Medicine 01/28/21 Luncheonette Manager Relationship Specialty Start Date End Date Laverne Dubon MD [address] [place] [address] PCP - General Family Medicine 08/30/23 Reason for Visit (unrecogniz ed section and content) Reason Comments URI Reason Comments Surrogate Subchorionic Hematoma FOR RECORDS PERTAINING TO PATIENTS WHO ARE [...] BE BASED ON THE PRIMARY CLINICAL RECORDS. [employer] provides no warranty or guarantee of the accuracy or completeness of information in this document.
[2024-06-10 05:58] VITALS: BP 110/76; PULSE 100
[2024-06-10 06:01] LABS: Bilirubin Urine NEGATIVE (NEGATIVE); Blood Urine TRACE-I (NEGATIVE); Clarity Urine CLEAR (CLEAR); Color Urine LT. YELLOW (YELLOW); Glucose Urine UA NEGATIVE (NEGATIVE); Ketones Urine NEGATIVE (NEGATIVE); Leukocyte Esterase Urine TRACE (NEGATIVE); Nitrite Urine NEGATIVE (NEGATIVE); Protein Urine NEGATIVE (NEG/TRACE); Urobilinogen Urine 0.2 EU/dL (0.2-1.0)
[2024-06-10 06:03] LABS: Urine Microscopic Indicated YES
[2024-06-10 06:10] LABS: Bacteria Urine TRACE #/HPF (NONE SEEN); Cast Seen? NONE SEEN #/LPF (NONE SEEN); Crystals Seen? None Seen #/HPF (None Seen); Mucus Urine NONE SEEN (NONE SEEN); RBC Urine 0-2 #/HPF (0-2); Squamous Epithelial Cell Urine MANY #/LPF (NONE/RARE); Urine Culture Indicated NO; WBC Urine 0-2 #/HPF (NONE SEEN)
[2024-06-10 06:33] LABS: Amnisure POSITIVE (NEGATIVE); Internal Control Within Normal Limits
[2024-06-10] MEDS: AMPICILLIN SODIUM 2,000 MG in 0.9 % SODIUM CHLORIDE 100 ML 200 MG IV (07:08)
[2024-06-10] MEDS: BETAMETHASONE ACE/BETAMETHASONE SOD PHOS 30 MG/5 ML 12 MG IM (07:08)
[2024-06-10] MEDS: LACTATED RINGER'S SOLUTION 1,000 ML 1000 ML IV (07:11)
[2024-06-10 07:13] LABS: Basophils Percent Auto 0.4 % (0.2-2.0); Eosinophils Absolute Auto 0.1 10^3/uL (0.0-0.7); Eosinophils Percent Auto 1.4 % (0.9-7.0); Hematocrit 33.8 % (36.0-48.0); Hemoglobin 11.5 g/dL (12.0-16.0); Immature Granulocytes Abs Auto 0.02 10^3/uL (0.00-0.03); Immature Granulocytes Pct Auto 0.3 % (0.0-0.5); Lymphocytes Absolute Auto 1.4 10^3/uL (1.2-3.8); Lymphocytes Percent Auto 20.1 % (20.5-60.0); Mean Corpuscular Hemoglobin 30.4 pg (26.7-34.0); Mean Corpuscular Volume 89.4 fL (81.0-99.0); Mean Platelet Volume 9.6 fL (9.5-13.5); Monocytes Absolute Auto 0.5 10^3/uL (0.3-0.8); Neutrophils Percent Auto 70.8 % (43.0-75.0); Platelet Count 330 10^3/uL (150-450); Red Blood Count 3.78 10^6/uL (4.20-5.40); Red Cell Distribution Width 13.4 % (11.0-15.0)
--- NOTE | 2024-06-10 07:57 | P.OBHP_ITS ---
OB - H&P: HPI History of Present Illness Chief complaint: Leakage of fluid : 6 Para: 4 Date of last menstrual period: 06/25/2022 Gestational age based on last menstrual period: 28.1 Narrative: This is a 28 y/o WF, , AOG 28 weeks and 1 day who presents with history of being awakened at 2:51 am today feeling wet. She went to the bathroom and continued to have fluid leaking. It was yellowish in color. She denies any contractions. She did have a sonogram yesterday and had a cervical length of 4 cm. This is her second surrogate by IVF. She states she had a similar episode at 11 weeks of leaking fluid. She also has a history of subchorionic hemorrhage at large as 9 cm but is has decreased to 4.3 x 1 cm yesterday by sonogram per pt. She is followed by MFM in [place], Dr. Barrera. History of Present Dating criteria: LMP confirmed by 1st trimester US (IVF) care: good care Ultrasounds: normal 1st trimester US and normal mid trimester US complications: other (Surrogate , subchorionic hemorrhage) Medical complications OB: none Labs Rubella: immune Review of Systems ROS Status of ROS: 10 or more systems reviewed and unremarkable except as noted in history and below PFSH PFSH Social History Little interest or pleasure in doing things: not at all Feeling down, depressed, or hopeless: not at all [facility] Active Problems (Updated 06/10/24 @ 08:56 by Miley Claire DO) premature rupture of membranes (PPROM) with unknown onset of labor (Acute) Surrogate in third trimester (Acute) Subchorionic hemorrhage in third trimester (Acute) UTI (urinary tract infection) (Acute) Subchorionic hemorrhage in first trimester (Acute) Vaginal bleeding during (Acute) Social History Little interest or pleasure in doing things: not at all Feeling down, depressed, or hopeless: not at all Meds Home Medications and Allergies Home Medications ?Medication ?Instructions ?Recorded ?Confirmed ?Type vit no.95-ferrous 1 tab PO DAILY 01/23/24 12/13/24 History fumarate 28 mg-folic acid 800 mcg tablet () cephalexin 500 mg capsule 500 mg PO BID 5 days #10 caps 02/11/24 Rx Allergies Allergy/AdvReac Type Severity Reaction Status Date / Time No Known Drug Allergies Allergy Verified 03/22/23 22:59 Exam Constitutional Vital Signs, click to edit/add: Last Vital Signs Pulse 100 H 06/10/24 05:58 Resp 16 06/10/24 05:58 BP 110/76 06/10/24 05:58 Common normals: no apparent distress, healthy appearing and well nourished General appearance: comfortable and well developed [facility] Common normals: normocephalic Eye Conjunctiva: conjunctiva(e) normal Sclera: sclerae normal Neck & C-Spine Common normals: no lymphadenopathy Respiratory Common normals: normal respiratory effort Auscultation: clear to auscultation bilaterally Cardio Common normals: regular rate, S1 normal heart sound, S2 normal heart sound, no gallops, no clicks and no murmurs GI Common normals: Normal to inspection, nondistended, normoactive bowel sounds present Palpation: soft Common normals: external appearance normal, appearance of the vagina normal and appearance of the cervix normal OB/external & speculum: external exam normal Amniotic Fluid: clear (and yellowish) Back & Pelvis Common normals: thoracic and lumbar spine normal to inspection Extremity Common normals: full ROM and no clubbing, cyanosis or edema Neuro Common normals: oriented x3 and no sensory deficits noted Sensorium/orientation: awake, oriented to person, oriented to place and oriented to time Speech: speech normal Psych Common normals: mental status grossly normal and cooperative Attitude: engaged Insight: insight good Judgement: judgment good Results Labs Labs: Short CBC 06/10/24 Range/Units 07:05 WBC 7.0 (4.0-11.0) 10^3/uL Hgb 11.5 L (12.0-16.0) g/dL Hct 33.8 L (36.0-48.0) % Plt Count 330 (150-450) 10^3/uL Urine 06/10/24 Range/Units 05:45 Urine Color Lt. yellow (YELLOW) Urine Clarity Clear (CLEAR) Urine pH 7.0 (5.0-9.0) Ur Specific [place] 1.010 (1.005-1.025) Urine Protein Negative (NEG/TRACE) mg/dL Urine Glucose (UA) Negative (NEGATIVE) mg/dL OB - A/P Assessment and Plan (1) premature rupture of membranes (PPROM) with unknown onset of labor: Assessment and Plan: Transfer to [facility] under care of Adolfo, Dr. Lutz (2) Surrogate in third trimester: (3) Subchorionic hemorrhage in third trimester:
[2024-06-10 08:21] VITALS: TEMP 36.7
[2024-06-10 08:22] VITALS: BP 102/57; PULSE 99
--- NOTE | 2024-06-10 09:22 | P.DS_ITS ---
DS: Providers Provider Date of admission: 06/10/24 05:38 Primary care physician: MANDA DUBON Admitting clinician: Miley Claire Attending physician on admission: Miley Claire Attending physician on discharge: Miley Claire Discharging clinician: Miley Claire Anticipated date of discharge: 06/10/24 DS: Diagnosis Discharge Diagnosis (1) premature rupture of membranes (PPROM) with unknown onset of labor: (2) Surrogate in third trimester: (3) Subchorionic hemorrhage in third trimester: OB - DS: Summary Hospital Course Hospital Course: This is a 28 y/o WF, , AOG 28 weeks and 1 days with c/o leakage of fluid at 2:51am. Amniosure was positive. She had visual leakage of fluid. She is not in labor. This is a surrogate . She has a known subchorionic hemorrhage. MFM was consulted and accepted the transfer of patient to [facility]. Status at Discharge Functional status at discharge: independent ambulation Time Spent with Patient Time attestation: Total time spent providing and/or coordinating discharge services: Time spent: less than 30 minutes Exam Constitutional Vital Signs, click to edit/add: Last Vital Signs Temp 98.1 F 06/10/24 08:21 Pulse 99 H 06/10/24 08:22 Resp 16 06/10/24 05:58 BP 102/57 06/10/24 08:22 DS: Data Data Completed and Pending Labs on day of discharge: Labs from last 24 hours 06/10/24 06/10/24 06/10/24 07:05 06:12 05:45 WBC 7.0 RBC 3.78 L Hgb 11.5 L Hct 33.8 L MCV 89.4 MCH 30.4 MCHC 34.0 RDW 13.4 Plt Count 330 MPV 9.6 Neut % (Auto) 70.8 Lymph % (Auto) 20.1 L [place] % (Auto) 7.0 Eos % (Auto) 1.4 Baso % (Auto) 0.4 Neut # (Auto) 5.0 Lymph # (Auto) 1.4 [place] # (Auto) 0.5 Eos # (Auto) 0.1 Baso # (Auto) 0.0 Abs Immat Gran (auto) 0.02 Imm/Tot Granulo (auto) 0.3 Urine Color Lt. yellow Urine Clarity Clear Urine pH 7.0 Ur Specific Printer 1.010 Urine Protein Negative Urine Glucose (UA) Negative Urine Ketones Negative Urine Occult Blood Trace-i Urine Nitrite Negative Urine Bilirubin Negative Urine Urobilinogen 0.2 Ur Leukocyte Esterase Trace A Urine RBC 0-2 Urine WBC 0-2 A Ur Squamous Epith Cells Many A Urine Crystals None seen Urine Bacteria Trace A Urine Casts None seen Urine Mucus None seen Ur Culture Indicated? No Placental [id number] Positive A Blood Type A Positive Antibody Screen Negative Discharge Plan Discharge Disposition: Xfer Acute Care Hospital Discharge Location: [facility]
== END 2024-06-10 09:30 | disposition short-term general hospital (02) ==
PROVIDERS: Admitting Provider Obstetrics & Gynecology; PCP Family Medicine; Visit Provider Obstetrics & Gynecology
DX: O42.913 Preterm premature rupture of membranes, unspecified as to length of time between rupture and onset of labor, third trimester (principal); O46.8X3 Other antepartum hemorrhage, third trimester; Z3A.28 28 weeks gestation of pregnancy; Z87.440 Personal history of urinary (tract) infections
CPT/HCPCS: 36415; 59025; 81001; 84112; 85025; 86850; 86900; 86901; 87070; 87081; 96365; 96372; G0378; G0379; J0290; J0702

== ENCOUNTER 2024-06-10 10:44 | Outpatient (REF) | payer OTHER, SELFPAY ==
--- OUTSIDE RECORDS SUMMARY | 2024-06-10 10:51 | XMS_ITS | CCD ---
Author Organization [facility] Informat ion Partnership [facility] Care Team Providers Care Solar Engineer Name Role Phone MARBELLA, DR RINCON Admitting Unavailable MARBELLA, DR RINCON Attending Unavailable MARBELLA, DR RINCNO Consulting Unavailable MARBELLA, DR RINCON Primary Care [...] Attending Unavailable FLORO, GAUTAM L Attending Unavailable LISAOMERONGAUTAM L Attending Unavailable LISAO, GAUTAM L Attending Unavailable Medications Current Medications Medication Drug Class(es) Dates Sig (Normalized) Sig (Original) 84 hr estradiol 0.64826 mg/hr transdermal system (4 sources) Estrogen Start: [...] 1 tablet by mouth once daily prenat.vits,reema,mi o-oonp-pksmx ( VITAMIN) tablet Take 1 tablet by [...] for multiple gestation pr egnancy limitedon 03-30-2024 [place] [address] Ultrasound Report Signed Patient: KRISTEN GARCIA MR#: [id number] : 1995 Acct:[id number] Age/Sex: 28 / F ADM Date: 03/30/24 Loc: US Attending Dr: GAUTAM NOLASCO APRN, CNM Ordering Physician: GAUTAM NOLASCO APRN, CNM Date of Service: 03/30/24 Procedure(s): US OB follow up Accession Number(s): [id number] cc: GAUTAM NOLASCO APRN, CNM; LAVERNE DUBON [address] [address] Patient Name: KRISTEN GARCIA MRN: [facility]:[id number] date: 1995 Sex: F Assigned Patient Location: US Current Patient Location: US Accession/Order Number: [id number] Exam Date: 03/30/2024 09:30 Report Date: 03/30/2024 [...] Signed By: 03/30/24 1058 DD/ 1056 TD/TT: Field Logistics Coordinator: [facility] Radiology, Radiologist, MD - 03/30/2024 [place] [address] Ultrasound Report Signed Patient: KRISTEN AGRCIA MR#: [id number] : 1995 Acct:[id number] Age/Sex: 28 / F ADM Date: 03/30/24 Loc: US Attending Dr: GAUTAM NOALSCO APRN, CNM Ordering Physician: GAUTAM NOLASCO APRN, CNM Date of Service: 03/30/24 Procedure(s): US OB follow up Accession Number(s): [id number] cc: GAUTAM NOLASCO APRN, CNM; LAVERNE DUBON The [address] [address] Patient Name: KRISTEN GARCIA MRN: [facility]:[id number] date: 1995 Sex: F Assigned Patient Location: US Current Patient Location: US Accession/Order Number: [id number] Exam Date: 03/30/2024 09:30 Report Date: 03/30/2024 [...] Signed By: 03/30/24 1058 DD/ 1056 TD/TT: Field Logistics Coordinator: [facility] Radiology Study observation (narrative) [facility] US for multiple gestation pr egnancy limitedOrdered By: Radiologist Radiology on 03-30-2024 [facility] Work Phone: Bacteria identified Cx Nom ( U)on 03-10-2024 Appearance (U) Adequate [facility] Internal identifier for Provider [id number] [facility] Specimen source Nom (Unsp spec) URINE [facility] STATUS FINAL [facility] Laboratory - Drug toxicology on 03-10-2024 1-Nwcohmvknh-9,5-Dimethy l-3,3-Diphenylpyrrolidin e (EDDP) Ql (U) Negative NINF - 100 ng/mL [facility] Amphetamines Ql (U) Negative NINF - 5 00 ng/mL [facility] Barbiturates Ql (U) Negative NINF - 3 00 ng/mL [facility] Healthcare Benzodiazepines Ql (U) Negative NINF - 100 ng/mL [facility] Benzoylecgonine Ql (U) Negative NINF - 150 ng/mL [facility] Opiates Ql (U) Negative NINF - 100 ng/mL [facility] oxyCODONE Ql (U) Negative NINF - 100 ng/mL [facility] Phencyclidine Ql (U) Negative NINF - 25 ng/mL [facility] Tetrahydrocannabinol Screen method >20 ng/mL Ql (U) Negative NINF - 20 ng/mL [facility] Laboratory - Microbiology an d Antimicrobial susceptibilityon 03-10-2024 Bacteria identified Cx Nom (U) SEE NOTE [facility] Comment on above: No Growth Laboratory - Miscellaneous t estson 03-10-2024 Service comment (Unsp spec) [Interp] [facility] Comment on above: This urine was bon zed for the presence of WBC, RBC, bacteria, casts, and other formed elements. Only those elements seen were reported. Laboratory - Urinalysison Bacteria LM.HPF (Urine sed) [#/Area] FEW Abnormal NONE SEEN /HPF [facility] Calcium oxalate crystals LM.HPF (Urine sed) [#/Area] FEW NONE OR FEW /HPF [facility] Epithelial cells.squamous LM.HPF (Urine sed) [#/Area] 6-10 Abnormal < OR = 5 /HPF [facility] WBC LM.HPF (Urine sed) [#/Area] 0-5 < OR = 5 /HPF [facility] N. gonorrhoeae DNA WAN+probe Ql (Cervical mucus)on 03-10-2024 C. trachomatis rRNA WAN+probe Ql (Unsp spec) Not detected NOT DETECTED [facility] N. gonorrhoeae rRNA WAN+probe Ql (Unsp spec) Not detected NOT DETECTED [facility] No Panel Informationon 03-10 (ALWAYS MESSAGE) [facility] Comment on above: See Note 1 Note 1 This drug testing is for medical treatment only. Analysis was performed as non-forensic testing and these results should be used only by healthcare providers to render diagnosis or treatment, or to monitor progress of medical conditions. For assistance with interpreting these drug results, please contact a [employer] [facility] Toxicology Specialist: [phone] ( ), M-F, 8am-6pm EST. The analytical perfo rmance characteristics of this assay, when used to test SurePath(TM) specimens have been determined by [employer] [facility]. The modifications have not been cleared or approved by the FDA. This assay has been validated pursuant to the CLIA regulations and is used for clinical purposes. For additional information, please refer to https://education.kalidea/faq/YCM754 (This link is being provided for information/ educational purposes only.) Interpretation and review of laboratory results Abnormal [facility] Information Site ID: QPT Name: [facility] Address: [address] [place] [id number] Director: Ramírez Zacarias MD [facility] Organization Information Site ID: QTW Name: [facility] Address: [address] [place] [phone] Director: Aurelia Gloria [facility] CBC panel Auto (Bld)on 03-08 Erythrocyte distribution width (RBC) [Ratio] 12.9 % 11.0 - 15.0 % [facility] Hematocrit (Bld) [Volume fraction] 39.6 % 35.0 - 45.0 % [facility] Hemoglobin (Bld) [Mass/Vol] 13 g/dL 11.7 - 15.5 g/dL [facility] Interpretation and review of laboratory results Abnormal [facility] MCH (RBC) [Entitic mass] 29.5 pg 27. 0 - 33.0 pg [facility] MCHC (RBC) [Mass/Vol] 32.8 g/dL 32.0 - 36.0 g/dL [facility] Comment on above: For adults, a slight decrease in the calculated MCHC value (in the range of 30 to 32 g/dL) is most likely not clinically significant; however, it should be interpreted with caution in correlation with other red cell parameters and the patient's clinical condition. MCV (RBC) [Entitic vol] 90 fL 80.0 - 100.0 fL [facility] Platelet mean volume (Bld) [Entitic vol] 9.7 fL 7.5 - 12.5 fL [facility] Platelets (Bld) [#/Vol] 429 10*3/uL High [facility] RBC (Bld) [#/Vol] 4.4 10*6/uL [facility] WBC (Bld) [#/Vol] 8.1 10*3/uL [facility] Laboratory - Blood bankon ABO group Nom (Bld) A [facility] Blood group antibody screen Ql Detected [facility] Comment on above: Reference range No antibodies detected This assay is a screening test for the detection of red blood cell antibodies. The test is not to be used for pretransfusion screening or for the medical management of an alloimmunized . Rh Nom (Bld) Positive [facility] Comment on above: For additional information, please refer to http://Paradigm Solar.IDx/faq/DRX088 (This link is being provided for informational/ educational purposes only.) Laboratory - Chemistry and C hemistry - challengeon 03-08-2024 TSH Qn 0.64 m[IU]/L mIU/L [facility] Comment on above: Reference Range > or = 20 Years 0.40-4.50 Ranges First trimester 0.26-2.66 Second trimester 0.55-2.73 Third trimester 0.43-2.91 Laboratory - Hematology and Cell countson 03-08-2024 HbA1c (Bld) [Mass fraction] 4.8 % NINF [facility] Comment on above: For the [...] diagnosis of diabetes in children. According to [place] Diabetes Association (ADA) guidelines, hemoglobin A1c <7.0% represents optimal control in non- diabetic patients. Different metrics may apply to specific patient populations. Standards of Medical Care in Diabetes(ADA). Laboratory - Microbiology an d Antimicrobial susceptibilityon 03-08-2024 HBV surface Ag IA Ql Non-Reactive NON-REACTIVE [facility] Comment on above: For additional information, please refer to http://Bioscale/faq/GUX356 (This link is being provided for informational/ educational purposes only.) HCV Ab IA Ql Non-Reactive NON-REACTIVE [facility] Comment on above: HCV antibody was non-reactive. There is no laboratory evidence of HCV infection. In most cases, no further action is required. However, if recent HCV exposure is suspected, a test for HCV RNA (test code 74637) is suggested. For additional information please refer to http://Paradigm Solar.kalidea/faq/ZQK32q2 (This link is being provided for informational/ educational purposes only.) HIV 1+2 Ab+HIV1 p24 Ag IA Ql Non-Reactive NON-REACTIVE [facility] Comment on above: HIV-1 antigen [...] purpose. For additional information please refer to http://education.kalidea/faq/POH257 (This link is being provided for informational/ educational purposes only.) The performance of this assay has not been clinically validated in patients less than 2 years old. Reagin Ab RPR Ql (S) Non-Reactive NON-REACTIVE [facility] Rubella virus IgG Qn (S) 1.89 [IU]/mL Index [facility] Comment on above: Index Interpretation ----- <0.90 Not consistent with immunity 0.90-0.99 Equivocal > or = 1.00 Consistent with immunity The presence of rubella IgG antibody suggests immunization or past or current infection with rubella virus. No Panel Informationon 03-08 MULTIPLE COLLECTION TIMES FOR SAME TEST TYPE. [employer] Organization Information Site ID: QPT Name: [facility] Address: [address] [place] [phone] Director: Ramírez Zacarias MD [facility] ALL PROGESTERONEon 4 PT PROGESTERONE 47.9 ng/mL [facility] Comment on above: Female: Follicular phase <0.19 ng/mL Ovulation phase 0.06-4.14 ng/mL Luteal phase 4.11-14.5 ng/mL Postmenopausal <0.13 ng/mL Estradiolon 12-16-2023 Estradiol 459.0 pg/mL Normal [facility] Comment on above: Result Comment: FEMALES: Normally menstruating Luteal phase 60-232 Follicular phase 31-90 Midcycle phase 60-533 Postmenopausal (untreated) <138 Fulvestrant treatment will show an increased estradiol concentration with this methodology. Alternate methodologies are available upon request. Performed By: #### E 2, PROG #### [address] [place], [place] [id number] Patient Ambassador: Saemer May MD MHPT ESTRADIOLon 12-16-2023 PT ESTRADIOL 459 pg/mL [facility] Comment on above: FEMALES: Normally menstruating Luteal phase 60-232 Follicular phase 31-90 Midcycle phase 60-533 Postmenopausal (untreated) <138 Fulvestrant treatment will show an increased estradiol concentration with this methodology. Alternate methodologies are available upon request. No Panel Informationon 12-15 Original Ordering Provider: KEMAR DE SANTIAGO MD [facility] Progesteroneon 12-16-2023 Progesterone 47.90 ng/mL Normal [facility] Comment on above: Result Comment: Female: Follicular phase <0.19 ng/mL Ovulation phase 0.06-4.14 ng/mL Luteal phase 4.11-14.5 ng/mL Postmenopausal <0.13 ng/mL Performed By: #### E 2, PROG #### [address] [place], [place] [id number] Patient Ambassador: Sameer May MD ALL HCG, QUANTITATIVEon 09 PT HCG, QUANT <0.2 [facility] Comment on above: Non-preg premeno <=5 Postmeno <=8 Male <=3 If HCG results do not concur with clinical observations, additional testing to confirm results is recommended. Original Ordering Provider: KEMAR DE SANTIAGO MD [facility] HCG, Quanton 11-02-2023 HCG, Quant <0.2 Normal 0-7 [facility] Comment on above: Result Comment: Non-preg premeno <=5 Postmeno <=8 Male <=3 If HCG results do not concur with clinical observations, additional testing to confirm results is recommended. 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 Driver Operator OB [facility] 12-22-2021 US OB Growth FINDINGS: [...] by Marvin Hamilton on 12/23/2021 0940 Normal [facility] Electric Screw Driver Operator US OB 2nd/3rd Trimesteron OB 2nd/3rd Trimester [...] and signed by Marvin Hamilton on 10/14/2021 0901 Normal [facility]ist Vital Signs Date Time Vital Sign Value Performing Clinician Facility 05-03-2024 11:03-0500 Body mass index (BMI) [Ratio] 24.59 kg/m2 Gautam Nolasco CNM Work Phone: [facility] 05-03-2024 11:03-0500 Body weight 71.22 kg Gautam Floro CNM Work Phone: [facility] 05-03-2024 11:03-0500 Diastolic blood pressure 70 mm[Hg] Gautam Floro CNM Work Phone: [facility] 05-03-2024 11:03-0500 Systolic blood pressure 110 mm[Hg] Gautam Floro CNM Work Phone: [facility] 04-14-2024 11:41-0500 Body mass index (BMI) [Ratio] 23.76 kg/m2 Beto Albert MD Work Phone: [facility] 04-14-2024 11:41-0500 Body weight 66.77 kg Beto Albert MD Work Phone: [facility] 04-14-2024 11:41-0500 Diastolic blood pressure 68 mm[Hg] Beto Albert MD Work Phone: [facility] 04-14-2024 11:41-0500 Heart rate 86 /min Beto Albert MD Work Phone: [facility] 04-14-2024 11:41-0500 Systolic blood pressure 100 mm[Hg] Beto Albert MD Work Phone: [facility] 04-05-2024 11:24-0500 Body mass index (BMI) [Ratio] 23.49 kg/m2 Gautam Floro CNM Work Phone: [facility] 04-05-2024 11:24-0500 Body weight 68.04 kg Gautam Floro CNM Work Phone: [facility] 04-05-2024 11:24-0500 Diastolic blood pressure 80 mm[Hg] Gautam Floro CNM Work Phone: [facility] 04-05-2024 11:24-0500 Systolic blood pressure 118 mm[Hg] Gautam Floro CNM Work Phone: [facility] 03-21-2024 13:20-0500 Body mass index (BMI) [Ratio] 22.55 kg/m2 Gautam Lisao CNM Work Phone: [facility] 03-21-2024 13:20-0500 Body weight 65.32 kg Gautam Lisao CNM Work Phone: [facility] 03-21-2024 13:20-0500 Diastolic blood pressure 80 mm[Hg] Gautam Lisao CNM Work Phone: [facility] 03-21-2024 13:20-0500 Systolic blood pressure 118 mm[Hg] Gautam Lisao CNM Work Phone: [facility] 03-07-2024 16:02-0500 Body mass index (BMI) [Ratio] 22.24 kg/m2 Gautam Gonzalezo CNM Work Phone: [facility] 03-07-2024 16:02-0500 Body weight 64.41 kg Gautam Gonzalezo CNM Work Phone: [facility] 02-07-2024 13:31-0500 Body height 170.2 cm Heidi Sarah CAR RENTAL CLERK Work Phone: [facility] 02-07-2024 13:31-0500 Body mass index (BMI) [Ratio] 22.71 kg/m2 Heidi Sarah CAR RENTAL CLERK Work Phone: [facility] 02-07-2024 13:31-0500 Body temperature 97.81 [degF] Hiedi Sarah CAR RENTAL CLERK Work Phone: [facility] 02-07-2024 13:31-0500 Body weight 65.77 kg Heidi Hesteravel CAR RENTAL CLERK Work Phone: [facility] 02-07-2024 13:31-0500 Diastolic blood pressure 60 mm[Hg] Heidi Smith CAR RENTAL CLERK Work Phone: [facility] 02-07-2024 13:31-0500 Heart rate 110 /min Heidi Smith CAR RENTAL CLERK Work Phone: [facility] 02-07-2024 13:31-0500 SaO2% (BldA) [Mass fraction] 99 % Heidi Smith CAR RENTAL CLERK Work Phone: [facility] 02-07-2024 13:31-0500 Systolic blood pressure 118 mm[Hg] Heidi Smith CAR RENTAL CLERK Work Phone: [facility] Healthcare Encounters Encounter Date Encounter Type Care Provider Facility Start: 05-31-2024 End: 05-31-2024 Bamboo flowsheet Gautam L Floro CNM Work Phone: [facility] Start: 05-31-2024 End: 05-31-2024 Bamboo flowsheet Gautam L Floro CNM Work Phone: [facility] Start: 05-31-2024 End: 05-31-2024 ambulatory GAUTAM L FLORO Not Available Start: 05-12-2024 End: 05-12-2024 ambulatory [facility] Start: 05-03-2024 End: 05-03-2024 Bamboo [...] Hinojosa MD Work Phone: [facility] [place] Comment on above: Choroid plexus cyst of fetus affecting care of mother, antepartum, fetus 1 (Primary Dx); Subchorionic hematoma in second trimester, single or unspecified fetus Start: 04-14-2024 End: 04-14-2024 Orders Only Yun Hathaway RN [facility] [place] Comment on above: Choroid plexus cyst of fetus affecting care of mother, antepartum, single or unspecified fetus (Primary Dx); Surrogate Start: 04-10-2024 End: 04-10-2024 Documentation procedure Davina Sosa FACTORY FOCUS TECHNICIAN-CNM Work Phone: [facility] [place] Start: 04-07-2024 End: 04-07-2024 Documentation procedure Davina Sosa FACTORY FOCUS TECHNICIAN-CNM Work Phone: [facility] [place] Start: 04-05-2024 End: 04-05-2024 Bamboo flowsheet Gautam [...] Hinojosa MD Work Phone: [facility] [place] Start: 03-06-2024 End: 03-06-2024 Telephone encounter Alondra Eduardo RN [facility] [place] Start: 03-03-2024 End: 03-03-2024 Telephone encounter Yun Hathaway RN [facility] [place] Start: 02-07-2024 End: 02-07-2024 Bamboo flowsheet Heidi Smith CAR RENTAL CLERK Work Phone: [facility] Start: 02-07-2024 End: 02-07-2024 Bamboo flowsheet Heidi Smith CAR RENTAL CLERK Work Phone: [facility] Start: 02-07-2024 End: 02-07-2024 Office outpatient visit 15 minutes Heidi Smith CAR RENTAL CLERK Work Phone: [facility] Comment on [...] Unsolicited Start: 12-16-2023 End: 12-16-2023 [facility] Start: 11-02-2023 End: 11-02-2023 ambulatory [facility] Start: 11-02-2023 End: 11-02-2023 Encounter for preprocedural laboratory examination [facility] Start: 11-02-2023 End: 11-02-2023 [facility] Result Encounter Generic External Data Provider [facility] External Department Unsolicited Start: 11-02-2023 End: 11-02-2023 [facility] Result Encounter Generic External Data Provider [facility] External Department Unsolicited Start: 08-30-2023 End: 08-30-2023 ambulatory HEIDI HESTERPFER Not Available Start: 06-23-2023 End: 06-23-2023 ambulatory GATUAM GONZALEZO Not Available Start: 02-28-2020 End: 02-28-2020 [...] screen rbc each serum technique Gautam Hunter Gonzalzeo CNM Work Phone: Start: 03-07-2024 Hemoglobin glycosyla lukas a1c Gautam Gonzalezo CNM Work Phone: Start: [...] Td Vaccines (8 - Td or Tdap) [facility] Start: 07-09-2027 Screening for malign ant neoplasm of cervix [facility] Start: 04-14-2025 Adult BMI Screening Adult BMI Screen ing [facility] Start: 04-14-2025 Tobacco Screening Tobacco Screening [facility] Start: 04-14-2025 End: 04-14-2025 US MFM with [...] EDT Office Visit [facility] [address] [place] [phone] Gautam Nolasco, [facility] [address] [place], [place] [phone] [facility] Start: 05-31-2024 End: 05-31-2024 Patient encounter procedure [facility] Comment on above: Arrived Start: 05-12-2024 End: 05-12-2024 Patient encounter procedure 05/12/2024 11:00 AM EDT Appointment [facility] [address] [facility] [place] [phone] [facility] Start: 05-03-2024 End: 05-03-2024 Patient encounter procedure [facility] Comment on above: Arrived Start: 04-14-2024 End: 04-14-2024 Patient encounter procedure [facility] Start: 04-05-2024 End: 04-05-2024 Patient encounter procedure 04/05/2024 1:30 PM EST Routine [facility] [address] [place] [phone] Gautam Nolasco, [facility] [address] [place], [place] [phone] [facility] Start: 04-05-2024 End: 04-05-2024 Patient encounter procedure [facility] Comment on above: Arrived Start: 03-21-2024 End: 03-21-2024 Patient encounter procedure 03/21/2024 1:30 PM EST Routine [facility] [address] [facility] [place] [address] Gautam Nolasco, CN [address] [facility] [place] [address] Arrived [facility] Comment on above: Arrived Start: 03-07-2024 End: 03-07-2024 ambulatory 03/07/2024 4:15 PM EST Initial [facility] [address] [place] [address] Gautam Nolasco, CN [address] [facility] [place] [address] Arrived [facility] Comment on above: Arrived Start: 02-07-2024 End: 02-07-2024 Patient encounter procedure 02/07/2024 1:30 PM EST Office Visit [facility] [address] [place] [phone] Heidi Smith NP [address] [facility] [place] [address] Arrived [facility] Comment on above: Arrived Start: 10-31-2023 COVID-19 Vaccine ( season) COVID-19 Vaccine ( season) [facility] Start: 10-31-2023 Influenza vaccination [facility] Start: 02-24-2023 Adult BMI Screening Adult BMI Screen ing [facility] Start: 2014 Screening for malign ant neoplasm of cervix Pap Smear [facility] Start: 2005 Depression Screening Depression Scre ening [facility] Start: 2005 Tobacco Screening Tobacco Screening [facility] Immunizations Immunization Date Immunization Notes Care Provider Fa cility 11-19-2022 influenza, seasonal, injectable Generic Provider [facility] 11-19-2022 influenza virus vacc ine, unspecified formulation Generic Provider [facility] 04-06-2022 hepatitis B vaccine, adult dosage Generic Provider [facility] 04-06-2022 measles, mumps and r ubella virus vaccine Generic Provider [facility] 03-06-2022 measles, mumps and r ubella virus vaccine Generic Provider [facility] 12-05-2021 hepatitis B vaccine, adult dosage Generic Provider [facility] 12-05-2021 influenza, injectabl e, quadrivalent, preservative free Generic Provider [facility] 10-03-2021 hepatitis B vaccine, adult dosage Generic Provider [facility] 10-03-2021 hepatitis B vaccine, pediatric or pediatric/adolescent dosage Generic Provider [facility] 09-24-2021 tuberculin skin test ; purified protein derivative solution, intradermal Generic Provider [facility] 09-17-2021 tuberculin skin test ; purified protein derivative solution, intradermal Generic Provider [facility] 11-14-2020 influenza, injectabl e, quadrivalent, contains preservative Generic [facility] 08-06-2020 tuberculin skin test ; purified protein derivative solution, intradermal Generic [facility] 07-30-2020 tuberculin skin test ; purified protein derivative solution, intradermal Generic Provider [facility] 11-23-2019 influenza, injectabl e, quadrivalent, contains preservative Generic [facility] 06-15-2019 tetanus toxoid, redu don diphtheria toxoid, and acellular pertussis vaccine, adsorbed Generic Provider [facility] 11-24-2018 seasonal influenza, intradermal, preservative free Generic [facility] 12-18-2017 seasonal influenza, intradermal, preservative free Generic Provider [facility] 12-08-2017 Influenza, injectabl e, Madin Eunice Canine Kidney, preservative free, quadrivalent Generic Provider [facility] 06-30-2016 influenza, injectabl e, quadrivalent, contains preservative Generic [facility] 05-25-2016 hepatitis A vaccine, pediatric/adolescent dosage, 2 dose schedule Generic Provider [facility] 03-04-2015 influenza, injectabl e, quadrivalent, preservative free Generic [facility] 02-15-2015 influenza, injectabl e, quadrivalent, preservative free Generic Provider [facility] 11-25-2012 hepatitis A vaccine, pediatric/adolescent dosage, 2 dose schedule Generic [facility] 05-25-2012 hepatitis A vaccine, pediatric/adolescent dosage, 2 dose schedule Generic Provider [facility] 05-25-2012 meningococcal polysa ccharide (groups A, C, Y and W-135) diphtheria toxoid conjugate vaccine (MCV4P) Generic Provider [facility] 05-25-2012 tetanus toxoid, redu don diphtheria toxoid, and acellular pertussis vaccine, adsorbed Generic Provider [facility] 05-25-2012 varicella virus vaccine Generic Prov ider [facility] 04-04-2012 HPV, unspecified formulation Generic Provider [facility] 02-02-2012 human papilloma viru s vaccine, quadrivalent Generic Provider [facility] 03-01-2010 human papilloma viru s vaccine, quadrivalent Generic Provider [facility] 09-05-2001 varicella virus vaccine Generic Prov ider [facility] 07-14-1999 Diphtheria, tetanus toxoids and acellular pertussis vaccine, and poliovirus vaccine, inactivated Generic Provider [facility] 07-14-1999 diphtheria, tetanus toxoids and acellular pertussis vaccine, unspecified formulation Generic Provider [facility] 07-14-1999 measles, mumps and r ubella virus vaccine Generic Provider [facility] 07-14-1999 trivalent poliovirus vaccine, live, oral Generic Provider [facility] 04-05-1995 DTaP-Haemophilus inf luenzae type b conjugate vaccine Generic Provider [facility] 04-05-1995 measles, mumps and r ubella virus vaccine Generic Provider [facility] 06-22-1994 diphtheria, tetanus toxoids and acellular pertussis vaccine, Haemophilus influenzae type b conjugate, and poliovirus vaccine, inactivated ([id number]) [facility] 06-22-1994 hepatitis B vaccine, adult dosage Generic Provider [facility] 04-06-1994 diphtheria, tetanus toxoids and acellular pertussis vaccine, Haemophilus influenzae type b conjugate, and poliovirus vaccine, inactivated ([id number]) Generic Provider [facility] 04-06-1994 hepatitis B vaccine, adult dosage Generic Provider [facility] 02-02-1994 diphtheria, tetanus toxoids and acellular pertussis vaccine, Haemophilus influenzae type b conjugate, and poliovirus vaccine, inactivated ([id number]) Generic Provider [facility] 02-02-1994 hepatitis B vaccine, adult dosage Generic Provider [facility] Payers Date Payer Category Payer [facility] (unspecified) [facility] [id number] 2024 Unknown [id number] 2024 Unknown [id number] 2024 [place] [facility] [id number] 2023 Private Health Insurance [id number] 2023 Unknown [id number] 1993 Unknown [id number] 2.16.840.1.740007.3.579.2 .593 1993 Unknown [id number] 2.16.840.1.032897.3.579.2 .175 1993 Unknown [id number] 2.16.840.1.812248.3.579.2 .175 1993 Unknown [id number] 2.16.840.1.576930.3.579.2 .1286 1993 Unknown [id number] 2.16.840.1.985622.3.579.2 .1286 1993 Unknown [id number] 2.16.840.1.331531.3.579.2 .1286 1993 Unknown [id number] 2.16.840.1.045165.3.579.2 .1259 1993 Unknown [id number] 2.16.840.1.337057.3.579.2 .1259 1993 Unknown [id number] 2.16.840.1.006796.3.579.2 .1259 1993 Unknown [id number] 2.16.840.1.464759.3.579.2 .1259 1993 Unknown [id number] 2.16.840.1.276967.3.579.2 .1259 1993 Unknown [id number] 2.16.840.1.955401.3.579.2 .1259 1993 Unknown [id number] 2.16.840.1.527153.3.579.2 .1259 1993 Unknown [id number] 2.16.840.1.507132.3.579.2 .1259 1959 Unknown [id number] Unknown [id number] Social History Date Type Detail Facility Start: 08-24-2022 End: 04-14-2024 Tobacco smoking status [facility] Never smoked tobacco [facility] Start: 08-24-2022 End: 04-14-2024 Tobacco use and exposure Smokeless tobacco non-user [facility] Start: 08-30-2023 End: 03-07-2024 Alcoholic beverage intake Ex-drinker (finding) [facility] Start: 05-12-2023 End: 08-30-2023 History of Social function [facility] Start: 05-12-2023 End: 08-30-2023 Tobacco use panel [facility] The thought of harmi ng myself has occurred to me Never [facility] Start: 08-27-2022 Alcohol Comment caffeine: 1-2 cups/day [facility] Start: 1995 Sex assigned at Female [facility] Start: 08-17-2022 Gender identity Identifies as female gender (finding) [facility] Start: 02-24-2022 Sexual orientation Heterosexual (finding) [facility] Childcare Unknown [facility] Start: 10-07-2018 Alcohol Comment Occassional [facility] Start: 1995 Sex assigned at Not on file [facility] Start: 10-02-2014 Sex Female (finding) [facility] Start: 12-09-2023 [facility] Clinical Notes 02-24-2022 to 05-03-2024 Gautam Nolasco CNM - 05/03/2024 11:00 AM Louie Hathaway RN - 04/14/2024 12:30 PM Gael Albert MD - 04/14/2024 12:30 PM Ramandeep Sosa APRN-[facility] - 04/10/2024 1:57 PM EST Note Date [...] a routine visit. documented in this encounter [facility] 04-14-2024 History of Presen t [...] phone Have you been seen here at [facility] in a previous ? No Recent ER visits or hospitalizations? No Bring blood sugar log or meter with you today? (Please bring them with you for every visit at [facility]) N/A Flu vaccine (Dec-April)? 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 Patient does have ultrasound scheduled with us. Thank you for allowing me to participate in Kristen Garcia . If there any questions please do not hesitate to contact us. Sincerely, BETO ALBERT MD documented in this encounter [facility] 04-10-2024 History of Presen t illness Narrative Insurance reviewed and re entered since patient emailed copy of her card. Insurance is in network. Patient notified of in-network status and to keep her appointment for 04/14/24. Patient denies any questions. BERKLEY Berkowitz 04/10/24 1359 documented in this encounter [facility] 04-07-2024 History of Presen t illness Narrative Spoke with patient regarding insurance. She states she has [employer] place, not Medicare. 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 She will do so vani. [employer] informed patient that this is still OON with [facility] and that she could be seen, but may acquire a large bill since this is OON. [employer] will await card and notify patient after further investigation of kind of insurance. BERKLEY Berkowitz 04/07/24 1150 documented in this encounter [facility] 04-05-2024 History of Presen t illness Narrative [...] a routine visit. documented in this encounter [facility] 03-21-2024 History of Presen t [...] and all questions answered. She is seeing [facility] on 04/14 for anatomy scan. She will continue w modified bedrest until results and report from [facility] are received. Follow up in 2 weeks for a routine visit. documented in this encounter [facility] 03-07-2024 History of Presen t [...] reviewed this encounter and updated as appropriate: @BRIAN([id number],TOBYESPR OV)@@BRIAN([id number],ALGY ESPROV)@@RULESAdolfo ARTLINK([id number],MEDYESPROV)@@RU ELISA([id number],PROBYESPROV )@@ANA Andrews([id number],MHYESPROV)@@RULESRAÚL LINK([id number],SHYESPROV)@@RULESM ELAINALINK([id number], FHYESPROV)@@RULESMARTLINK([id number],SOHYESPROV)@ Review of Systems Negative except [...] also given office phone number and [facility] number to call in case of an emergency or after hours needs. PVU and all questions answered. 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 Patient should plan to go to [facility] for all services unless an emergency and they need to go to the closest ER. 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 documented in this encounter [facility] 03-06-2024 Miscellaneous Notes Phone call to OB office to inquire if any genetic testing done yet or not. OB office has no results as of now. A note will be placed in records to fax genetic results to [facility] as available. documented in this encounter [facility] 03-06-2024 Telephone encounter Note Phone call to OB office to inquire if any genetic testing done yet or not. OB office has no results as of now. A note will be placed in records to fax genetic results to [facility] as available. [facility] 03-03-2024 Miscellaneous Notes Received patient call transferred from scheduling department. Patient has not yet been seen by MFM. Patient with questions/concerns regarding time of scheduled appointment. Patient scheduled for survey/echo on 04/14/24 but is concerned appointment should be scheduled sooner. Patient also requesting clarification on bed rest restrictions mentioned by OB. Reviewed information with Dr. Albert. Per Dr. Albret based on information received from OB, appointment date is appropriate. Attempted to contact [facility]. Office currently closed. Returned call to patient and explained Dr. Albert's recommendations. Encouraged patient to follow up with referring OB regarding questions for plan of care and restrictions. Patient agreeable and verbalizes understanding. documented in this encounter [facility] 03-03-2024 Telephone encounter Note Received patient call [...] and restrictions. Patient agreeable and verbalizes understanding. [facility] Debteye 02-07-2024 History of Presen t illness Narrative [...] a viral illness. documented in this encounter [facility] 01-18-2024 History of Presen t illness Narrative Patient surrogate, positive and not released from clinic yet. She is not feeling well and [employer] where she works heard crackles on left side. She wanted me to prescribe the med as she is and recommended zpak RX sent to pharmacy. 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 Diagnosis Rhonchi- Primary Abnormal chest [...] encounterProMedica Health SystemInstructionsNot on filedocumented in this encounterProMediWilson Health SystemInstructionsNot on filedocumented in this encounterProMediok Health SystemInstructionsNot on filedocumented in this encounterProMemorial Health System [facility] Summary Purpose Family History No Family [...] section and content) DATE CREATED AUTHOR 02/24/2022 [facility] [place] [facility] dical Specialist DATE CREATED AUTHOR AUTHOR'S ORGANIZ ATION 03/03/2022 [facility] DATE CREATED AUTHOR AUTHOR'S ORGANIZ ATION 12/18/2023 [facility] DATE CREATED AUTHOR AUTHOR'S ORGANIZ ATION 04/16/2024 [facility] DATE CREATED AUTHOR AUTHOR'S ORGANIZ ATION 05/15/2024 [facility] DATE CREATED AUTHOR AUTHOR'S ORGANIZ ATION 06/05/2024 [facility] [place] [facility] dical Specialists EPIC Care Teams (unrecognized sec tion and content) Solar Engineer Relationship Specialty Start Date End Date Laverne Dubon MD [address] [place] [address] PCP - General Family Medicine 08/30/23 Solar Engineer Relationship Specialty Start Date End Date Laverne Dubon MD [address] [facility] [place] [address] PCP - General Family Medicine 08/30/23 Solar Engineer Relationship Specialty Start Date End Date Laverne Dubon MD [address] [facility] [place] [address] PCP - General Family Medicine 08/30/23 Solar Engineer Relationship Specialty Start Date End Date Laverne Dubon MD [address] [place] [address] PCP - General Family Medicine 08/30/23 Solar Engineer Relationship Specialty Start Date End Date Laverne Dubon MD [address] [place] [address] PCP - General Family Medicine 08/30/23 Solar Engineer Relationship Specialty Start Date End Date Leslie Bahena DO [address] [place] [address] PCP - General Family Medicine 01/28/21 Solar Engineer Relationship Specialty Start Date End Date Leslie Bahena DO [address] [place] [address] PCP - General Family Medicine 01/28/21 Solar Engineer Relationship Specialty Start Date End Date Laverne Dubon MD [address] [place] [address] PCP - General Family Medicine 08/30/23 Solar Engineer Relationship Specialty Start Date End Date Laverne Dubon MD [address] [place] [address] PCP - General Family Medicine 08/30/23 Solar Engineer Relationship Specialty Start Date End Date Leslie Bahena DO [address] [place] [address] PCP - General Family Medicine 01/28/21 Solar Engineer Relationship Specialty Start Date End Date Leslie Bahena DO [address] [place] [address] PCP - General Family Medicine 01/28/21 Solar Engineer Relationship Specialty Start Date End Date Laverne Dubon MD [address] [place] [address] PCP - General Family Medicine 08/30/23 Reason [...] BE BASED ON THE PRIMARY CLINICAL RECORDS. [email or web address] provides no warranty or guarantee of the accuracy or completeness of information in this document.
== END 2024-06-10 10:45 | disposition home or self-care (01) ==
LOC: LAB 10:44
PROVIDERS: PCP Family Medicine; Visit Provider Obstetrics & Gynecology
DX: O42.90 Premature rupture of membranes, unspecified as to length of time between rupture and onset of labor, unspecified weeks of gestation (principal)
CPT/HCPCS: 36415; 87081